=== PATIENT | female | born 1985 | race Caucasian/White ===

== ENCOUNTER 2020-07-10 23:10 | Emergency (ER) | payer OTHER, SELFPAY ==
--- NOTE | ~2020-07-10 | CT_ITS ---
EXAMINATION: CT CHEST WITHOUT CONTRAST CLINICAL INFORMATION: Fall. Intoxicated. COMPARISON: Chest radiograph dated 08/03/2010 TECHNIQUE: Multidetector volumetric CT imaging of the chest was done. Axial MIP volume rendering provided. Sagittal and coronal reformatted images were obtained. This CT examination was performed using dose optimization techniques as appropriate, variously including the following: *Automated exposure control *Adjustment of mA and/or kV according to patient size (this includes techniques or standardized protocols for targeted exams where dose is matched to indication/reason for exam; i.e. extremities or head) *Use of iterative reconstruction technique DLP: 235 mGy-cm FINDINGS: LANDFILL ATTENDANT: Clear lungs LUNGS: Mild dependent subpleural atelectasis in the lower lobes bilaterally. As seen on image 48/63 of series 8, there are focal areas of subpleural groundglass attenuation adjacent to the right fourth, fifth, sixth, and seventh ribs posterolaterally which may correspond to small focal contusions. No additional airspace consolidation. A small 1.5 cm bleb is present within the left upper lobe anteriorly. There is a small focus of dependent mucus within the trachea and right mainstem bronchus. Central airways are otherwise clear. MEDIASTINUM: The mediastinum is normal. PLEURA: There is no pleural effusion. No pleural mass or thickening. AXILLA: No lymphadenopathy. UPPER ABDOMEN: Unremarkable. OSSEOUS STRUCTURES: Chronic appearing indentation the superior endplate of the T3 vertebral body is likely chronic, possibly developmental. No acute thoracic vertebral fractures are identified. As seen on the prior CT of the cervical spine, there is a nondisplaced fracture of the right first rib posteriorly. The right second and third ribs are intact. There is are nondisplaced fractures of the right fourth, fifth, and sixth ribs posterolaterally and the right sixth, seventh, and eighth fractures anteriorly. No left-sided rib fractures are identified. CT/CT chest wo con IMPRESSION: 1. Nondisplaced fracture of the right first rib posteriorly, the right fourth, fifth, and sixth ribs posterolaterally, and the right sixth, seventh, and eighth ribs anteriorly. 2. A few subtle subpleural pulmonary contusions in the right lung. Mild dependent atelectasis. No pneumothorax or pleural effusion.
--- NOTE | ~2020-07-10 | CT_ITS ---
EXAMINATION: CT ABDOMEN AND PELVIS WITH CONTRAST CLINICAL INFORMATION: Fall. Intoxicated. COMPARISON: None TECHNIQUE: Multidetector volumetric images were obtained from the superior aspect of the liver through the pubic symphysis following administration 85 mL of Omnipaque 350 intravenous contrast. Sagittal and coronal reformatted images were obtained on the technologist's workstation. Oral contrast: No This CT examination was performed using dose optimization techniques as appropriate, variously including the following: *Automated exposure control *Adjustment of mA and/or kV according to patient size (this includes techniques or standardized protocols for targeted exams where dose is matched to indication/reason for exam; i.e. extremities or head) *Use of iterative reconstruction technique DLP: 373 mGy-cm FINDINGS: LUNG BASES: Mild dependent atelectasis. No effusion. Heart is normal in size. LIVER, GALLBLADDER, AND BILIARY TREE: Relative hypoattenuation of the hepatic parenchyma is consistent with steatosis. Liver is normal in size and contour. The gallbladder is unremarkable with no evidence of radiopaque gallstones, gallbladder wall thickening, or obvious pericholecystic inflammatory changes. PANCREAS: Unremarkable. SPLEEN: Unremarkable. ADRENAL GLANDS: Unremarkable. KIDNEYS AND URETERS: The kidneys are normal in size, shape, and attenuation. No hydronephrosis, hydroureter, or calculi seen. No perinephric stranding. BLADDER: Markedly distended. Normal wall thickness. No appreciable intraluminal abnormalities. GASTROINTESTINAL TRACT: Stomach, small bowel, and colon are normal in caliber. No bowel wall thickening or surrounding inflammatory changes. Appendix is normal. No intraperitoneal free fluid or free air. ABDOMINAL WALL: No significant hernia is appreciated. LYMPH NODES: Normal. VASCULAR: Unremarkable. PELVIC VISCERA: Multiple follicular cysts are present at both ovaries. No suspicious focal abnormalities. There is a hypodense curved tubular structure within the vagina which may correspond to a tampon. There is a intermediate density 2.2 x 1.8 x 2.4 cm cystic structure within the right vaginal wall posterolaterally. This could correspond to an epidermoid inclusion cyst based upon the density . Bartholin's gland cyst or Luis Alberto's duct cyst are also possible. OSSEOUS STRUCTURES: No acute fracture or malalignment. CT/CT abdomen pelvis w con IMPRESSION: 1. No acute abnormalities in the abdomen and pelvis. 2. Markedly distended bladder 3. Hepatic steatosis. 4. Foreign body in the vagina, likely a tampon. 5. A 2.4 cm cystic structure in the lateral vaginal wall, potentially epidermal inclusion cyst, Bartholin's gland cyst, or Luis Alberto's duct cyst.
--- NOTE | ~2020-07-10 | CT_ITS ---
EXAMINATION: HEAD CT WITHOUT CONTRAST CERVICAL SPINE CT WITHOUT CONTRAST CLINICAL INFORMATION: Fall. Intoxicated. COMPARISON: 08/03/2010 TECHNIQUE: Contiguous axial imaging of the head was performed without the administration of IV contrast. Axial multidetector volumetric images were also performed through the cervical spine without intravenous contrast. Multiplanar reconstructed images in coronal and sagittal orientations were submitted. This CT examination was performed using dose optimization techniques as appropriate, variously including the following: *Automated exposure control *Adjustment of mA and/or kV according to patient size (this includes techniques or standardized protocols for targeted exams where dose is matched to indication/reason for exam; i.e. extremities or head) *Use of iterative reconstruction technique DOSE: 982 mGy-cm FINDINGS: HEAD: There is no evidence of acute intracranial hemorrhage or territorial infarction. No abnormal mass-effect or midline shift. No extra-axial fluid collections. Andrade to white matter differentiation is well preserved. The ventricles are normal in size and configuration. There is no abnormal attenuation within the brain parenchyma. The soft tissues and osseous structures are otherwise normal. There is a 7 mm subgaleal hematoma over the right parietal calvarium. No underlying calvarial fractures are identified. The sinuses and mastoid air cells are clear. CERVICAL SPINE: Vertebral body heights are normal. No fractures of the vertebral bodies or posterior elements. Reversal of the normal cervical lordosis is likely positional or degenerative. No vertebral body or posterior element subluxation. There is an acute fracture of the right first rib posteriorly near the costovertebral junction. No additional fractures are identified. The craniocervical and atlantoaxial articulations are normal. There is mild degenerative disc disease at C5-C6 and C6-C7 with small endplate osteophytes. Facet joints are normal. Central canal and neural foramina appear patent without appreciable stenoses. No significant paravertebral soft tissue swelling. Cervical soft tissues are unremarkable. Imaged portions of the lung apices are clear. CT/CT cervical spine wo con IMPRESSION: 1. No acute intracranial pathology. Subgaleal hematoma over the right parietal calvarium. No underlying fracture. 2. No acute fracture or malalignment in the cervical spine. 3. Acute nondisplaced fracture of the right first rib posteriorly.
[2020-07-10 23:22] VITALS: BP 142/106; PULSE 100; RESP 16; TEMP 36.7; O2SAT 99; BMI 20.4
--- NOTE | 2020-07-11 00:09 | ED_ITS ---
HPI - Fall General Chief Complaint: Fall Stated Complaint: fall etoh Time Seen by Provider: 07/11/20 00:09 Source: patient Mode of arrival: EMS History of Present Illness HPI Narrative: This is a 34-year-old female who is brought in by EMS. She states that she had couple minutes today and then in EMS report had stated a six-pack of beer this evening. She states she is unclear of the sequence of events as that ?happened so fast? but denies hitting her head or loss of consciousness. However as per he heard a loud noise and found patient at the bottom of stairs unconscious for about 1 minute. Patient currently denies pain anywhere and denies any suicidal ideations and is declining detox at this time. Related Data Allergies Allergy/AdvReac Type Severity Reaction Status Date / Time Penicillins [PENICILLINS] Allergy Intermediate HIVES Verified 07/10/20 23:27 Review of Systems Review of Systems: Pertinent positives and negatives as stated in HPI 10 point review of systems is otherwise negative. [facility] Past Medical History Source: nursing notes reviewed Social History Social History Advance Directives: No Physical Exam Vital Signs: Vital Signs: Last Vital Signs Temp 98.0 F 07/10/20 23:22 Pulse 103 H 07/11/20 06:27 Resp 18 07/11/20 06:27 BP 147/93 H 07/11/20 06:27 Pulse Ox 100 07/11/20 06:27 Body Mass Index 20.4 VITAL SIGNS: Reviewed. GENERAL: Well developed, well nourished, in no acute distress. HEAD: Normocephalic/atraumatic EYES: PERRLA, EOMI EARS: Ext canals without abnormality, TMs non-bulging and non-erythematous, no hemotympanum NOSE: Nares patent bilateral OROPHARYNX: no oral lesions noted, posterior pharynx clear and no intraoral injury noted NECK: C-collar in place, no mid line cervical vertebral tenderness, no paraspinal tenderness LUNGS: Normal breath sounds. No adventitious sounds or accessory muscle use. SpO2<99> CARDIOVASCULAR: Regular rate and rhythm without noted murmurs ABDOMEN: Soft, non-tender, non-distended with bowel sounds. No rigidity. No guarding. No palpable masses or hernias noted MUSCULOSKELETAL: No tenderness, deformities, or effusions noted on gross inspection. EXTREMITIES: Full range of motion at bilateral shoulders, elbows, wrists with hand cut to length operator 5/5 and symmetric bilateral SKIN: Inspection of the skin reveals no ecchymosis, abrasions NEUROLOGIC: Alert and oriented x 4. Strength and sensation to light touch were grossly intact x 4. Course Course Course Narrative: This is a 34-year-old female with history and clinical presentation consistent with fall due to intoxication and no evidence of acute injury. However due to patient's intoxication will obtain CT scan of the head and cervical spine. On review of imaging for head and cervical spine it was noted that patient had a posterior right 1st rib fracture which prompted subsequent CT of the chest demonstrating fractures of 4/5/6/7/8, nondisplaced rib fractures with lung contusions and corresponding CT of the abdomen pelvis with IV contrast was negat ayaan for acute findings. On review of remaining investigations findings are consistent with chronic alcohol consumption. Patient treated for pain with Tylenol and Toradol as she is declining narcotics at this time due to current Suboxone program. 0625: On re-evaluation patient is having considerable pain and on further discussion and reassurance she is agreeable to receive additional narcotic pain medication. Patient then transferred in stable condition after receiving 25 mcg of fentanyl and 1 mg of Ativan. Reevaluation(s) Reevaluation #1: I discussed case with [facility], Dr. Posadas, who is accepting transfer to the ED. Time: 05:40 MDM - Fall Lab Data Result diagrams: 07/11/20 04:43 07/11/20 04:43 Labs: Lab Results 07/11/20 07/11/20 07/11/20 Range/Units 00:53 00:53 03:33 WBC (4.8-10.8) X10*3/uL RBC (4.20-5.50) X10*6/uL Hgb (12.0-16.0) g/dl Hct (37-47) % MCV (80-98) fL MCH (27.0-33.0) pg MCHC (31.0-35.0) g/dl RDW (11.0-16.0) % Plt Count (160-400) X10*3/uL MPV (9.4-12.3) fL Immature Gran % (Auto) (0.0-0.4) % Neut % (Auto) (45-73) % Lymph % (Auto) (20-40) % Cameron % (Auto) (2-11) % Eos % (Auto) (0-4) % Baso % (Auto) (0-2) % Lymph # (Auto) (1.2-4.9) X10*3/uL Cameron # (Auto) (0.1-1.2) X10*3/uL Eos # (Auto) (0.0-0.4) X10*3/uL Baso # (Auto) (0.0-0.2) X10*3/uL Abs Immat Gran (auto) (0.00-0.03) X10*3/uL Absolute Neuts (auto) (2.0-8.3) X10*3/uL Absolute Nucleated RBC (0.0-0.012) X10*3/uL Nucleated RBC % (auto) (0.0-0.2) /100WBC PT (10.8-13.0) SEC INR (0.9-1.1) Sodium (135-145) mmol/L Potassium (3.3-5.1) mmol/L Chloride (96-108) mmol/L Carbon Dioxide (22-29) mmol/L Anion Gap (12-20) BUN (9-16) mg/dL Creatinine (0.5-1.4) mg/dL Estim Creat Clear Calc Estimated GFR Random Glucose (60-115) mg/dL Calcium (8.4-10.2) mg/dL Total Bilirubin (0.0-1.0) mg/dL AST (5-31) U/L ALT (0-31) U/L Alkaline Phosphatase (39-117) U/L Total Protein (6.5-8.0) g/dL Albumin (3.5-5.0) g/dL Urine Test NEGATIVE (NEGATIVE) Urine Opiates Screen Not Detected (Not Detect) Ur Barbiturates Screen Not Detected (Not Detect) Ur Phencyclidine Scrn Not Detected (Not Detect) Ur Amphetamines Screen Not Detected (Not Detect) U Benzodiazepines Scrn Not Detected (Not Detect) Urine Cocaine Screen Not Detected (Not Detect) U Marijuana (THC) Screen POSITIVE H (Not Detect) Ethyl Alcohol mg/dL COVID-19 (MARCELLA) Negative (Negative) COVID-19 Clin Com See Note 07/11/20 07/11/20 07/11/20 Range/Units 04:43 04:43 04:43 WBC 10.7 (4.8-10.8) X10*3/uL RBC 4.01 L (4.20-5.50) X10*6/uL Hgb 13.8 (12.0-16.0) g/dl Hct 40.1 (37-47) % MCV 100.0 H (80-98) fL MCH 34.4 H (27.0-33.0) pg MCHC 34.4 (31.0-35.0) g/dl RDW 12.5 (11.0-16.0) % Plt Count 190 (160-400) X10*3/uL MPV 9.1 L (9.4-12.3) fL Immature Gran % (Auto) 1.0 H (0.0-0.4) % Neut % (Auto) 83.2 H (45-73) % Lymph % (Auto) 7.2 L (20-40) % Cameron % (Auto) 7.6 (2-11) % Eos % (Auto) 0.6 (0-4) % Baso % (Auto) 0.4 (0-2) % Lymph # (Auto) 0.8 L (1.2-4.9) X10*3/uL Cameron # (Auto) 0.8 (0.1-1.2) X10*3/uL Eos # (Auto) 0.1 (0.0-0.4) X10*3/uL Baso # (Auto) 0.0 (0.0-0.2) X10*3/uL Abs Immat Gran (auto) 0.11 H (0.00-0.03) X10*3/uL Absolute Neuts (auto) 8.9 H (2.0-8.3) X10*3/uL Absolute Nucleated RBC 0.000 (0.0-0.012) X10*3/uL Nucleated RBC % (auto) 0.0 (0.0-0.2) /100WBC PT 11.7 (10.8-13.0) SEC INR 1.0 (0.9-1.1) Sodium 140 (135-145) mmol/L Potassium 4.1 (3.3-5.1) mmol/L Chloride 101 (96-108) mmol/L Carbon Dioxide 29 (22-29) mmol/L Anion Gap 14 (12-20) BUN 6 L (9-16) mg/dL Creatinine 0.66 (0.5-1.4) mg/dL Estim Creat Clear Calc 103.3 Estimated GFR > 60 Random Glucose 103 (60-115) mg/dL Calcium 9.2 (8.4-10.2) mg/dL Total Bilirubin 0.5 (0.0-1.0) mg/dL AST 75 H (5-31) U/L ALT 24 (0-31) U/L Alkaline Phosphatase 60 (39-117) U/L Total Protein 7.2 (6.5-8.0) g/dL Albumin 4.7 (3.5-5.0) g/dL Urine Test (NEGATIVE) Urine Opiates Screen (Not Detect) Ur Barbiturates Screen (Not Detect) Ur Phencyclidine Scrn (Not Detect) Ur Amphetamines Screen (Not Detect) U Benzodiazepines Scrn (Not Detect) Urine Cocaine Screen (Not Detect) U Marijuana (THC) Screen (Not Detect) Ethyl Alcohol mg/dL COVID-19 (MARCELLA) (Negative) COVID-19 Clin Com 07/11/20 Range/Units 04:43 WBC (4.8-10.8) X10*3/uL RBC (4.20-5.50) X10*6/uL Hgb (12.0-16.0) g/dl Hct (37-47) % MCV (80-98) fL MCH (27.0-33.0) pg MCHC (31.0-35.0) g/dl RDW (11.0-16.0) % Plt Count (160-400) X10*3/uL MPV (9.4-12.3) fL Immature Gran % (Auto) (0.0-0.4) % Neut % (Auto) (45-73) % Lymph % (Auto) (20-40) % Cameron % (Auto) (2-11) % Eos % (Auto) (0-4) % Baso % (Auto) (0-2) % Lymph # (Auto) (1.2-4.9) X10*3/uL Cameron # (Auto) (0.1-1.2) X10*3/uL Eos # (Auto) (0.0-0.4) X10*3/uL Baso # (Auto) (0.0-0.2) X10*3/uL Abs Immat Gran (auto) (0.00-0.03) X10*3/uL Absolute Neuts (auto) (2.0-8.3) X10*3/uL Absolute Nucleated RBC (0.0-0.012) X10*3/uL Nucleated RBC % (auto) (0.0-0.2) /100WBC PT (10.8-13.0) SEC INR (0.9-1.1) Sodium (135-145) mmol/L Potassium (3.3-5.1) mmol/L Chloride (96-108) mmol/L Carbon Dioxide (22-29) mmol/L Anion Gap (12-20) BUN (9-16) mg/dL Creatinine (0.5-1.4) mg/dL Estim Creat Clear Calc Estimated GFR Random Glucose (60-115) mg/dL Calcium (8.4-10.2) mg/dL Total Bilirubin (0.0-1.0) mg/dL AST (5-31) U/L ALT (0-31) U/L Alkaline Phosphatase (39-117) U/L Total Protein (6.5-8.0) g/dL Albumin (3.5-5.0) g/dL Urine Test (NEGATIVE) Urine Opiates Screen (Not Detect) Ur Barbiturates Screen (Not Detect) Ur Phencyclidine Scrn (Not Detect) Ur Amphetamines Screen (Not Detect) U Benzodiazepines Scrn (Not Detect) Urine Cocaine Screen (Not Detect) U Marijuana (THC) Screen (Not Detect) Ethyl Alcohol 129 mg/dL COVID-19 (MARCELLA) (Negative) COVID-19 Clin Com Discharge Plan Discharge Clinical Impression: Hematoma Multiple fractures of ribs of right side Qualifiers: Encounter type: initial encounter Fracture type: closed Qualified Code(s): S22.41XA - Multiple fractures of ribs, right side, initial encounter for closed fracture Contusion of right lung Qualifiers: Encounter type: initial encounter Qualified Code(s): S27.321A - Contusion of lung, unilateral, initial encounter Patient Disposition: [facility] Transfer Details: Trauma with six rib fractures, lung contusion
[2020-07-11 01:07] LABS: UPreg QC Valid YES; Urine Pregnancy NEGATIVE (NEGATIVE)
[2020-07-11 03:28] LABS: Amphetamine Screen Urine Not Detected (Not Detect); Barbiturates, Urine Not Detected (Not Detect); Benzodiazepines Screen Urine Not Detected (Not Detect); Cannabinoid Screen Urine POSITIVE (Not Detect); Cocaine Screen Urine Not Detected (Not Detect); Opiate Screen Urine Not Detected (Not Detect); Phencyclidine Screen Urine Not Detected (Not Detect)
[2020-07-11 03:58] LABS: COVID-19 Test Negative (Negative); IDNOW Serial# 9DD0AD1C
[2020-07-11 04:00] VITALS: BP 137/94; PULSE 101; RESP 18; O2SAT 96
[2020-07-11] MEDS: Ketorolac Tromethamine 15 MG/ML VIAL IVPUSH (04:00)
[2020-07-11 04:48] LABS: MANUAL DIFF FLAG NO
[2020-07-11 04:49] LABS: Basophils Percent Auto 0.4 % (0-2); Eosinophils Absolute Auto 0.1 X10*3/uL (0.0-0.4); Eosinophils Percent Auto 0.6 % (0-4); Hematocrit 40.1 % (37-47); Hemoglobin 13.8 g/dl (12.0-16.0); Imm Gran Abs Auto 0.11 X10*3/uL (0.00-0.03); Lymphocytes Absolute Auto 0.8 X10*3/uL (1.2-4.9); Lymphocytes Percent Auto 7.2 % (20-40); Mean Corpuscular HGB Conc 34.4 g/dl (31.0-35.0); Mean Corpuscular Hemoglobin 34.4 pg (27.0-33.0); Mean Platelet Volume 9.1 fL (9.4-12.3); Monocytes Absolute Auto 0.8 X10*3/uL (0.1-1.2); Monocytes Percent Auto 7.6 % (2-11); Neutrophils Absolute Auto 8.9 X10*3/uL (2.0-8.3); Neutrophils Percent Auto 83.2 % (45-73); Platelet Count 190 X10*3/uL (160-400); Red Blood Count 4.01 X10*6/uL (4.20-5.50); Red Cell Distribution Width 12.5 % (11.0-16.0); White Blood Count 10.7 X10*3/uL (4.8-10.8)
[2020-07-11] MEDS: 0.9 % Sodium Chloride 1,000 ML 999 ML IV (04:52)
[2020-07-11 04:54] LABS: Prothrombin Time 11.7 SEC (10.8-13.0)
[2020-07-11 05:09] LABS: Ethanol 129 mg/dL
[2020-07-11 05:12] LABS: Alanine Aminotransferase 24 U/L (0-31); Albumin Level 4.7 g/dL (3.5-5.0); Alkaline Phosphatase 60 U/L (39-117); Anion Gap 14 (12-20); Aspartate Amino Transferase 75 U/L (5-31); Bilirubin Total 0.5 mg/dL (0.0-1.0); Blood Urea Nitrogen 6 mg/dL (9-16); Calcium 9.2 mg/dL (8.4-10.2); Carbon Dioxide 29 mmol/L (22-29); Chloride 101 mmol/L (96-108); Creatinine Clr Calc Pharmacy 103.3; Estimated Glomerular Filt Rate > 60; Glucose Random 103 mg/dL (60-115); Potassium 4.1 mmol/L (3.3-5.1); Sodium 140 mmol/L (135-145); Total Protein 7.2 g/dL (6.5-8.0)
[2020-07-11 06:27] VITALS: BP 147/93; PULSE 103; RESP 18; O2SAT 100
[2020-07-11] MEDS: Acetaminophen 325 MG TABLET 975 MG PO (06:32)
--- NOTE | 2020-07-11 06:37 | PC.NURSE ---
PT MEDICATED PER MD ORDER WITH PO TYLENOL. MD BERNAL TO BEDSIDE PRIOR TO PT'S DEPARTURE TO REASSESS PAIN AND ONCE AGAIN OFFERED ADDITIONAL PAIN MEDICATIONS FOR DISCOMFORT. PT INITIALLY NOT WANTING NARCOTICS DUE TO CURRENT SUBOXONE USE. PT NOW AGREEABLE TO STRONGER PAIN MEDICATION D/T 01/05 RIGHT MIDDLE BACK PAIN S/T RIB FX.
[2020-07-11] MEDS: LORazepam 2 MG/ML VIAL 1 MG IVPUSH (06:41)
[2020-07-11] MEDS: fentaNYL citrate/PF 100 MCG/2 ML VIAL 25 MCG IVPUSH (06:42)
[2020-07-11 06:50] VITALS: BP 123/87; PULSE 87; RESP 18; O2SAT 100
--- NOTE | 2020-07-11 06:57 | PC.NURSE ---
PT REPORTS IMPROVEMENT IN PAIN S/P MED ADMINISTRATION. LOADING FOR EMS TRANSPORT NOW
--- NOTE | 2020-07-11 07:17 | PC.NURSE ---
THIS RN ATTEMPTED TO GIVE NURSE TO NURSE REPORT AT [facility] BUT WAS UNSUCCESSFUL. CALL X2 WITH NO ANSWER AT [phone] AND CALLED TWICE TO [phone] WITH THE FIRST CALL RINGING UNTIL THE LINE DISCONNECTED AND THE 2ND CALL WAS UNANSWERED. THIS RN NOTIFIED BELT FIXER VIRGIE OF THE INABILITY TO REACH/CONNECT. PAPER WITH NOTES/INFORMATION LEFT WITH VIRGIE IF [facility] CALLS FOR REPORT.
== END 2020-07-11 07:00 | disposition short-term general hospital (02) ==
PROVIDERS: Emergency Provider Student in an Organized Health Care Education/Training Program
DX: S22.41XA Multiple fractures of ribs, right side, initial encounter for closed fracture (principal); S27.321A Contusion of lung, unilateral, initial encounter; F10.129 Alcohol abuse with intoxication, unspecified; R07.81 Pleurodynia; Y90.6 Blood alcohol level of 120-199 mg/100 ml; W01.0XXA Fall on same level from slipping, tripping and stumbling without subsequent striking against object, initial encounter; Y93.9 Activity, unspecified; Y92.9 Unspecified place or not applicable; Y99.9 Unspecified external cause status; Z20.822 Contact with and (suspected) exposure to COVID-19
CPT/HCPCS: 36415; 70450; 71250; 72125; 74177; 80053; 80307; 80320; 81025; 85025; 85610; 87635; 90471; 90715; 96361; 96365; 96375; 96376; 99284; J1885; J2060; J3010; Q9967

== ENCOUNTER 2020-11-15 23:53 | Inpatient (IN) | payer OTHER, SELFPAY ==
--- NOTE | ~2020-11-15 | CT_ITS ---
EXAMINATION: CT ABDOMEN AND PELVIS WITH CONTRAST CLINICAL INFORMATION: Pancreatitis COMPARISON: 07/11/2020 TECHNIQUE: Multidetector volumetric images were obtained from the superior aspect of the liver through the pubic symphysis following administration 85 mL of Omnipaque 350 intravenous contrast. Sagittal and coronal reformatted images were obtained on the technologist's workstation. Oral contrast: No This CT examination was performed using dose optimization techniques as appropriate, variously including the following: *Automated exposure control *Adjustment of mA and/or kV according to patient size (this includes techniques or standardized protocols for targeted exams where dose is matched to indication/reason for exam; i.e. extremities or head) *Use of iterative reconstruction technique DLP: 3 L5 mGy-cm FINDINGS: LUNG BASES: The visualized lung bases are unremarkable. LIVER, GALLBLADDER, AND BILIARY TREE: The liver demonstrates hypoattenuation consistent with steatosis. No biliary ductal dilatation is present. The gallbladder is unremarkable with no evidence of radiopaque gallstones, gallbladder wall thickening, or obvious pericholecystic inflammatory changes. PANCREAS: Mild stranding is noted in the proximal pancreas, suspicious for pancreatitis. No focal necrosis is seen. Trace retroperitoneal fluid is noted. SPLEEN: Unremarkable. ADRENAL GLANDS: Unremarkable. KIDNEYS AND URETERS: The kidneys are normal in size, shape, and attenuation. No hydronephrosis, hydroureter, or obstructing calculi seen. No perinephric stranding. BLADDER: Unremarkable. GASTROINTESTINAL TRACT: No evidence of bowel obstruction. There is mural prominence of much of the collapsed colon, of uncertain clinical significance. The appendix is unremarkable. No free air is seen. ABDOMINAL WALL: No significant hernia is appreciated. LYMPH NODES: Normal. VASCULAR: Unremarkable. PELVIC VISCERA: Unremarkable. OSSEOUS STRUCTURES: Healing posterior lower right rib fractures noted. CT/CT abdomen pelvis w con IMPRESSION: 1. Mild peripancreatic stranding and fluid, suspicious for pancreatitis. 2. Thick-walled appearance of much of the colon, which could be accentuated by luminal collapse. In the proper clinical setting, a colitis would be difficult to exclude. 3. Hepatic steatosis.
[2020-11-15 23:54] VITALS: BP 146/101; PULSE 122; RESP 18; TEMP 36.9; O2SAT 94; BMI 19.7
[2020-11-16] VITALS (15 sets, daily range): BP systolic 119–157; BP diastolic 84–114; PULSE 88–131; RESP 13–20; TEMP 37.4; O2SAT 96–100; BMI 20.5
--- NOTE | 2020-11-16 | ECG_ITS ---
Test Reason : N/V Blood Pressure : / mmHG Vent. Rate : 092 BPM Atrial Rate : 092 BPM P-R Int : 164 ms QRS Dur : 070 ms QT Int : 384 ms P-R-T Axes : 058 045 046 degrees QTc Int : 474 ms Normal sinus rhythm Normal ECG When compared with ECG of 03-AUG-2010 13:47, Vent. rate has decreased BY 52 BPM Referred By: Gareth Valecnia Electronically Signed By:CATHERINE AU MD
--- NOTE | 2020-11-16 00:15 | PC.NURSE ---
IV established, labs obtained. Pt self reports daily ETOH, states she drinks vodka nips throughout the day, unable to estimate amount. Pt states that due to the vomiting, she has not drank any alcohol today. Pt states that it has been a long time since she has gone a day without alcohol. Pt noted to be tremulous, pt insisting her tremor are r/t chills and not alcohol withdrawals. VSS at this time, NSR on the monitor @ 88 bpm. Pt aware of plan for IVF and antiemetics.
--- NOTE | 2020-11-16 00:18 | ED_ITS ---
HPI - Nausea/Vomiting/Diarrhea General Chief complaint: Nausea/Vomiting/Diarrhea Stated complaint: vomiting Time Seen by Provider: 11/16/20 00:18 Source: patient Mode of arrival: ambulatory Limitations: no limitations History of Present Illness HPI Narrative: Patient no significant past medical history does drink alcohol last drink was 2 days ago been vomiting all day today more than 15 times with slight epigastric pain and back pain denies any fever no diarrhea no history of alcohol withdrawal in the past no urinary complaints no chills patient does not get sick like this very often no use of marijuana Related Data Allergies Allergy/AdvReac Type Severity Reaction Status Date / Time Penicillins [PENICILLINS] Allergy Intermediate HIVES Verified 11/15/20 23:58 Review of Systems Review of Systems: Constitutional : No Weight loss, No Fever, No Chills ENT/Mouth : No sore throat, No Rhinorrhea Eyes: No Eye Pain, No Swelling Cardiovascular : No Chest Pain, no palpitations Respiratory : No Cough, No Sputum, no shortness of breath Gastrointestinal : ++ Nausea, ++ Vomiting, No Diarrhea, + abdominal Pain, no black stools Genitourinary : No Dysuria, No Urinary Frequency Musculoskeletal : No joint pain, No Myalgias, No Joint Swelling Skin : No Skin Lesions, No rash Neuro : No Weakness, No Numbness, No Dizziness, No Headache Psych : No Anxiety/Panic, No Depression Heme/Lymph: No Bruising, No Lymphadenopathy Endocrine : No Polyuria, No Polydipsia All other systems reviewed and are negative [facility] Past Medical History Medical History No known health problems Social History Social History Advance Directives: No Advance Directives Information Provided: Yes Patient : No Physical Exam Vital Signs: Vital Signs: Last Vital Signs Temp 98.4 F 11/15/20 23:54 Pulse 88 11/16/20 00:50 Resp 16 11/16/20 00:50 BP 146/101 H 11/15/20 23:54 Pulse Ox 94 11/15/20 23:54 Body Mass Index 19.7 Appearance: Alert. Oriented X3. No acute distress. Eyes: PERRLA, No Nystagmus ENT: Pharynx normal. Dry oral mucosa Neck: Normal inspection. Neck supple. CVS: Normal heart rate and rhythm. Pulses normal. Respiratory: No respiratory distress. Equal air entry bilateral, no wheezing/rales/rhonchi Abdomen: Soft and mild epigastric tenderness Bowel sounds are present, no mass palpable, no CVA tenderness Skin: Skin warm and dry. Normal skin color. Normal skin turgor. Extremities: No lower extremity edema. No calf tenderness Neuro: Oriented X 3. No motor deficit. No sensory deficit.No cerebellar signs , cranial nerves II-XII intact MDM - Nausea/Vomiting/Diarrhea MDM Narrative Medical decision making narrative: Patient with alcohol dependence with abdominal pain and vomiting lab workup and CT scan showed uncomplicated acute pancreatitis. Will admit patient for alcohol induced pancreatitis and alcohol dependence Lab Data Attestation: I reviewed the patient's lab results. Result diagrams: 11/16/20 00:33 11/16/20 00:33 Labs: Lab Results 11/16/20 11/16/20 11/16/20 Range/Units 00:33 00:33 00:33 WBC 10.0 (4.8-10.8) X10*3/uL RBC 4.09 L (4.20-5.50) X10*6/uL Hgb 14.9 (12.0-16.0) g/dl Hct 41.8 (37-47) % MCV 102.2 H (80-98) fL MCH 36.4 H (27.0-33.0) pg MCHC 35.6 H (31.0-35.0) g/dl RDW 12.9 (11.0-16.0) % Plt Count 211 (160-400) X10*3/uL MPV 10.0 (9.4-12.3) fL Immature Gran % (Auto) 0.5 H (0.0-0.4) % Neut % (Auto) 87.0 H (45-73) % Lymph % (Auto) 2.7 L (20-40) % [place] % (Auto) 9.6 (2-11) % Eos % (Auto) 0.0 (0-4) % Baso % (Auto) 0.2 (0-2) % Lymph # (Auto) 0.3 L (1.2-4.9) X10*3/uL [place] # (Auto) 1.0 (0.1-1.2) X10*3/uL Eos # (Auto) 0.0 (0.0-0.4) X10*3/uL Baso # (Auto) 0.0 (0.0-0.2) X10*3/uL Abs Immat Gran (auto) 0.05 H (0.00-0.03) X10*3/uL Absolute Neuts (auto) 8.7 H (2.0-8.3) X10*3/uL Absolute Nucleated RBC 0.000 (0.0-0.012) X10*3/uL Nucleated RBC % (auto) 0.0 (0.0-0.2) /100WBC Sodium 144 (135-145) mmol/L Potassium 3.6 (3.3-5.1) mmol/L Chloride 96 (96-108) mmol/L Carbon Dioxide 24 (22-29) mmol/L Anion Gap 28 H (12-20) BUN 7 L (9-16) mg/dL Creatinine 0.85 (0.5-1.4) mg/dL Estim Creat Clear Calc 76.8 Estimated GFR > 60 Random Glucose 96 (60-115) mg/dL Calcium 10.2 D (8.4-10.2) mg/dL Magnesium 1.3 L* (1.6-2.6) mg/dL Total Bilirubin 2.4 H (0.0-1.0) mg/dL AST 187 H (5-31) U/L ALT 69 H (0-31) U/L Alkaline Phosphatase 133 H D (39-117) U/L Total Protein 7.6 (6.5-8.0) g/dL Albumin 4.7 (3.5-5.0) g/dL Lipase 503 H (8-78) U/L Beta HCG, Quant < 2 mIU/mL Urine Color Urine Appearance Urine pH (5.0-8.0) Ur Specific [place] (1.005-1.025) Urine Protein (NEG-TRACE) MG/DL Urine Glucose (UA) (NEG) MG/DL Urine Ketones (NEG) MG/DL Urine Blood (NEG) Urine Nitrite (NEG) Ur Leukocyte Esterase (NEG) Urine RBC (0) /HPF Urine WBC (0-4) /HPF Ur Squamous Epith Cells /LPF Urine Bacteria /LPF Urine Mucus /LPF Ethyl Alcohol < 10 mg/dL 11/16/20 Range/Units 04:19 WBC (4.8-10.8) X10*3/uL RBC (4.20-5.50) X10*6/uL Hgb (12.0-16.0) g/dl Hct (37-47) % MCV (80-98) fL MCH (27.0-33.0) pg MCHC (31.0-35.0) g/dl RDW (11.0-16.0) % Plt Count (160-400) X10*3/uL MPV (9.4-12.3) fL Immature Gran % (Auto) (0.0-0.4) % Neut % (Auto) (45-73) % Lymph % (Auto) (20-40) % [place] % (Auto) (2-11) % Eos % (Auto) (0-4) % Baso % (Auto) (0-2) % Lymph # (Auto) (1.2-4.9) X10*3/uL [place] # (Auto) (0.1-1.2) X10*3/uL Eos # (Auto) (0.0-0.4) X10*3/uL Baso # (Auto) (0.0-0.2) X10*3/uL Abs Immat Gran (auto) (0.00-0.03) X10*3/uL Absolute Neuts (auto) (2.0-8.3) X10*3/uL Absolute Nucleated RBC (0.0-0.012) X10*3/uL Nucleated RBC % (auto) (0.0-0.2) /100WBC Sodium (135-145) mmol/L Potassium (3.3-5.1) mmol/L Chloride (96-108) mmol/L Carbon Dioxide (22-29) mmol/L Anion Gap (12-20) BUN (9-16) mg/dL Creatinine (0.5-1.4) mg/dL Estim Creat Clear Calc Estimated GFR Random Glucose (60-115) mg/dL Calcium (8.4-10.2) mg/dL Magnesium (1.6-2.6) mg/dL Total Bilirubin (0.0-1.0) mg/dL AST (5-31) U/L ALT (0-31) U/L Alkaline Phosphatase (39-117) U/L Total Protein (6.5-8.0) g/dL Albumin (3.5-5.0) g/dL Lipase (8-78) U/L Beta HCG, Quant mIU/mL Urine Color YELLOW Urine Appearance HAZY Urine pH 7.5 (5.0-8.0) Ur Specific [place] 1.015 (1.005-1.025) Urine Protein 2+ H (NEG-TRACE) MG/DL Urine Glucose (UA) NEG (NEG) MG/DL Urine Ketones 15 (NEG) MG/DL Urine Blood 3+ H (NEG) Urine Nitrite NEG (NEG) Ur Leukocyte Esterase NEG (NEG) Urine RBC 0-2 (0) /HPF Urine WBC 0-2 (0-4) /HPF Ur Squamous Epith Cells 1+ /LPF Urine Bacteria 4+ /LPF Urine Mucus TRACE /LPF Ethyl Alcohol mg/dL Discharge Plan Discharge Clinical Impression: Hypomagnesemia Pancreatitis Qualifiers: Chronicity: acute Pancreatitis type: alcohol induced Acute pancreatitis complication: no infection or necrosis Qualified Code(s): K85.20 - Alcohol induced acute pancreatitis without necrosis or infection Patient Disposition: Admitted As Inpatient
--- NOTE | 2020-11-16 00:27 | PC.NURSE ---
at bedside for primary eval.
[2020-11-16 00:39] LABS: MANUAL DIFF FLAG NO
[2020-11-16] MEDS: 0.9 % Sodium Chloride 1,000 ML 999 ML IVCONT ×3 (00:41→01:53)
[2020-11-16] MEDS: Famotidine/PF 20 MG/2 ML VIAL IVPUSH ×3 (00:41→22:38)
[2020-11-16] MEDS: Acetaminophen 325 MG TABLET 650 MG PO (00:48)
[2020-11-16 00:59] LABS: Ethanol < 10 mg/dL
[2020-11-16 01:04] LABS: Alanine Aminotransferase 69 U/L (0-31); Albumin Level 4.7 g/dL (3.5-5.0); Alkaline Phosphatase 133 U/L (39-117); Anion Gap 28 (12-20); Aspartate Amino Transferase 187 U/L (5-31); Bilirubin Total 2.4 mg/dL (0.0-1.0); Blood Urea Nitrogen 7 mg/dL (9-16); Calcium 10.2 mg/dL (8.4-10.2); Carbon Dioxide 24 mmol/L (22-29); Chloride 96 mmol/L (96-108); Creatinine Clr Calc Pharmacy 76.8; Estimated Glomerular Filt Rate > 60; Glucose Random 96 mg/dL (60-115); Lipase 503 U/L (8-78); Potassium 3.6 mmol/L (3.3-5.1); Sodium 144 mmol/L (135-145); Total Protein 7.6 g/dL (6.5-8.0)
--- NOTE | 2020-11-16 01:10 | PC.NURSE ---
Pt vomiting all over self and bed. MD aware. Plan for Ativan and Zofran.
[2020-11-16] MEDS: LORazepam 2 MG/ML VIAL 1 MG IVPUSH ×3 (01:15→20:23)
[2020-11-16] MEDS: ondansetron HCL 4 MG/2 ML VIAL IVPUSH ×2 (01:15→07:10)
[2020-11-16 01:18] LABS: Basophils Percent Auto 0.2 % (0-2); Hematocrit 41.8 % (37-47); Hemoglobin 14.9 g/dl (12.0-16.0); Imm Gran Abs Auto 0.05 X10*3/uL (0.00-0.03); Imm Gran Pct Auto 0.5 % (0.0-0.4); Lymphocytes Absolute Auto 0.3 X10*3/uL (1.2-4.9); Lymphocytes Percent Auto 2.7 % (20-40); Mean Corpuscular HGB Conc 35.6 g/dl (31.0-35.0); Mean Corpuscular Hemoglobin 36.4 pg (27.0-33.0); Mean Corpuscular Volume 102.2 fL (80-98); Monocytes Percent Auto 9.6 % (2-11); Neutrophils Absolute Auto 8.7 X10*3/uL (2.0-8.3); Platelet Count 211 X10*3/uL (160-400); Red Blood Count 4.09 X10*6/uL (4.20-5.50); Red Cell Distribution Width 12.9 % (11.0-16.0)
[2020-11-16] MEDS: Morphine Sulfate 4 MG/ML CARTRIDGE IVPUSH ×2 (01:53→04:13)
--- NOTE | 2020-11-16 01:56 | PC.NURSE ---
Pt medicated per JUN for 1010 back pain. Pt aware of plan for CT due to elevated Lipase. VSS at this time, pt tachycardic @ 115 bpm. CIWA noted in worklist.
[2020-11-16 02:12] LABS: Magnesium 1.3 mg/dL (1.6-2.6)
--- NOTE | 2020-11-16 02:12 | PC.NURSE ---
Magnesium 1.3 RN notified notified
[2020-11-16] MEDS: Magnesium Sulfate/H2O 2 GM/50 ML PIGGYBACK IV (02:22)
--- NOTE | 2020-11-16 02:28 | PC.NURSE ---
Mag infusing per MAR. Pt awaiting CT.
[2020-11-16 03:05] LABS: HCG Quantitative < 2 mIU/mL
[2020-11-16] MEDS: iohexoL 350 MG/ML 100 ML INFUS..BTL 85 ML IV (03:40)
[2020-11-16 04:26] LABS: Glucose Urine UA NEG (NEG); Leukocyte Esterase Urine NEG (NEG); Nitrite Urine NEG (NEG); PH 7.5 (5.0-8.0); Specific Gravity - Urine 1.015 (1.005-1.025); Urine Blood 3+ (NEG); Urine Ketones 15 MG/DL (NEG); Urine Protein 2+ MG/DL (NEG-TRACE)
[2020-11-16 04:31] LABS: Appearance Urine HAZY; Color Urine YELLOW
[2020-11-16 04:42] LABS: Bacteria Urine 4+ /LPF; RBC Urine 0-2 /HPF (0); Squamous Epithelial Cell Urine 1+ /LPF; WBC Urine 0-2 /HPF (0-4)
[2020-11-16 04:43] LABS: Mucus Urine TRACE /LPF; UACC CULT YES
[2020-11-16] MEDS: Folic Acid 1 MG TABLET PO ×2 (05:20→09:37)
[2020-11-16] MEDS: Thiamine HCL 100 MG TABLET PO ×2 (05:21→09:37)
--- NOTE | 2020-11-16 05:41 | PC.NURSE ---
Hospitalist at bedside.
--- NOTE | 2020-11-16 05:46 | PM.IMHP ---
History of Present Illness Date of Service: 11/16/20 Chief Complaint: Nausea vomiting 35-year-old female with no significant past medical history except for alcohol use presented to the hospital with a chief complaint of nausea vomiting. Patient mentioned that she had multiple episodes of nausea and vomiting yesterday; denies any blood in the vomitus. Denies any fever chills cough. Denies any nausea vomiting. Denies any abdominal discomfort. Later she developed pain in her back of the shoulders bilaterally; denies any numbness tingling or neck pain. Denies any falls or trauma. A attributes the pain in the back to profuse vomiting; Patient reports that she has been drinking alcohol about 5 shots per day almost every day for the past 6 months; Reports that she smokes half pack of cigarettes per day denies any illicit drug use. Patient denies taking any eoib-duw-sfdartt pain medications; denies eating food outside; patient does not think it is food poisoning; Review of all other systems is negative except mentioned above ER course: Per ER team patient CT abdomen showed possible pancreatitis and early colitis; lab showed hypomagnesemia Jailyn-repleted and mild transaminitis; admitted to the hospital for further management. [facility] Medical History No known health problems Social History Alcohol intake: current Alcohol intake frequency: 3 or more drinks per day Alcohol type: hard liquor Patient Tobacco Use Status: Current everyday Tobacco user Use of substances other than those prescribed or required for medical reasons: No Advance Directives: No Advance Directives Information Provided: Yes Patient : No service: No Current occupational status: unemployed Meds Allergies Allergy/AdvReac Type Severity Reaction Status Date / Time Penicillins [PENICILLINS] Allergy Intermediate HIVES Verified 11/15/20 23:58 Active Medications: Current Medications Generic Name Dose Route Start Last Admin Trade Name Rossq PRN Reason Stop Dose Admin Famotidine 20 mg 11/16/20 09:00 Famotidine/Pf 20 Mg/2 Ml Vial IVPUSH BID NESS Folic Acid 1 mg 11/16/20 09:00 Folic Acid 1 Mg Tablet PO 11/19/20 08:59 DAILY NESS Hydromorphone HCl 0.5 mg 11/16/20 05:38 Hydromorphone Hcl 0.5 Mg/0.5 Ml Syringe SUBCUT Q4H PRN Pain, Severe (Pain Scale 7-10) Hydroxyzine HCl 25 mg 11/16/20 05:38 Hydroxyzine Hcl 25 Mg Tablet PO Q6H PRN Anxiety Dextrose/Sodium Chloride 1,000 mls @ 100 mls/hr 11/16/20 05:45 D51/2ns IVCONT .Q10H NESS Lorazepam 1 mg 11/16/20 05:38 Lorazepam 1 Mg Tablet PO 11/20/20 05:37 Q4H PRN Breakthrough alcohol withdrawa Melatonin 6 mg 11/16/20 05:38 Melatonin 3 Mg Tablet PO BEDTIME PRN Insomnia Multivitamins 1 tab 11/16/20 09:00 B-Complex With Vitamin C Tablet PO DAILY NESS Nicotine 14 mg 11/16/20 09:00 Nicotine 14 Mg Patch.Td24 TRANSDERMA DAILY [facility] Sodium Chloride 3 ml 11/16/20 08:00 0.9 % Sodium Chloride Flush 3 Ml Syringe IVFLUSH QSHIFT [facility] Thiamine HCl 100 mg 11/16/20 09:00 Thiamine Hcl 100 Mg Tablet PO 11/19/20 08:59 DAILY [facility] Home Medications Medication Instructions Recorded Confirmed Last Taken Type buprenorphine 2 mg-naloxone 0.5 mg 1 film BUCCAL DAILY 11/16/20 11/16/20 11/14/20 History sublingual film (Suboxone) Physical Exam Vital Signs and Narrative: Vital Signs: Last Vital Signs Temp 98.4 F 11/15/20 23:54 Pulse 88 11/16/20 00:50 Resp 16 11/16/20 00:50 BP 146/101 H 11/15/20 23:54 Pulse Ox 94 11/15/20 23:54 Body Mass Index 19.7 Gen: Appears be in no acute distress HEENT: NCAT, Moist mucosa. Pulmonary: Vesicular breath sounds, fair air entry CVS: Normal S1-S2 Abdomen: BS+, Soft, Nontender Extremities: Warm well perfused Neuro: Alert and awake. Results Labs CBC and Chem 7: 11/17/20 05:44 11/17/20 05:44 Labs: Laboratory Results - last 24 hr 11/16/20 11/16/20 11/16/20 00:33 00:33 00:33 MCV 102.2 H MCH 36.4 H MCHC 35.6 H RDW 12.9 Plt Count 211 MPV 10.0 Immature Gran % (Auto) 0.5 H Neut % (Auto) 87.0 H Lymph % (Auto) 2.7 L [place] % (Auto) 9.6 Eos % (Auto) 0.0 Baso % (Auto) 0.2 Lymph # (Auto) 0.3 L [place] # (Auto) 1.0 Eos # (Auto) 0.0 Baso # (Auto) 0.0 Abs Immat Gran (auto) 0.05 H Absolute Neuts (auto) 8.7 H Absolute Nucleated RBC 0.000 Nucleated RBC % (auto) 0.0 Anion Gap 28 H Estim Creat Clear Calc 76.8 Estimated GFR > 60 Random Glucose 96 Calcium 10.2 D Magnesium 1.3 L* Total Bilirubin 2.4 H AST 187 H ALT 69 H Alkaline Phosphatase 133 H D Total Protein 7.6 Albumin 4.7 Lipase 503 H Beta HCG, Quant < 2 Urine Color Urine Appearance Urine pH Ur Specific [place] Urine Protein Urine Glucose (UA) Urine Ketones Urine Blood Urine Nitrite Ur Leukocyte Esterase Urine RBC Urine WBC Ur Squamous Epith Cells Urine Bacteria Urine Mucus Ethyl Alcohol < 10 11/16/20 04:19 MCV MCH MCHC RDW Plt Count MPV Immature Gran % (Auto) Neut % (Auto) Lymph % (Auto) [place] % (Auto) Eos % (Auto) Baso % (Auto) Lymph # (Auto) [place] # (Auto) Eos # (Auto) Baso # (Auto) Abs Immat Gran (auto) Absolute Neuts (auto) Absolute Nucleated RBC Nucleated RBC % (auto) Anion Gap Estim Creat Clear Calc Estimated GFR Random Glucose Calcium Magnesium Total Bilirubin AST ALT Alkaline Phosphatase Total Protein Albumin Lipase Beta HCG, Quant Urine Color YELLOW Urine Appearance HAZY Urine pH 7.5 Ur Specific [place] 1.015 Urine Protein 2+ H Urine Glucose (UA) NEG Urine Ketones 15 Urine Blood 3+ H Urine Nitrite NEG Ur Leukocyte Esterase NEG Urine RBC 0-2 Urine WBC 0-2 Ur Squamous Epith Cells 1+ Urine Bacteria 4+ Urine Mucus TRACE Ethyl Alcohol Imaging Radiologist's Impressions: Impressions Abdomen/Pelvis CT 11/16/20 01:42 IMPRESSION: 1. Mild peripancreatic stranding and fluid, suspicious for pancreatitis. 2. Thick-walled appearance of much of the colon, which could be accentuated by luminal collapse. In the proper clinical setting, a colitis would be difficult to exclude. 3. Hepatic steatosis. Assessment and Plan (1) Pancreatitis: Status: Acute 35-year-old female with a past medical history of alcohol abuse presented to the hospital with a chief complaint of nausea and vomiting; noted to have pancreatitis/colitis/transaminitis. Admitted to the hospital for further management. Back pain: pain located on the bilateral shoulder blades in the back; reproducible. Likely musculoskeletal. Exam nonfocal. Neck is supple. Pancreatitis: In the setting of alcohol use. Pain control. Supportive care. IV fluids. Colitis: Possible viral gastroenteritis. Patient is afebrile. No indication for antibiotics at this time. Will continue to monitor. Transaminitis: Likely in the setting of alcohol use versus hepatitis. Will send acute hepatitis panel. Monitor liver enzymes. Alcohol abuse: Will keep the patient on CO protocol with Ativan. Continue thiamine, folate, multivitamins. Hypomagnesemia: Repleted Elevated anion gap: Ordered lactate levels. Also alcoholic ketoacidosis versus starvation ketosis. Continue IV fluids. Tobacco dependence: Counseled on smoking cessation. Offered nicotine patch. DVT prophylaxis: SCD boots Code status: Full code Quality Stroke Does the patient have a stroke diagnosis?: No VTE Prior VTE?: No VTE Risk Level:: Medical - moderate - high VTE Device Contraindication: N/A - Device Ordered VTE Drug Contraindication: Treatment Not Indicated
--- NOTE | 2020-11-16 05:58 | PC.NURSE ---
This RN contacting Hospitalist via [place] over concern for alcohol withdrawals throughout admission. This RN requesting Pheno protocol. Per Hospitalist, to try Ativan q4h first. Hospitalist aware last drink 22 hours ago.
[2020-11-16] MEDS: Dextrose 5 % and 0.45 % NaCl 1,000 ML 100 ML IVCONT (06:12)
[2020-11-16 06:29] LABS: COVID-19 Test Negative (Negative); IDNOW Serial# 9DD0AD1C
--- NOTE | 2020-11-16 06:30 | PC.NURSE ---
EKG, VS and CIWA obtained by this RN. Covid sent for analysis. Pt resting in bed, aware that she is NPO @ this time. Continue to monitor.
--- NOTE | 2020-11-16 06:39 | PC.NURSE ---
Med Rec completed by this RN. Pharmacy contacting regarding Suboxone, per pt, she cuts each film into quarters, only taking 2 mg daily.
[2020-11-16] MEDS: Lactated Ringers 1,000 ML 150 ML IVCONT ×3 (07:39→21:56)
--- NOTE | 2020-11-16 07:42 | PC.NURSE ---
report taken from LUISANA Rodrigues. Pt awake and alert in bed, awaiting bed assignment. pt is NPO and is aware of this. requesting Zofran at this time for nausea, no vomiting at this time.
[2020-11-16 08:08] LABS: Lactic Acid 1.3 mmol/L (0.5-2.0)
[2020-11-16 08:33] LABS: Alanine Aminotransferase 61 U/L (0-31); Albumin Level 3.6 g/dL (3.5-5.0); Alkaline Phosphatase 106 U/L (39-117); Aspartate Amino Transferase 247 U/L (5-31); Bilirubin Direct 1.3 mg/dL (0.0-0.5); Bilirubin Total 2.3 mg/dL (0.0-1.0); Total Protein 5.6 g/dL (6.5-8.0)
[2020-11-16] MEDS: HYDROmorphone HCl 0.5 MG/0.5 ML SYRINGE SUBCUT ×2 (09:37→15:20)
[2020-11-16] MEDS: LORazepam 1 MG TABLET PO ×2 (09:37→13:37)
[2020-11-16] MEDS: Nicotine 14 MG PATCH.TD24 TRANSDERMA (09:37)
[2020-11-16] MEDS: ALPRAZolam 0.5 MG TABLET PO (15:20)
[2020-11-16] MEDS: 0.9 % Sodium Chloride Flush 3 ML SYRINGE IVFLUSH ×2 (15:24→23:49)
--- NOTE | 2020-11-16 16:56 | PC.NURSE ---
pt Pulse 133, BP 140/114 she is tremulous and anxious - reached out to Dr. Lopez for possible phenobarbital via TC he agreed to start med. will administer when in pyxis.
[2020-11-16] MEDS: PHENobarbitaL sodium 130 MG/ML VIAL 209 MG IM (17:26)
--- NOTE | 2020-11-16 18:51 | PC.NURSE ---
pt has unplugged herself from her fluids, cardiac monitoring and BP cuff, she wandered to another pts room. she is confused, paranoid and anxious. pt reports not knowing anyone here and feeling scared pt also was looking for her bag which was sitting on the bed with her. she reported to needed to leave, and was going to drive home . pt proceeded to strip off her moses and put on her street clothes. LUISANA Merino called pts BF and spoke with him about talking with the pt. he called the pt and reassured her. pt is now getting changed back into a moses. she is confused, slightly unstable on her feet. reports feeling very anxious and paranoid. will contact MD and update.
--- NOTE | 2020-11-16 19:16 | MHC.CM.PN ---
CM met with admitted pt pending bed assignment. Pt with hx suboxone for opiates-clean x 4 years per pt. and hx etoh misuse. Pt agreeable to speaking with recovery support. Pt interested in MAT for ETOH. Feels she needs to stop. Pt lives with S.O Charlie Lewis. HCP reviewed, completed and signed per protocol. HCP/SO Charlie Lewis ([phone]). D/C plan is home per patient. Transportation by family. CM to follow for d/c needs.
--- NOTE | 2020-11-16 19:32 | PC.NURSE ---
nurse to nurse report given to Wendy LIBEERMAN
[2020-11-16] MEDS: PHENobarbitaL sodium 130 MG/ML VIAL 156 MG IM ×2 (19:51→23:47)
--- NOTE | 2020-11-16 19:55 | PC.NURSE ---
pt attempting to get out of bed, taking senior grant writer off and stating she needs to leave. pt hr was sinus tach at 160 when getting out of bed and was on the phone with family/significant other stating that she was in a haunted house. hospitalist informed of pt heart rate and pt having hallucinations. per hospitalist, ok to give scheduled 20:30 dose of phenobarbital at this time. this nurse gave scheduled 20:30 dose of phenobarbital at this time 19:55.
--- NOTE | 2020-11-16 20:19 | PC.NURSE ---
Hospitalist notified of elevated CIWA. Plan for IV Ativan.
[2020-11-16] MEDS: Melatonin 3 MG TABLET 6 MG PO (21:50)
[2020-11-17] VITALS: BP 148/106; PULSE 110; RESP 18; TEMP 36.6; O2SAT 100
[2020-11-17 04:00] VITALS: BP 140/101; PULSE 81; RESP 18; TEMP 36.6; O2SAT 97
[2020-11-17] MEDS: Lactated Ringers 1,000 ML 150 ML IVCONT ×2 (04:04→10:37)
[2020-11-17] MEDS: LORazepam 2 MG/ML VIAL 1 MG IVPUSH (04:38)
[2020-11-17 06:20] LABS: MANUAL DIFF FLAG NO
[2020-11-17 06:28] LABS: Basophils Percent Auto 0.6 % (0-2); Eosinophils Absolute Auto 0.1 X10*3/uL (0.0-0.4); Hemoglobin 12.6 g/dl (12.0-16.0); Imm Gran Abs Auto 0.01 X10*3/uL (0.00-0.03); Imm Gran Pct Auto 0.2 % (0.0-0.4); Lymphocytes Absolute Auto 1.3 X10*3/uL (1.2-4.9); Lymphocytes Percent Auto 27.1 % (20-40); Mean Corpuscular Hemoglobin 35.7 pg (27.0-33.0); Mean Platelet Volume 10.4 fL (9.4-12.3); Monocytes Absolute Auto 0.5 X10*3/uL (0.1-1.2); Monocytes Percent Auto 9.6 % (2-11); Neutrophils Percent Auto 60.5 % (45-73); Platelet Count 127 X10*3/uL (160-400); Red Blood Count 3.53 X10*6/uL (4.20-5.50); Red Cell Distribution Width 12.4 % (11.0-16.0); White Blood Count 4.9 X10*3/uL (4.8-10.8)
[2020-11-17 07:30] LABS: Alanine Aminotransferase 44 U/L (0-31); Albumin Level 3.4 g/dL (3.5-5.0); Alkaline Phosphatase 97 U/L (39-117); Anion Gap 14 (12-20); Aspartate Amino Transferase 133 U/L (5-31); Bilirubin Direct 0.8 mg/dL (0.0-0.5); Bilirubin Total 1.6 mg/dL (0.0-1.0); Blood Urea Nitrogen 3 mg/dL (9-16); Carbon Dioxide 27 mmol/L (22-29); Chloride 99 mmol/L (96-108); Creatinine Clr Calc Pharmacy 111.5; Estimated Glomerular Filt Rate > 60; Glucose Fasting 73 mg/dL (60-99); Magnesium 1.6 mg/dL (1.6-2.6); Potassium 3.3 mmol/L (3.3-5.1); Sodium 137 mmol/L (135-145); Total Protein 5.4 g/dL (6.5-8.0)
[2020-11-17 07:47] LABS: Calcium 8.5 mg/dL (8.4-10.2)
[2020-11-17 08:00] VITALS: BP 145/100; PULSE 98; RESP 20; TEMP 36.9; O2SAT 98
[2020-11-17 08:52] LABS: HBS Num1 128.51 mIU/mL (0-7.99); Hepatitis A Antibody IgM 0.18 Index (0-0.79); ~HepC Num1 0.12 S/CO (0.00-0.79); ~Hepatitis A Antibody IgM Nonreactive (Nonreactive); ~Hepatitis B Surface Antibody REACTIVE (Nonreactive); ~Hepatitis C Antibody Nonreactive (Nonreactive)
[2020-11-17 08:55] LABS: HBc Num1 0.06 S/CO (0.00-0.79); HBsAGNum1 0.14 S/CO (0.00-0.99); Hepatitis B Core Antibody Nonreactive (Nonreactive); Hepatitis B Surface Antigen Negative (Negative)
[2020-11-17] MEDS: PHENobarbitaL 15 MG TABLET 45 MG PO (10:35)
[2020-11-17] MEDS: Magnesium Oxide 400 MG TABLET PO (10:36)
[2020-11-17] MEDS: Folic Acid 1 MG TABLET PO (10:36)
[2020-11-17] MEDS: 0.9 % Sodium Chloride Flush 3 ML SYRINGE IVFLUSH (10:36)
[2020-11-17] MEDS: Thiamine HCL 100 MG TABLET PO (10:36)
[2020-11-17] MEDS: Buprenorphine/Naloxone 2/0.5mg FILM 1 FILM SUBLINGUAL (10:36)
[2020-11-17] MEDS: Famotidine/PF 20 MG/2 ML VIAL IVPUSH (10:37)
[2020-11-17] MEDS: Nicotine 14 MG PATCH.TD24 TRANSDERMA (10:37)
--- NOTE | 2020-11-17 10:45 | MHC.RECOVRN ---
T/w met with pt in 474 to discuss substance use. Pt reports drinking alcohol, 1-6 drinks daily x 3 months. Pt denies other substances. Pt reports being prescribed Suboxone x 1.5 years for OUD. Pt reports using prescription pills prior to Suboxone. Pt reports having supportive friends/family and declines referrals for outside resources/support. Pt educated regarding medication for AUD. Pt interested in acamprosate. Pt disinterested in continuing conversation with t/w regarding substance use. Case discussed with Yokasta Adam APRN.
--- NOTE | 2020-11-17 11:00 | HO.PM.IMPN ---
Subjective Subjective Date of Service: 11/17/20 Interval History: abd pain improved Cardiovascular Cardiovascular: Reports no additional cardiovascular complaints Genitourinary Genitourinary: Reports no additional female genitourinary complaints Physical Exam Vital Signs: Vital Signs: Last Vital Signs Temp 98.5 F 11/17/20 08:00 Pulse 98 11/17/20 08:00 Resp 20 11/17/20 08:00 BP 145/100 H 11/17/20 08:00 Pulse Ox 98 11/17/20 08:00 Body Mass Index 20.5 General: AO X 3, anxious Resp: CTA bilateral CVS: S1,S2,RRR GI: soft, non tender, non distended Neuro: motor grossly intact Psych: appropriate affect Objective Data Current Medications Generic Name Dose Route Start Last Admin Trade Name Freq PRN Reason Stop Dose Admin Buprenorphine/Naloxone 1 film 11/17/20 09:00 11/17/20 10:36 Buprenorphine/Naloxone 2/0.5mg Film SUBLINGUAL 1 film DAILY NESS Administration Famotidine 20 mg 11/16/20 09:00 11/17/20 10:37 Famotidine/Pf 20 Mg/2 Ml Vial IVPUSH 20 mg BID NESS Administration Folic Acid 1 mg 11/16/20 09:00 11/17/20 10:36 Folic Acid 1 Mg Tablet PO 11/19/20 08:59 1 mg DAILY NESS Administration Hydromorphone HCl 0.5 mg 11/16/20 05:38 11/16/20 15:20 Hydromorphone Hcl 0.5 Mg/0.5 Ml Syringe SUBCUT 0.5 mg Q4H PRN Administration Pain, Severe (Pain Scale 7-10) Lactated Ringer's 1,000 mls @ 150 mls/hr 11/16/20 07:30 11/17/20 10:37 Lr IVCONT 150 mls/hr .Q6H40M NESS Administration Magnesium Oxide 400 mg 11/17/20 08:30 11/17/20 10:36 Magnesium Oxide 400 Mg Tablet PO 400 mg BIDPC NESS Administration Medication 1 each 11/16/20 17:15 No Benzodiazepines MISCELLANE DAILY NESS Melatonin 6 mg 11/16/20 05:38 11/16/20 21:50 Melatonin 3 Mg Tablet PO 6 mg BEDTIME PRN Administration Insomnia Multivitamins 1 tab 11/16/20 09:00 11/17/20 10:36 B-Complex With Vitamin C Tablet PO 1 tab DAILY NESS Administration Nicotine 14 mg 11/16/20 09:00 11/17/20 10:37 Nicotine 14 Mg Patch.Td24 TRANSDERMA 14 mg DAILY NESS Administration Ondansetron HCl 4 mg 11/16/20 06:07 11/16/20 07:10 Ondansetron Hcl 4 Mg/2 Ml Vial IVPUSH 4 mg Q8H PRN Administration Nausea and Vomiting Phenobarbital 45 mg 11/17/20 09:00 11/17/20 10:35 Phenobarbital 15 Mg Tablet PO 11/18/20 21:01 45 mg BID NESS Administration Protocol Phenobarbital 30 mg 11/19/20 09:00 Phenobarbital 30 Mg Tablet PO 11/20/20 21:01 BID NESS Protocol Phenobarbital 30 mg 11/21/20 09:00 Phenobarbital 30 Mg Tablet PO 11/22/20 09:01 DAILY NESS Protocol Sodium Chloride 3 ml 11/16/20 08:00 11/17/20 10:36 0.9 % Sodium Chloride Flush 3 Ml Syringe IVFLUSH 3 ml QSHIFT NESS Administration Thiamine HCl 100 mg 11/16/20 09:00 11/17/20 10:36 Thiamine Hcl 100 Mg Tablet PO 11/19/20 08:59 100 mg DAILY NESS Administration Labs CBC & Chem 7: 11/17/20 05:44 11/17/20 05:44 Labs: Laboratory Results - last 24 hr 11/16/20 11/17/20 11/17/20 07:46 05:44 05:44 WBC 4.9 RBC 3.53 L Hgb 12.6 Hct 36.0 L MCV 102.0 H MCH 35.7 H MCHC 35.0 RDW 12.4 Plt Count 127 L D MPV 10.4 Immature Gran % (Auto) 0.2 Neut % (Auto) 60.5 Lymph % (Auto) 27.1 [place] % (Auto) 9.6 Eos % (Auto) 2.0 Baso % (Auto) 0.6 Lymph # (Auto) 1.3 [place] # (Auto) 0.5 Eos # (Auto) 0.1 Baso # (Auto) 0.0 Abs Immat Gran (auto) 0.01 Absolute Neuts (auto) 3.0 Absolute Nucleated RBC 0.000 Nucleated RBC % (auto) 0.0 Sodium 137 Potassium 3.3 Chloride 99 Carbon Dioxide 27 Anion Gap 14 BUN 3 L D Creatinine 0.61 Estim Creat Clear Calc 111.5 Estimated GFR > 60 Fasting Glucose 73 Calcium 8.5 D Magnesium 1.6 Total Bilirubin 1.6 H Direct Bilirubin 0.8 H AST 133 H ALT 44 H Alkaline Phosphatase 97 Total Protein 5.4 L Albumin 3.4 L Hepatitis A IgM Ab Nonreactive Hep Bs Antigen Negative Hep Bs Antibody REACTIVE Hep B Core Total Ab Nonreactive Hepatitis C Ab (EIA) Nonreactive Quality Stroke Does the patient have a stroke diagnosis?: No VTE Prior VTE?: No VTE Risk Level:: Medical - moderate - high VTE Device Contraindication: N/A - Device Ordered VTE Drug Contraindication: Treatment Not Indicated Assessment and Plan (1) Hypomagnesemia: Status: Acute Assessment and Plan: 35F presented with epigastric abdominal pain acute alcoholic pancreatitis now tolerating solids, will dc IVF alcohol dependence with withdrawl phenobarb CIWA alcoholic hepatitis mild, monitor lfts encourage absitance and nutrition opioid dependence suboxone
--- NOTE | 2020-11-17 11:32 | PM.DS ---
DS: Providers Provider Date of Service: 11/17/20 Date of admission: 11/16/20 05:38 Primary care physician: Nenita Howell MD Consults: 11/16/20 20:18 Addiction Medicine Routine Consulting Provider: Yokasta Adam Reason for consultation: opioid dependence DS: Diagnosis Discharge Diagnosis (1) Hypomagnesemia: Status: Acute DS: Medications Discharge Medications Home Medications: Home Medications Medication Instructions Recorded Confirmed buprenorphine-naloxone [Suboxone] 1 film BUCCAL DAILY 11/16/20 11/16/20 DS: Summary Hospital Course Hospital Course: patient was admitted for alcoholic pancreatitis complicated by alcohol dependence with withdrawal, alcohlic hepatitis, hypomagnesemia. she was given pheonbarbital and IVF. her abdominal pain resolved and was able to tolerate solid diet. magnesium was partially replaced, now 1.6, CIWA improved from 18, but still with some symptoms. patient, however, does not want to stay for continued treatment of withdrawal, she would like to leave against medical advice. she is aware of risks including . Time Spent with Patient Time attestation: Total time spent providing and/or coordinating discharge services: Discharge coordination time: Greater than 30 minutes Quality: Stroke Does the patient have a stroke diagnosis?: No Physical Exam Vital Signs: Vital Signs: Last Vital Signs Temp 98.5 F 11/17/20 08:00 Pulse 98 11/17/20 08:00 Resp 20 11/17/20 08:00 BP 145/100 H 11/17/20 08:00 Pulse Ox 98 11/17/20 08:00 Body Mass Index 20.5 General: AO X 3, anxious Resp: CTA bilateral CVS: S1,S2,RRR GI: soft, non tender, non distended Neuro: motor grossly intact Psych: appropriate affect, insight intact DS: Data Data Completed and Pending Labs on day of discharge: Laboratory Results - last 24 hr 11/16/20 11/17/20 11/17/20 07:46 05:44 05:44 WBC 4.9 RBC 3.53 L Hgb 12.6 Hct 36.0 L MCV 102.0 H MCH 35.7 H MCHC 35.0 RDW 12.4 Plt Count 127 L D MPV 10.4 Immature Gran % (Auto) 0.2 Neut % (Auto) 60.5 Lymph % (Auto) 27.1 [place] % (Auto) 9.6 Eos % (Auto) 2.0 Baso % (Auto) 0.6 Lymph # (Auto) 1.3 [place] # (Auto) 0.5 Eos # (Auto) 0.1 Baso # (Auto) 0.0 Abs Immat Gran (auto) 0.01 Absolute Neuts (auto) 3.0 Absolute Nucleated RBC 0.000 Nucleated RBC % (auto) 0.0 Sodium 137 Potassium 3.3 Chloride 99 Carbon Dioxide 27 Anion Gap 14 BUN 3 L D Creatinine 0.61 Estim Creat Clear Calc 111.5 Estimated GFR > 60 Fasting Glucose 73 Calcium 8.5 D Magnesium 1.6 Total Bilirubin 1.6 H Direct Bilirubin 0.8 H AST 133 H ALT 44 H Alkaline Phosphatase 97 Total Protein 5.4 L Albumin 3.4 L Hepatitis A IgM Ab Nonreactive Hep Bs Antigen Negative Hep Bs Antibody REACTIVE Hep B Core Total Ab Nonreactive Hepatitis C Ab (EIA) Nonreactive Discharge Plan Discharge Patient Disposition: Left Against Medical Advice Discharge Diagnosis: pnacreatitis, etoh withdrawl Referrals: Nenita Howell MD [Primary Care Provider] - 1 Week Discharge Medications: No Action buprenorphine-naloxone [Suboxone] 2-0.5 mg Film 1 film BUCCAL DAILY RF: 0 Discharge Orders: Discharge Order (Routine); Ordered 11/17/20 Ordered By: Byron Lopez Care Plan Goals: recovery Health Concerns: etoh withdrawal, low magnesium Plan of Treatment: cannot be treated properly outpatient, return to ED if symptoms worsened Assessment: see above Discharge Date/Time: 11/17/20 11:50
--- NOTE | 2020-11-17 11:59 | PC.NURSE ---
Pt signed out AMA at 1150, IV x2 removed, auto service dispatcher removed.
== END 2020-11-17 11:50 | disposition left against medical advice (07) | DRG 282 ==
LOC: HO.ED 11-16 05:54 → HO.EDOVER 11-16 07:43 → HO.IMC 11-16 18:48
PROVIDERS: Admitting Provider Hospitalist; Emergency Provider Internal Medicine; PCP Family Medicine; Visit Provider Internal Medicine
DX: K85.20 Alcohol induced acute pancreatitis without necrosis or infection (principal); E83.42 Hypomagnesemia; F10.239 Alcohol dependence with withdrawal, unspecified; F11.20 Opioid dependence, uncomplicated; F17.210 Nicotine dependence, cigarettes, uncomplicated; Z20.822 Contact with and (suspected) exposure to COVID-19; Z88.0 Allergy status to penicillin
CPT/HCPCS: 36415; 74177; 80048; 80053; 80076; 81001; 82077; 83605; 83690; 83735; 84702; 85025; 86704; 86706; 86709; 86803; 87086; 87340; 87635; 93005; 99285; J1170; J2060; J2270; J2405; J2560; J3475; Q9967

== ENCOUNTER 2021-12-17 14:00 | Inpatient (IN) | payer OTHER, SELFPAY ==
--- NOTE | ~2021-12-17 | CT_ITS ---
EXAMINATION: CT ABDOMEN AND PELVIS WITH CONTRAST CLINICAL INFORMATION: Vomiting with abdominal back pain. History of alcohol-induced pancreatitis. COMPARISON: CT abdomen pelvis 11/16/2020 TECHNIQUE: Multidetector volumetric images were obtained from the superior aspect of the liver through the pubic symphysis following administration 85 mL of Omnipaque 350 intravenous contrast. Sagittal and coronal reformatted images were obtained on the technologist's workstation. Oral contrast: No This CT examination was performed using dose optimization techniques as appropriate, variously including the following: *Automated exposure control *Adjustment of mA and/or kV according to patient size (this includes techniques or standardized protocols for targeted exams where dose is matched to indication/reason for exam; i.e. extremities or head) *Use of iterative reconstruction technique DLP: 269 mGy-cm FINDINGS: LUNG BASES: The visualized lung bases are unremarkable. LIVER, GALLBLADDER, AND BILIARY TREE: Liver is mildly enlarged measuring 17.6 cm in craniocaudal length. Diffuse hepatic hypoattenuation compatible with steatosis. Mild fatty sparing in the medial segment left liver lobe adjacent to the gallbladder. No liver lesion. Hepatic and portal veins are patent. No biliary ductal dilation. The gallbladder is unremarkable with no evidence of radiopaque gallstones, gallbladder wall thickening, or obvious pericholecystic inflammatory changes. PANCREAS: Unremarkable. SPLEEN: Unremarkable. ADRENAL GLANDS: Unremarkable. KIDNEYS AND URETERS: The kidneys are normal in size, shape, and attenuation. No hydronephrosis, hydroureter, or calculi seen. No perinephric stranding. BLADDER: Unremarkable. GASTROINTESTINAL TRACT: No dilated bowel loops. Slightly thick-walled appearance of the colon is favored due to incomplete distention. No appreciable pericolonic inflammatory change. Appendix is not the discretely visualized. No inflammatory changes the cecal base. No ascites or free air. ABDOMINAL WALL: No significant hernia is appreciated. Umbilical piercing noted. LYMPH NODES: No lymphadenopathy. VASCULAR: Normal caliber abdominal aorta. PELVIC VISCERA: 1.9 x 1.5 cm low-density collection in the right aspect of the vagina above the level of the pubic symphysis is unchanged, likely a Luis Alberto duct cyst on series 376-. 2.2 cm low-density suspected dominant follicle in the right ovary. Gynecologic structures otherwise unremarkable. No free pelvic fluid. OSSEOUS STRUCTURES: Chronic/healed right posterior ninth rib fracture deformity. No acute fracture or suspicious osseous lesion. Intervertebral disc heights in the visualized lower thoracic and lumbar spine are maintained. CT/CT abdomen pelvis w con IMPRESSION: 1. Mild hepatomegaly and prominent hepatic steatosis. 2. No evidence of acute pancreatitis other acute intra-abdominal process. 3. Slightly thick-walled appearance of the colon favored due to incomplete distention.
[2021-12-17 14:03] VITALS: BP 174/101; PULSE 117; RESP 19; TEMP 36.1; O2SAT 98; BMI 19.2
[2021-12-17] MEDS: Ondansetron ODT 4 MG TAB.RAPDIS TRANSLINGU (14:08)
[2021-12-17 14:23] LABS: MANUAL DIFF FLAG NO
[2021-12-17 14:25] LABS: Basophils Percent Auto 0.5 % (0-2); Eosinophils Percent Auto 0.1 % (0-4); Hematocrit 46.6 % (37.0-47.0); Hemoglobin 16.7 g/dl (12.0-16.0); Imm Gran Abs Auto 0.03 X10*3/uL (0.00-0.03); Imm Gran Pct Auto 0.4 % (0.0-0.4); Lymphocytes Absolute Auto 0.4 X10*3/uL (1.2-4.9); Lymphocytes Percent Auto 4.9 % (20-40); Mean Corpuscular HGB Conc 35.8 g/dl (31.0-35.0); Mean Corpuscular Hemoglobin 35.8 pg (27.0-33.0); Mean Corpuscular Volume 99.8 fL (80.0-98.0); Mean Platelet Volume 9.3 fL (9.4-12.3); Monocytes Absolute Auto 0.4 X10*3/uL (0.1-1.2); Monocytes Percent Auto 4.9 % (2-11); Neutrophils Absolute Auto 7.5 x10*3/uL (2.0-8.3); Neutrophils Percent Auto 89.2 % (45-73); Platelet Count 176 X10*3/uL (160-400); Red Blood Count 4.67 X10*6/uL (4.20-5.50); Red Cell Distribution Width 13.3 % (11.0-16.0); White Blood Count 8.4 X10*3/uL (4.8-10.8)
[2021-12-17 14:44] LABS: Alanine Aminotransferase 51 U/L (0-31); Albumin Level 5.4 g/dL (3.5-5.0); Alkaline Phosphatase 115 U/L (39-117); Anion Gap 24 (12-20); Aspartate Amino Transferase 139 U/L (5-31); Bilirubin Direct 0.8 mg/dL (0.0-0.5); Bilirubin Total 1.6 mg/dL (0.0-1.0); Blood Urea Nitrogen 7 mg/dL (9-16); Calcium 10.7 mg/dL (8.4-10.2); Carbon Dioxide 32 mmol/L (22-29); Chloride 92 mmol/L (96-108); Creatinine Clr Calc Pharmacy 79.6; Estimated Glomerular Filt Rate > 60; Glucose Random 114 mg/dL (60-115); Lipase 148 U/L (8-78); Potassium 4.3 mmol/L (3.3-5.1); Sodium 144 mmol/L (135-145); Total Protein 8.6 g/dL (6.5-8.0)
[2021-12-17 14:50] LABS: HCG Quantitative < 2 mIU/mL
--- NOTE | 2021-12-17 16:12 | ED.NAVMDI ---
HPI - Nausea/Vomiting/Diarrhea General Chief complaint: Abdominal Pain Stated complaint: Vomiting Time Seen by Provider: 12/17/21 16:03 Source: patient Mode of arrival: ambulatory Limitations: no limitations History of Present Illness HPI Narrative: 36 yo female with history of alcohol abuse and dependence, history of alcoholic pancreatitis, opioid dependence on suboxone who presents to the ER from home for evaluation of severe nausea, persistent vomiting, and back pain that started this morning after drinking heavily yesterday. She reports she feels very hungover. She drank at least 8 nips of vodka yesterday. She has been drinking heavily and daily for the last 1 month. She has a history of ETOH withdrawal one year ago requiring admission, she left AMA. She also reports new onset middle back pain that started today after she vomited a few times. It is constant and located between her shoulder blades. She has some generalized abdominal discomfort but main complaint is severe nausea. She wants to be sober. She did not take Suboxone today because of her vomiting. Denies illicit drug use. MD elicited complaint: nausea and vomiting Pertinent past history: alcohol abuse and pacreatitis Onset (ago): hour(s) Description of vomiting: bilious Associated nausea: Yes Associated abdominal pain: Yes Location of pain: diffuse Radiation: other (back) Pain consistency: constant Severity: moderate Quality: aching Exacerbating factors: eating Relieving factors: none Context: alcohol abuse Associated symptoms: diaphoresis, headaches, loss of appetite, malaise, nausea/vomiting, weakness, anxiety, fatigue and palpitation Related Data Home Medications Medication Instructions Recorded Confirmed buprenorphine 8 mg-naloxone 2 mg 1 strip sublingual DAILY 12/17/21 12/17/21 sublingual film (Suboxone) Allergies Allergy/AdvReac Type Severity Reaction Status Date / Time Penicillins [PENICILLINS] Allergy Intermediate HIVES Verified 11/15/20 23:58 Review of Systems Review of Systems: Constitutional: No Fever, No Chills ENT/Mouth: No sore throat, No Rhinorrhea, No Swallowing Difficulty Eyes: No Eye Pain, No Swelling, No Redness Cardiovascular: No Chest Pain, No SOB, No Orthopnea, No Edema, +Palpitations Respiratory: No Cough, No Sputum, No Wheezing, No dyspnea Gastrointestinal: + Nausea, + Vomiting, No Diarrhea, +abdominal Pain, No Hematochezia, No Melena Genitourinary: No Dysuria, No Urinary Frequency, No Hematuria Musculoskeletal: No joint pain, No Myalgias Skin: No Skin Lesions, No rash Neuro: + Weakness, No Numbness, No Dizziness, No Headache Psych:+Anxiety/Panic, + Depression Heme/Lymph: No Bruising, No Lymphadenopathy Endocrine: No Polyuria, No Polydipsia Gastrointestinal: Gastrointestinal: Reports nausea PMFSH Past Medical History Medical History No known health problems Social History Social History Alcohol intake: current Alcohol intake frequency: 3 or more drinks per day Alcohol type: hard liquor Patient Tobacco Use Status: Current everyday Tobacco user Advance Directives: Yes Advance Directives on File: Yes Advance Directives Date on File: 11/16/20 service: No Current occupational status: unemployed Physical Exam Vital Signs: Vital Signs: Last Vital Signs Temp 97.8 F 12/17/21 18:50 Pulse 94 12/17/21 18:50 Resp 16 12/17/21 18:50 BP 162/105 H 12/17/21 18:50 Pulse Ox 98 12/17/21 18:50 O2 Del Method 12/17/21 18:50 BMI result Body Mass Index 19.2 Appearance: Alert. Oriented X3. Appears unwell, holding emesis bag, tremulous Eyes: Pupils equal, round and reactive to light. ENT: Pharynx with dry mucus membranes. Neck: Normal inspection. Neck supple. CVS: Normal heart rate and rhythm. Pulses normal. Respiratory: No respiratory distress. Breath sounds normal. Abdomen: Thin, flat, soft, moderate tenderness with guarding throughtout, decreased+BS x4 Skin: Skin warm and dry. Normal skin color. Normal skin turgor. No rashes. Extremities: No lower extremity edema. Neuro: Oriented X 3. No motor deficit. No sensory deficit. Tremulous, anxious Course Course Course Narrative: 36 yo female with history of alcohol abuse/dependence, hx alcoholic pancreatitis and opioid dependence on suboxone who presents to the ER with acute onset of N/V, generalized abdominal pain, back pain that started today when she woke up after a month of heavy drinking. Tachycardic and hypertensive on arrival, vomiting bilious material. Basic labs in triage showing dehydration and hemoconcentration. She is hypercalcemic with an elevated anion gap, most likely starvation ketosis and dehydration. LFTs elevated consistent with alcoholic hepatitis. Lipase also mildly elevated. 2 L IVF, zofran, versed ordered along with ETOH level, coags, lactic acid, drug utox. CT scan abd pending as well. Will monitor CIWA scores, concern she will require inpatient admission for acute withdrawal. Will monitor closely and reassess. Reevaluation(s) Reevaluation #1: Lactic acid return critically high at 5.2. This is not due to sepsis. This is most likely due to starvation ketosis, vomiting. She is getting 2 L of IV fluids now then will plan to start maintenance fluids. No role for antibiotics as patient is not septic at this time. CT scan without evidence of pancreatitis. C/o severe back pain, no improvement with toradol. will give small dose of IV morphine and see how she does, she last took suboxone yesterday morning. CIWA score is 18. Ordered for Versed and phenobarb protocol. Will plan for admission. Reevaluation #2: lactic acid improved to 3.2 with IVF. will continue D5LR @ 125 cc/hr for now given her degree of dehydration and ongoing nausea. Hospitalist TT for admission. MDM - Nausea/Vomiting/Diarrhea Medical Records Attestation: I reviewed the patient's medical records. Lab Data Attestation: I reviewed the patient's lab results. Result diagrams: 12/17/21 14:18 12/17/21 14:18 Labs: Lab Results 12/17/21 12/17/21 12/17/21 Range/Units 14:18 14:18 14:18 WBC 8.4 (4.8-10.8) X10*3/uL RBC 4.67 (4.20-5.50) X10*6/uL Hgb 16.7 H (12.0-16.0) g/dl Hct 46.6 (37.0-47.0) % MCV 99.8 H (80.0-98.0) fL MCH 35.8 H (27.0-33.0) pg MCHC 35.8 H (31.0-35.0) g/dl RDW 13.3 (11.0-16.0) % Plt Count 176 (160-400) X10*3/uL MPV 9.3 L (9.4-12.3) fL Immature Gran % (Auto) 0.4 (0.0-0.4) % Neut % (Auto) 89.2 H (45-73) % Lymph % (Auto) 4.9 L (20-40) % [place] % (Auto) 4.9 (2-11) % Eos % (Auto) 0.1 (0-4) % Baso % (Auto) 0.5 (0-2) % Lymph # (Auto) 0.4 L (1.2-4.9) X10*3/uL [place] # (Auto) 0.4 (0.1-1.2) X10*3/uL Eos # (Auto) 0.0 (0.0-0.4) X10*3/uL Baso # (Auto) 0.0 (0.0-0.2) X10*3/uL Abs Immat Gran (auto) 0.03 (0.00-0.03) X10*3/uL Absolute Neuts (auto) 7.5 (2.0-8.3) x10*3/uL Absolute Nucleated RBC 0.000 (0.0-0.012) X10*3/uL Nucleated RBC % (auto) 0.0 (0.0-0.2) /100WBC PT (10.0-13.1) SEC INR (0.9-1.1) APTT (26.0-36.4) SEC Sodium 144 (135-145) mmol/L Potassium 4.3 D (3.3-5.1) mmol/L Chloride 92 L (96-108) mmol/L Carbon Dioxide 32 H (22-29) mmol/L Anion Gap 24 H (12-20) BUN 7 L (9-16) mg/dL Creatinine 0.79 (0.5-1.4) mg/dL Estim Creat Clear Calc 79.6 Estimated GFR > 60 Random Glucose 114 (60-115) mg/dL Lactic Acid (0.5-2.0) mmol/L Lactic Acid F/U @ 2Hr (0.5-2.0) mmol/L Calcium 10.7 H D (8.4-10.2) mg/dL Phosphorus 3.2 (2.7-4.5) mg/dL Magnesium 1.5 L (1.6-2.6) mg/dL Total Bilirubin 1.6 H (0.0-1.0) mg/dL Direct Bilirubin 0.8 H (0.0-0.5) mg/dL AST 139 H (5-31) U/L ALT 51 H (0-31) U/L Alkaline Phosphatase 115 (39-117) U/L Total Protein 8.6 H D (6.5-8.0) g/dL Albumin 5.4 H D (3.5-5.0) g/dL Lipase 148 H (8-78) U/L Beta HCG, Quant < 2 mIU/mL Ethyl Alcohol mg/dL 12/17/21 12/17/21 12/17/21 Range/Units 16:14 16:14 16:14 WBC (4.8-10.8) X10*3/uL RBC (4.20-5.50) X10*6/uL Hgb (12.0-16.0) g/dl Hct (37.0-47.0) % MCV (80.0-98.0) fL MCH (27.0-33.0) pg MCHC (31.0-35.0) g/dl RDW (11.0-16.0) % Plt Count (160-400) X10*3/uL MPV (9.4-12.3) fL Immature Gran % (Auto) (0.0-0.4) % Neut % (Auto) (45-73) % Lymph % (Auto) (20-40) % [place] % (Auto) (2-11) % Eos % (Auto) (0-4) % Baso % (Auto) (0-2) % Lymph # (Auto) (1.2-4.9) X10*3/uL [place] # (Auto) (0.1-1.2) X10*3/uL Eos # (Auto) (0.0-0.4) X10*3/uL Baso # (Auto) (0.0-0.2) X10*3/uL Abs Immat Gran (auto) (0.00-0.03) X10*3/uL Absolute Neuts (auto) (2.0-8.3) x10*3/uL Absolute Nucleated RBC (0.0-0.012) X10*3/uL Nucleated RBC % (auto) (0.0-0.2) /100WBC PT 12.3 (10.0-13.1) SEC INR 1.1 (0.9-1.1) APTT 29.9 (26.0-36.4) SEC Sodium (135-145) mmol/L Potassium (3.3-5.1) mmol/L Chloride (96-108) mmol/L Carbon Dioxide (22-29) mmol/L Anion Gap (12-20) BUN (9-16) mg/dL Creatinine (0.5-1.4) mg/dL Estim Creat Clear Calc Estimated GFR Random Glucose (60-115) mg/dL Lactic Acid 5.2 H* (0.5-2.0) mmol/L Lactic Acid F/U @ 2Hr (0.5-2.0) mmol/L Calcium (8.4-10.2) mg/dL Phosphorus (2.7-4.5) mg/dL Magnesium (1.6-2.6) mg/dL Total Bilirubin (0.0-1.0) mg/dL Direct Bilirubin (0.0-0.5) mg/dL AST (5-31) U/L ALT (0-31) U/L Alkaline Phosphatase (39-117) U/L Total Protein (6.5-8.0) g/dL Albumin (3.5-5.0) g/dL Lipase (8-78) U/L Beta HCG, Quant mIU/mL Ethyl Alcohol 26 mg/dL 12/17/21 Range/Units 18:48 WBC (4.8-10.8) X10*3/uL RBC (4.20-5.50) X10*6/uL Hgb (12.0-16.0) g/dl Hct (37.0-47.0) % MCV (80.0-98.0) fL MCH (27.0-33.0) pg MCHC (31.0-35.0) g/dl RDW (11.0-16.0) % Plt Count (160-400) X10*3/uL MPV (9.4-12.3) fL Immature Gran % (Auto) (0.0-0.4) % Neut % (Auto) (45-73) % Lymph % (Auto) (20-40) % [place] % (Auto) (2-11) % Eos % (Auto) (0-4) % Baso % (Auto) (0-2) % Lymph # (Auto) (1.2-4.9) X10*3/uL [place] # (Auto) (0.1-1.2) X10*3/uL Eos # (Auto) (0.0-0.4) X10*3/uL Baso # (Auto) (0.0-0.2) X10*3/uL Abs Immat Gran (auto) (0.00-0.03) X10*3/uL Absolute Neuts (auto) (2.0-8.3) x10*3/uL Absolute Nucleated RBC (0.0-0.012) X10*3/uL Nucleated RBC % (auto) (0.0-0.2) /100WBC PT (10.0-13.1) SEC INR (0.9-1.1) APTT (26.0-36.4) SEC Sodium (135-145) mmol/L Potassium (3.3-5.1) mmol/L Chloride (96-108) mmol/L Carbon Dioxide (22-29) mmol/L Anion Gap (12-20) BUN (9-16) mg/dL Creatinine (0.5-1.4) mg/dL Estim Creat Clear Calc Estimated GFR Random Glucose (60-115) mg/dL Lactic Acid (0.5-2.0) mmol/L Lactic Acid F/U @ 2Hr 3.2 H* (0.5-2.0) mmol/L Calcium (8.4-10.2) mg/dL Phosphorus (2.7-4.5) mg/dL Magnesium (1.6-2.6) mg/dL Total Bilirubin (0.0-1.0) mg/dL Direct Bilirubin (0.0-0.5) mg/dL AST (5-31) U/L ALT (0-31) U/L Alkaline Phosphatase (39-117) U/L Total Protein (6.5-8.0) g/dL Albumin (3.5-5.0) g/dL Lipase (8-78) U/L Beta HCG, Quant mIU/mL Ethyl Alcohol mg/dL ECG Data Attestation: I personally reviewed and interpreted this ECG as follows: ECG interpretation date: 12/17/21 ECG interpretation time: 17:49 Prior ECG tracings: available for review Interpretation: Sinus tachycardia, ventricular rate 105 beats per minute, normal [place] interval, QTC 481 MS, no ST segment elevations or depressions. Critical Care Time Critical Care Time Critical Care Time: Yes Total Critical Care Time: 36 Attestation: I have personally provided critical care time exclusive of time spent on separately billable procedures. Time includes review of lab data, radiology results, discussion with consultants, and monitoring for potential decompensation. Intervention performed as documented. Discharge Plan Discharge Clinical Impression: Alcohol withdrawal, Acute dehydration, Nausea & vomiting, Elevated lactic acid level Patient Disposition: Admitted As Inpatient
[2021-12-17 16:24] VITALS: BP 171/96; PULSE 92; RESP 16; TEMP 36.2; O2SAT 97
[2021-12-17 16:25] LABS: Magnesium 1.5 mg/dL (1.6-2.6); Phosphorus 3.2 mg/dL (2.7-4.5)
--- NOTE | 2021-12-17 16:33 | ECG_ITS ---
Test Reason : ABD PAIN Blood Pressure : / mmHG Vent. Rate : 105 BPM Atrial Rate : 105 BPM P-R Int : 152 ms QRS Dur : 072 ms QT Int : 364 ms P-R-T Axes : 066 064 044 degrees QTc Int : 481 ms Sinus tachycardia Otherwise normal ECG When compared with ECG of 16-NOV-2020 06:25, Heart rate has increased Referred By: Karina Michel Electronically Signed By:URSULA OLVERA
[2021-12-17 16:37] LABS: INTERNATIONAL NORM RATIO 1.1 (0.9-1.1); Prothrombin Time 12.3 SEC (10.0-13.1)
[2021-12-17 16:40] LABS: Partial Thromboplastin Time 29.9 SEC (26.0-36.4)
[2021-12-17 16:41] LABS: Lactic Acid 5.2 mmol/L (0.5-2.0)
[2021-12-17] MEDS: Midazolam HCl/PF 2 MG/2 ML VIAL IVPUSH (16:41)
[2021-12-17] MEDS: ondansetron HCL 4 MG/2 ML VIAL IVPUSH ×2 (16:41→21:01)
[2021-12-17] MEDS: 0.9 % Sodium Chloride 1,000 ML 999 ML IVCONT ×2 (16:41→16:42)
[2021-12-17 16:42] LABS: Ethanol 26 mg/dL
[2021-12-17] MEDS: iohexoL 350 MG/ML 100 ML INFUS..BTL IV (16:58)
--- NOTE | 2021-12-17 17:29 | PHA.MEDREC ---
Pharmacy Consult ? Medication Reconciliation Pharmacy has completed the medication reconciliation.
[2021-12-17] MEDS: Ketorolac Tromethamine 30 MG/ML VIAL IVPUSH (17:35)
[2021-12-17] MEDS: Magnesium Sulfate/H2O 2 GM/50 ML PIGGYBACK IV (17:35)
[2021-12-17 17:43] VITALS: BP 142/84; PULSE 68; RESP 16; TEMP 36.8; O2SAT 98
[2021-12-17 18:18] LABS: Reflex Lactate? Lactic Acid Added
[2021-12-17] MEDS: Morphine Sulfate 2 MG/ML CARTRIDGE IVPUSH (18:34)
[2021-12-17] MEDS: PHENobarbitaL sodium 130 MG/ML IM ONCE 205 MG IM (18:40)
[2021-12-17 18:50] VITALS: BP 162/105; PULSE 94; RESP 16; TEMP 36.6; O2SAT 98
[2021-12-17 19:21] LABS: ~Lactic Acid-LAB USE ONLY 3.2 mmol/L (0.5-2.0)
[2021-12-17] MEDS: Dextrose 5 % and Lactated Ring 1,000 ML 125 ML IVCONT (19:23)
[2021-12-17 19:38] VITALS: BP 152/96; PULSE 93; RESP 16; TEMP 36.6; O2SAT 98
[2021-12-17 19:58] LABS: COVID-19 Test Negative (Negative); IDNOW Serial# 16C4AD1C
[2021-12-17 20:33] VITALS: BP 155/100; PULSE 100; RESP 16; TEMP 36.9; O2SAT 97
--- NOTE | 2021-12-17 20:34 | P.HPHOSP_ITS ---
History of Present Illness Date of Service: 12/17/21 Chief Complaint: alcohol withdrawal 36-year-old female with past medical history of alcohol abuse, presents to the hospital with complaints of alcohol withdrawals. Patient reports that she decided to detox and her last drink was the night prior to presentation. She developed nausea, vomiting, shaking, severe anxiety, she is also complaining of back pain throughout the back not specific to any area, worse when she is retching, she has had no history of withdrawal seizures. And denies any IV drug use. Patient denies any chest pain, no headache or change in vision, no abdominal pain, no diarrhea constipation, no urinary symptoms and no lower extremity edema On arrival to the ED patient has tachycardia but otherwise stable Labs are significant for WBC count of 5.9, chloride of 92, BUN of 7, lactic acid of 5.2, improved with IV fluids, magnesium of 1.5, AST of 139, ALT of 51, UA positive for nitrites and leukocyte Estrace as well as WBC, UDS is positive for opioids, barbiturates, benzos, and marijuana patient started on IV fluids and phenobarb will be admitted for further management Review of Systems Review of Systems: Yes all other systems are reviewed and are negative [facility] Medical History (Updated 12/18/21 @ 06:23 by Navin Jesus MD) Alcohol abuse Pancreatitis Family History (Updated 12/18/21 @ 06:22 by Navin Jesus MD) Other No family history of coronary artery disease Surgical History (Updated 12/18/21 @ 06:22 by Navin Jesus MD) No pertinent past surgical history Social History Alcohol intake: unknown Patient Tobacco Use Status: Tobacco use Unknown Use of substances other than those prescribed or required for medical reasons: Unknown Advance Directives: Yes Advance Directives on File: Yes Advance Directives Date on File: 11/16/20 service: No Current occupational status: employed Meds Allergies Allergy/AdvReac Type Severity Reaction Status Date / Time Penicillins [PENICILLINS] Allergy Intermediate HIVES Verified 11/15/20 23:58 Active Medications: Current Medications Dextrose/Lactated Ringer's (D5lr) 1,000 mls @ 125 mls/hr IVCONT .Q8H NESS Last Admin: 08/22/22 19:23 Dose: 125 mls/hr Pharmacy Consult (Consult Rx Etoh Phenob Im/Po) 1 each MISCELLANE ONCE PRN; Protocol PRN Reason: Consult order Pharmacy Consult (Consult Rx Perform Med Rec) 1 each MISCELLANE ONCE PRN PRN Reason: Consult order Phenobarbital (Phenobarbital 15 Mg Tablet) 45 mg PO BID NESS; Protocol Stop: 12/19/21 21:01 Phenobarbital (Phenobarbital 15 Mg Tablet) 15 mg PO BID NESS; Protocol Stop: 12/21/21 21:01 Phenobarbital (Phenobarbital 15 Mg Tablet) 15 mg PO DAILY NESS; Protocol Stop: 12/23/21 09:01 Phenobarbital Sodium (Phenobarbital Sodium 130 Mg/Ml Vial Im Q3hx2) 155 mg IM Q3H NESS; Protocol Stop: 12/18/21 00:01 Home Medications Medication Instructions Recorded Confirmed Last Taken Type buprenorphine 8 mg-naloxone 2 mg 1 strip sublingual DAILY 12/17/21 12/17/21 12/16/21 History sublingual film (Suboxone) Physical Exam Vital Signs and Narrative: Vital Signs: Last Vital Signs Temp 97.8 F 12/17/21 19:38 Pulse 93 12/17/21 19:38 Resp 16 12/17/21 19:38 BP 152/96 H 12/17/21 19:38 Pulse Ox 98 12/17/21 19:38 O2 Del Method 12/17/21 19:38 BMI result Body Mass Index 19.2 Const: General: cooperative and no acute distress Orientation/consciousness: patient oriented x3 Eyes: General: appearance normal, both eyes and all related structures Pupils: Equal, round and reactive pupils present Resp: Effort & Inspection: normal respiratory effort Auscultation: clear to auscultation bilaterally Cardio: Rate: regular rate Rhythm: regular rhythm GI: Palpation (GI): Soft to palpation Auscultation: normal bowel sounds Skin: General skin exam: no rashes or lesions noted Neuro: General: patient oriented x3 Cranial nerves: Yes Equal, round and reactive pupils present Cognition (Neuro): normal cognition Extrem: Other: no tenderness on palpation of her back, and spine General: Yes normal to inspection and Yes no pedal edema Results Labs CBC and Chem 7: 12/18/21 04:38 12/18/21 04:38 Labs: Laboratory Results - last 24 hr 12/17/21 12/17/21 12/17/21 14:18 14:18 14:18 MCV 99.8 H MCH 35.8 H MCHC 35.8 H RDW 13.3 Plt Count 176 MPV 9.3 L Immature Gran % (Auto) 0.4 Neut % (Auto) 89.2 H Lymph % (Auto) 4.9 L [place] % (Auto) 4.9 Eos % (Auto) 0.1 Baso % (Auto) 0.5 Lymph # (Auto) 0.4 L [place] # (Auto) 0.4 Eos # (Auto) 0.0 Baso # (Auto) 0.0 Abs Immat Gran (auto) 0.03 Absolute Neuts (auto) 7.5 Absolute Nucleated RBC 0.000 Nucleated RBC % (auto) 0.0 PT INR APTT Anion Gap 24 H Estim Creat Clear Calc 79.6 Estimated GFR > 60 Random Glucose 114 Lactic Acid Lactic Acid F/U @ 2Hr Calcium 10.7 H D Phosphorus 3.2 Magnesium 1.5 L Total Bilirubin 1.6 H Direct Bilirubin 0.8 H AST 139 H ALT 51 H Alkaline Phosphatase 115 Total Protein 8.6 H D Albumin 5.4 H D Lipase 148 H Beta HCG, Quant < 2 Ethyl Alcohol COVID-19 (MARCELLA) [employer] 12/17/21 12/17/21 12/17/21 16:14 16:14 16:14 MCV MCH MCHC RDW Plt Count MPV Immature Gran % (Auto) Neut % (Auto) Lymph % (Auto) [place] % (Auto) Eos % (Auto) Baso % (Auto) Lymph # (Auto) [place] # (Auto) Eos # (Auto) Baso # (Auto) Abs Immat Gran (auto) Absolute Neuts (auto) Absolute Nucleated RBC Nucleated RBC % (auto) PT 12.3 INR 1.1 APTT 29.9 Anion Gap Estim Creat Clear Calc Estimated GFR Random Glucose Lactic Acid 5.2 H* Lactic Acid F/U @ 2Hr Calcium Phosphorus Magnesium Total Bilirubin Direct Bilirubin AST ALT Alkaline Phosphatase Total Protein Albumin Lipase Beta HCG, Quant Ethyl Alcohol 26 COVID-19 (MARCELLA) COVID-[employer] 12/17/21 12/17/21 18:48 19:37 MCV MCH MCHC RDW Plt Count MPV Immature Gran % (Auto) Neut % (Auto) Lymph % (Auto) [place] % (Auto) Eos % (Auto) Baso % (Auto) Lymph # (Auto) [place] # (Auto) Eos # (Auto) Baso # (Auto) Abs Immat Gran (auto) Absolute Neuts (auto) Absolute Nucleated RBC Nucleated RBC % (auto) PT INR APTT Anion Gap Estim Creat Clear Calc Estimated GFR Random Glucose Lactic Acid Lactic Acid F/U @ 2Hr 3.2 H* Calcium Phosphorus Magnesium Total Bilirubin Direct Bilirubin AST ALT Alkaline Phosphatase Total Protein Albumin Lipase Beta HCG, Quant Ethyl Alcohol COVID-19 (MARCELLA) Negative COVID-19 Clin Com See Note Imaging Radiologist's Impressions: Impressions Abdomen/Pelvis CT 12/17/21 17:07 IMPRESSION: 1. Mild hepatomegaly and prominent hepatic steatosis. 2. No evidence of acute pancreatitis other acute intra-abdominal process. 3. Slightly thick-walled appearance of the colon favored due to incomplete distention. Assessment and Plan (1) Alcohol withdrawal: Status: Acute (2) Acute dehydration: Status: Acute (3) Nausea & vomiting: Status: Acute (4) Elevated lactic acid level: Status: Acute (5) Hypomagnesemia: Status: Acute (6) UTI (urinary tract infection): Status: Acute Plan 36-year-old female with past medical history of alcohol abuse presents the hospital with alcohol withdrawal # alcohol abuse with alcohol withdrawal - patient drinks about 10 shots of hard liquor daily - last drink was about 12 hours ago - has CIWA>15 - start on phenobarb protocol - will add thiamine and folic acid - care team consult in # acute dehydration - as elevated lactic acidosis - will treat with IV fluids - follow BMP # nausea and vomiting - secondary to above - improving with antiemetics - IV fluids # hypomagnesemia - likely secondary to alcohol abuse - repleted - follow Mag low # UTI - patient denies symptoms at this time but given her acute illness and hospitalization will treat with IV antibiotics, patient can be switched to p.o. in a.m. DVT prophylaxis: Lovenox Given patient's alcohol withdrawal and potential for complications including withdrawal seizures and DTs patient will be admitted for further management and monitoring Quality Stroke Does the patient have a stroke diagnosis?: No VTE Prior VTE?: No VTE Risk Level:: Medical - moderate - high VTE Device Contraindication: Treatment Not Indicated VTE Drug Contraindication: N/A - Med Ordered
[2021-12-17 20:54] LABS: Reflex Lactate? 2 Y
--- NOTE | 2021-12-17 21:48 | MHC.RECOVSUP ---
? Reason for consult:Recovery Support o Current location: ED18? o ?Identified substance use concern: Alcohol - Withdrawal - Support ? ?Intervention: o MAT started or to be started o Community resources provided o Harm reduction discussion ? Plan: o Referral to CCC o Bed search in progress to o Follow up tomorrow ? ? Additional information:?Patient is a 36 year old female, newly and hiding her addiction from her . Patient describes her unmanageability from alcoholism and states her father passed from the disease not too long ago. Patient is scared and is ready to seek help. Patient wasn't feeling well and is being admitted this evening. A follow up with a plan for community services and a review of options along with a referral for a MAT and [employer]er is wanted. I will check in with patient on tomorrow's shift.
--- NOTE | 2021-12-17 22:03 | MHC.CM.PN ---
CM met with admitted patient with bed assignment pending. Pt lives with Arron.Joao Lewis, who is her HCP. Pt tells pitching coach that she is recently . Did not mention to CM. Employed at [employer]. No DME/services. Unvaccinated for Covid. Pt is willing to meet with pitching coach. Pt is some what tearful. Pt takes suboxone daily. D/C plan is home. Unsure of recovery plan at this time. Pt will arrange transportation home. CM to follow for d/c needs.
[2021-12-17 22:26] LABS: Appearance Urine Turbid; Color Urine Red; Glucose Urine UA Negative (Negative); Leukocyte Esterase Urine Small (1+) (Negative); Nitrite Urine Positive (Negative); PH >= 9.0 (5.0-8.0); Specific Gravity - Urine >= 1.030 (1.005-1.025); Urine Blood Moderate (2+) (Negative); Urine Ketones Negative (Negative); Urine Protein 100 (2+) mg/dL (Neg-Trace)
[2021-12-17 22:28] LABS: ~Lactic Acid-LAB USE ONLY 2.2 mmol/L (0.5-2.0)
[2021-12-17 22:31] LABS: Amphetamine Screen Urine Not Detected (Not Detect); Barbiturates, Urine POSITIVE (Not Detect); Benzodiazepines Screen Urine POSITIVE (Not Detect); Cannabinoid Screen Urine POSITIVE (Not Detect); Cocaine Screen Urine Not Detected (Not Detect); Fentanyl, urine Not Detected (Not Detect); Opiate Screen Urine POSITIVE (Not Detect); Phencyclidine Screen Urine Not Detected (Not Detect)
[2021-12-17] MEDS: PHENobarbitaL sodium 130 MG/ML VIAL IM Q3Hx2 155 MG IM (22:39)
[2021-12-17 22:46] LABS: Bacteria Urine 4+ (None Seen); Hyaline Casts Urine 0-2 /LPF (0-2); RBC Urine >20 /HPF (0-2); Squamous Epithelial Cell Urine >20 /HPF (0-2); UACC Culture Trigger YES
[2021-12-17] MEDS: oxyCODONE HCl Immed Release 5 MG TABLET PO (23:58)
[2021-12-17] MEDS: Prochlorperazine Edisylate 10 MG/2 ML VIAL 5 MG IVPUSH (23:59)
[2021-12-17] MEDS: Enoxaparin Sodium 40 MG/0.4 ML SYRINGE SUBCUT (23:59)
[2021-12-18] MEDS: Lactated Ringers 1,000 ML 100 ML IVCONT ×3 (01:04→16:44)
[2021-12-18 02:00] VITALS: BP 146/93; PULSE 93; RESP 14; O2SAT 96
[2021-12-18] MEDS: PHENobarbitaL sodium 130 MG/ML VIAL IM Q3Hx2 155 MG IM (02:08)
[2021-12-18 04:00] VITALS: BP 143/103; PULSE 85; RESP 16; TEMP 36.8; O2SAT 98
[2021-12-18 04:53] LABS: MANUAL DIFF FLAG NO
[2021-12-18 04:54] LABS: Basophils Percent Auto 0.3 % (0-2); Hematocrit 35.6 % (37.0-47.0); Hemoglobin 12.5 g/dl (12.0-16.0); Imm Gran Abs Auto 0.03 X10*3/uL (0.00-0.03); Imm Gran Pct Auto 0.5 % (0.0-0.4); Lymphocytes Percent Auto 16.2 % (20-40); Mean Corpuscular HGB Conc 35.1 g/dl (31.0-35.0); Mean Corpuscular Hemoglobin 35.3 pg (27.0-33.0); Mean Corpuscular Volume 100.6 fL (80.0-98.0); Mean Platelet Volume 10.1 fL (9.4-12.3); Monocytes Absolute Auto 0.6 X10*3/uL (0.1-1.2); Monocytes Percent Auto 10.6 % (2-11); Neutrophils Absolute Auto 4.2 x10*3/uL (2.0-8.3); Neutrophils Percent Auto 72.4 % (45-73); Platelet Count 118 X10*3/uL (160-400); Red Blood Count 3.54 X10*6/uL (4.20-5.50); Red Cell Distribution Width 13.2 % (11.0-16.0); White Blood Count 5.9 X10*3/uL (4.8-10.8)
[2021-12-18 05:13] LABS: Anion Gap 13 (12-20); Blood Urea Nitrogen 6 mg/dL (9-16); Calcium 8.2 mg/dL (8.4-10.2); Carbon Dioxide 29 mmol/L (22-29); Chloride 98 mmol/L (96-108); Creatinine Clr Calc Pharmacy 104.9; Estimated Glomerular Filt Rate > 60; Glucose Random 81 mg/dL (60-115); Potassium 3.3 mmol/L (3.3-5.1); Sodium 137 mmol/L (135-145)
[2021-12-18 06:54] LABS: Magnesium 1.7 mg/dL (1.6-2.6)
[2021-12-18] MEDS: cefTRIAXone sodium 1 GM in 0.9 % Sodium Chloride 50 ML IV (07:48)
[2021-12-18] MEDS: Folic Acid 1 MG TABLET PO (07:50)
[2021-12-18] MEDS: Buprenorphine/Naloxone 8/2 mg FILM 1 FILM SUBLINGUAL (07:51)
[2021-12-18] MEDS: Thiamine HCL 100 MG TABLET PO (07:51)
[2021-12-18] MEDS: PHENobarbitaL 15 MG TABLET 45 MG PO ×2 (07:51→22:11)
[2021-12-18 07:56] VITALS: BP 141/97; PULSE 69; RESP 10; O2SAT 97
--- NOTE | 2021-12-18 07:57 | PC.NURSE ---
Pt alert and oriented x4. Respirations even and unlabored. NSR on the monitor. Resting comfortably, skin pwd.
--- NOTE | 2021-12-18 11:20 | MHC.RECOVRN ---
Chart reviewed. Attempted to meet with pt. Pt sleeping. Will return at a later time. T/w available as needed.
--- NOTE | 2021-12-18 13:28 | MHC.RECOVRN ---
Met with pt in ED18 to discuss substance use. Pt in bed, easily wakes to voice, alert, oriented and easily engages in conversation. Pt reports alcohol use for the past few months with the past month being heavy, a sleeve of vodka a day. Pt hospitalized last year for pancreatitis and was able to abstain for some time after dc, utilizing work and family support. Pt states I started just thinking I could drink casually and I know now I can't. Pt recently partner of 3 years in early October, reports he is supportive of pts recovery. Pt also has a friend at work who is supportive and active in AA. Met with Pathologist last night, has RC card and information. Discussed KIRAN, pt is interested in Campr[facility]. Currently prescribed Suboxone x 5 years from [facility] in [place]. Denies opioid use or cravings. Pt has weekly appointments on Tuesdays and will need bridge script upon discharge. Denies withdrawal symptoms at this time. Pt denies other questions or concerns. Discussed with Yokasta Adam APRN. Plan for to meet with pt to discuss KIRAN. Pt provided with t/w contact information, available as needed.
--- NOTE | 2021-12-18 14:04 | HO.PM.IMPN ---
Subjective Subjective Date of Service: 12/18/21 Interval History: alcoholwithdrawal, elevated LFTs Review of Systems Still very anxious and tremulous Physical Exam Vital Signs: Vital Signs: Last Vital Signs Temp 98.3 F 12/18/21 04:00 Pulse 69 12/18/21 07:56 Resp 10 L 12/18/21 07:56 BP 141/97 H 12/18/21 07:56 Pulse Ox 97 12/18/21 07:56 O2 Del Method 12/18/21 07:56 BMI result Body Mass Index 19.2 Appearance: Alert.? Oriented X3.? cvs: rrr, [id number]. res: clear to auscultation ,no rhonchii or wheezing abd: no rebound or guarding ,nt, bs present. ext pulses present , no cyanosis . neuro: nonfocal.tramulous /anxious Objective Data Active Medications Acetaminophen (Acetaminophen 325 Mg Tablet) 650 mg PO Q6H PRN PRN Reason: Pain, Mild (Pain Scale 1-3) Buprenorphine/Naloxone (Buprenorphine/Naloxone 8/2 Mg Film) 1 film SUBLINGUAL DAILY [facility] Last Admin: 12/18/21 07:51 Dose: 1 film Documented By: MIRANDA Docusate Sodium (Docusate Sodium 100 Mg Capsule) 100 mg PO DAILY PRN PRN Reason: Constipation Enoxaparin Sodium (Enoxaparin Sodium 40 Mg/0.4 Ml Syringe) 40 mg SUBCUT Q24H [facility] Last Admin: 12/17/21 23:59 Dose: 40 mg Documented By: DANNI Folic Acid (Folic Acid 1 Mg Tablet) 1 mg PO DAILY [facility] Last Admin: 12/18/21 07:50 Dose: 1 mg Documented By: MIRANDA Lactated Ringer's (Lr) 1,000 mls @ 100 mls/hr IVCONT .Q10H [facility] Last Admin: 12/18/21 08:55 Dose: 100 mls/hr Documented By: MIRANDA Ceftriaxone Sodium 1 gm/ (Sodium Chloride) 50 mls @ 100 mls/hr IV Q24H [facility] Last Infusion: 12/18/21 09:26 Dose: 0 mls/hr Documented By: EMMY Ondansetron HCl (Ondansetron Hcl 4 Mg/2 Ml Vial) 4 mg IVPUSH Q8H PRN PRN Reason: Nausea and Vomiting Last Admin: 12/17/21 21:01 Dose: 4 mg Documented By: DANNI Pharmacy Consult (Consult Rx Etoh Phenob Im/Po) 1 each MISCELLANE ONCE PRN; Protocol PRN Reason: Consult order Pharmacy Consult (Consult Rx Perform Med Rec) 1 each MISCELLANE ONCE PRN PRN Reason: Consult order Phenobarbital (Phenobarbital 15 Mg Tablet) 45 mg PO BID [facility]; Protocol Stop: 12/19/21 21:01 Last Admin: 12/18/21 07:51 Dose: 45 mg Documented By: MIRANDA Phenobarbital (Phenobarbital 15 Mg Tablet) 15 mg PO BID [facility]; Protocol Stop: 12/21/21 21:01 Phenobarbital (Phenobarbital 15 Mg Tablet) 15 mg PO DAILY [facility]; Protocol Stop: 12/23/21 09:01 Sodium Chloride (0.9 % Sodium Chloride Flush 3 Ml Syringe) 3 ml IVFLUSH QSHIFT [facility] Last Admin: 12/18/21 07:52 Dose: Not Given Documented By: MIRANDA Non-Admin Reason: IV Running Thiamine HCl (Thiamine Hcl 100 Mg Tablet) 100 mg PO DAILY [facility] Last Admin: 12/18/21 07:51 Dose: 100 mg Documented By: MIRANDA Labs CBC & Chem 7: 12/18/21 04:38 12/18/21 04:38 Labs: Laboratory Results - last 24 hr 12/17/21 12/17/21 12/17/21 14:18 14:18 14:18 MCV 99.8 H MCH 35.8 H MCHC 35.8 H RDW 13.3 Plt Count 176 MPV 9.3 L Immature Gran % (Auto) 0.4 Neut % (Auto) 89.2 H Lymph % (Auto) 4.9 L [place] % (Auto) 4.9 Eos % (Auto) 0.1 Baso % (Auto) 0.5 Lymph # (Auto) 0.4 L [place] # (Auto) 0.4 Eos # (Auto) 0.0 Baso # (Auto) 0.0 Abs Immat Gran (auto) 0.03 Absolute Neuts (auto) 7.5 Absolute Nucleated RBC 0.000 Nucleated RBC % (auto) 0.0 PT INR APTT Anion Gap 24 H Estim Creat Clear Calc 79.6 Estimated GFR > 60 Random Glucose 114 Lactic Acid Lactic Acid F/U @ 2Hr Lactic Acid F/U @ 4Hr Calcium 10.7 H D Phosphorus 3.2 Magnesium 1.5 L Total Bilirubin 1.6 H Direct Bilirubin 0.8 H AST 139 H ALT 51 H Alkaline Phosphatase 115 Total Protein 8.6 H D Albumin 5.4 H D Lipase 148 H Beta HCG, Quant < 2 Urine Color Urine Appearance Urine pH Ur Specific Ward Urine Protein Urine Glucose (UA) Urine Ketones Urine Blood Urine Nitrite Ur Leukocyte Esterase Urine RBC Urine WBC Ur Squamous Epith Cells Urine Bacteria Hyaline Casts Urine Opiates Screen Urine Fentanyl Screen Ur Barbiturates Screen Ur Phencyclidine Scrn Ur Amphetamines Screen U Benzodiazepines Scrn Urine Cocaine Screen U Marijuana (THC) Screen Ethyl Alcohol COVID-19 ([facility]CELLA) COVID-19 Peatix 12/17/21 12/17/21 12/17/21 16:14 16:14 16:14 MCV MCH MCHC RDW Plt Count MPV Immature Gran % (Auto) Neut % (Auto) Lymph % (Auto) [place] % (Auto) Eos % (Auto) Baso % (Auto) Lymph # (Auto) [place] # (Auto) Eos # (Auto) Baso # (Auto) Abs Immat Gran (auto) Absolute Neuts (auto) Absolute Nucleated RBC Nucleated RBC % (auto) PT 12.3 INR 1.1 APTT 29.9 Anion Gap Estim Creat Clear Calc Estimated GFR Random Glucose Lactic Acid 5.2 H* Lactic Acid F/U @ 2Hr Lactic Acid F/U @ 4Hr Calcium Phosphorus Magnesium Total Bilirubin Direct Bilirubin AST ALT Alkaline Phosphatase Total Protein Albumin Lipase Beta HCG, Quant Urine Color Urine Appearance Urine pH Ur Specific Ward Urine Protein Urine Glucose (UA) Urine Ketones Urine Blood Urine Nitrite Ur Leukocyte Esterase Urine RBC Urine WBC Ur Squamous Epith Cells Urine Bacteria Hyaline Casts Urine Opiates Screen Urine Fentanyl Screen Ur Barbiturates Screen Ur Phencyclidine Scrn Ur Amphetamines Screen U Benzodiazepines Scrn Urine Cocaine Screen U Marijuana (THC) Screen Ethyl Alcohol 26 COVID-19 (MARCELLA) COVID-19 Peatix 12/17/21 12/17/21 12/17/21 18:48 19:37 21:30 MCV MCH MCHC RDW Plt Count MPV Immature Gran % (Auto) Neut % (Auto) Lymph % (Auto) [place] % (Auto) Eos % (Auto) Baso % (Auto) Lymph # (Auto) [place] # (Auto) Eos # (Auto) Baso # (Auto) Abs Immat Gran (auto) Absolute Neuts (auto) Absolute Nucleated RBC Nucleated RBC % (auto) PT INR APTT Anion Gap Estim Creat Clear Calc Estimated GFR Random Glucose Lactic Acid Lactic Acid F/U @ 2Hr 3.2 H* Lactic Acid F/U @ 4Hr 2.2 H* Calcium Phosphorus Magnesium Total Bilirubin Direct Bilirubin AST ALT Alkaline Phosphatase Total Protein Albumin Lipase Beta HCG, Quant Urine Color Urine Appearance Urine pH Ur Specific Ward Urine Protein Urine Glucose (UA) Urine Ketones Urine Blood Urine Nitrite Ur Leukocyte Esterase Urine RBC Urine WBC Ur Squamous Epith Cells Urine Bacteria Hyaline Casts Urine Opiates Screen Urine Fentanyl Screen Ur Barbiturates Screen Ur Phencyclidine Scrn Ur Amphetamines Screen U Benzodiazepines Scrn Urine Cocaine Screen U Marijuana (THC) Screen Ethyl Alcohol COVID-19 (MARCELLA) Negative COVID-19 Clin Com See Note 12/17/21 12/17/21 12/18/21 21:50 21:50 04:38 MCV 100.6 H MCH 35.3 H MCHC 35.1 H RDW 13.2 Plt Count 118 L D MPV 10.1 Immature Gran % (Auto) 0.5 H Neut % (Auto) 72.4 Lymph % (Auto) 16.2 L [place] % (Auto) 10.6 Eos % (Auto) 0.0 Baso % (Auto) 0.3 Lymph # (Auto) 1.0 L [place] # (Auto) 0.6 Eos # (Auto) 0.0 Baso # (Auto) 0.0 Abs Immat Gran (auto) 0.03 Absolute Neuts (auto) 4.2 Absolute Nucleated RBC 0.000 Nucleated RBC % (auto) 0.0 PT INR APTT Anion Gap Estim Creat Clear Calc Estimated GFR Random Glucose Lactic Acid Lactic Acid F/U @ 2Hr Lactic Acid F/U @ 4Hr Calcium Phosphorus Magnesium Total Bilirubin Direct Bilirubin AST ALT Alkaline Phosphatase Total Protein Albumin Lipase Beta HCG, Quant Urine Color Red A Urine Appearance Turbid Urine pH >= 9.0 H Ur Specific Ward >= 1.030 H Urine Protein 100 (2+) H Urine Glucose (UA) Negative Urine Ketones Negative Urine Blood Moderate (2+) H Urine Nitrite Positive H Ur Leukocyte Esterase Small (1+) H Urine RBC >20 H Urine WBC 11-20 H Ur Squamous Epith Cells >20 Urine Bacteria 4+ Hyaline Casts 0-2 Urine Opiates Screen POSITIVE H Urine Fentanyl Screen Not Detected Ur Barbiturates Screen POSITIVE H Ur Phencyclidine Scrn Not Detected Ur Amphetamines Screen Not Detected U Benzodiazepines Scrn POSITIVE H Urine Cocaine Screen Not Detected U Marijuana (THC) Screen POSITIVE H Ethyl Alcohol COVID-19 ([facility]CELLA) COVID-19 Clin Com 12/18/21 12/18/21 04:38 06:27 MCV MCH MCHC RDW Plt Count MPV Immature Gran % (Auto) Neut % (Auto) Lymph % (Auto) [place] % (Auto) Eos % (Auto) Baso % (Auto) Lymph # (Auto) [place] # (Auto) Eos # (Auto) Baso # (Auto) Abs Immat Gran (auto) Absolute Neuts (auto) Absolute Nucleated RBC Nucleated RBC % (auto) PT INR APTT Anion Gap 13 Estim Creat Clear Calc 104.9 Estimated GFR > 60 Random Glucose 81 Lactic Acid Lactic Acid F/U @ 2Hr Lactic Acid F/U @ 4Hr Calcium 8.2 L D Phosphorus Magnesium 1.7 Total Bilirubin Direct Bilirubin AST ALT Alkaline Phosphatase Total Protein Albumin Lipase Beta HCG, Quant Urine Color Urine Appearance Urine pH Ur Specific Ward Urine Protein Urine Glucose (UA) Urine Ketones Urine Blood Urine Nitrite Ur Leukocyte Esterase Urine RBC Urine WBC Ur Squamous Epith Cells Urine Bacteria Hyaline Casts Urine Opiates Screen Urine Fentanyl Screen Ur Barbiturates Screen Ur Phencyclidine Scrn Ur Amphetamines Screen U Benzodiazepines Scrn Urine Cocaine Screen U Marijuana (THC) Screen Ethyl Alcohol COVID-19 ([facility]CELLA) COVID-19 Clin Com Assessment and Plan (1) Alcohol withdrawal: Status: Acute (2) UTI (urinary tract infection): Status: Acute Plan 36-year-old female with past medical history of alcohol abuse presents the hospital with alcohol withdrawal #? alcohol abuse with alcohol withdrawal -? patient drinks about 10 shots? of hard liquor daily,last drink was about 12 hours ago moniter john continue phenobarb? protocol and thiamine and folic acid, care team consult . #? acute dehydration -? as elevated lactic acidosis -? will treat with IV fluids -? follow BMP #? nausea and vomiting -? secondary to above -? improving with antiemetics -? IV fluids #? hypomagnesemia -? likely secondary to alcohol abuse -? repleted and resolved addedpo suppl. #? UTI -? patient denies symptoms at this time but given her acute illness and hospitalization will treat with IV antibiotics, urine culture/blood culture pending ?DVT prophylaxis:? Lovenox inpatient need: alcohol withdrawals on pheonobarbital proticol,dehydration Quality Stroke Does the patient have a stroke diagnosis?: No VTE Prior VTE?: No VTE Risk Level:: Medical - moderate - high VTE Device Contraindication: Treatment Not Indicated VTE Drug Contraindication: N/A - Med Ordered
[2021-12-18] MEDS: hydrOXYzine HCL 25 MG TABLET PO (14:32)
[2021-12-18] MEDS: Potassium Chloride Packet 20 MEQ PACKET PO (14:32)
[2021-12-18 14:41] VITALS: BP 153/98; PULSE 65; RESP 10; O2SAT 100
[2021-12-18] MEDS: Magnesium Oxide 400 MG TABLET PO (16:44)
--- NOTE | 2021-12-18 20:30 | MHC.RECOVSUP ---
? Reason for consult:Recovery Support o Current location: ED18 o Identified substance use concern: Alcohol - Withdrawal - Support ? ?Intervention: o MAT started or to be started o Community resources provided o Harm reduction discussion ? Additional information:?I was able to connect with patient and review harm reduction strategies. Jenifer will be discharged tomorrow and returning back to her residence with her . After discussing her reality of home life, we were able to come up with tools for her to utilize and a plan for change. Jenifer is looking for a referral for a therapist and a Dog Bather to connect her with community resources and support. I was able to print out a list of AA meetings in her area along with resources. Jenifer is also in need of a prescription for an MAT to stop the cravings for alcohol, she has an appointment on Friday with [facility] and will let them know what she needs to support her recovery.
[2021-12-18] MEDS: Enoxaparin Sodium 40 MG/0.4 ML SYRINGE SUBCUT (21:47)
--- NOTE | 2021-12-18 22:06 | PC.NURSE ---
RN-RN report given.
[2021-12-18 22:59] VITALS: BMI 18.5
[2021-12-18 23:52] VITALS: BP 147/84; PULSE 72; RESP 18; TEMP 36.1; O2SAT 100
[2021-12-19 04:00] VITALS: BP 135/75; PULSE 65; RESP 18; TEMP 36.4; O2SAT 97
[2021-12-19 05:55] LABS: PLT CLUMP 1
[2021-12-19 05:57] LABS: Hemoglobin 13.5 g/dl (12.0-16.0); Mean Corpuscular HGB Conc 35.5 g/dl (31.0-35.0); Mean Corpuscular Hemoglobin 35.2 pg (27.0-33.0); Red Blood Count 3.84 X10*6/uL (4.20-5.50); Red Cell Distribution Width 12.7 % (11.0-16.0)
[2021-12-19 06:12] LABS: Platelet Count 110 X10*3/uL (160-400); White Blood Count 4.4 X10*3/uL (4.8-10.8)
[2021-12-19] MEDS: cefTRIAXone sodium 1 GM in 0.9 % Sodium Chloride 50 ML IV (06:15)
[2021-12-19 06:16] LABS: Anion Gap 18 (12-20); Blood Urea Nitrogen 4 mg/dL (9-16); Calcium 8.7 mg/dL (8.4-10.2); Carbon Dioxide 27 mmol/L (22-29); Chloride 94 mmol/L (96-108); Creatinine Clr Calc Pharmacy 102.9; Estimated Glomerular Filt Rate > 60; Glucose Random 65 mg/dL (60-115); Potassium 3.7 mmol/L (3.3-5.1); Sodium 135 mmol/L (135-145)
[2021-12-19] MEDS: hydrOXYzine HCL 25 MG TABLET PO (06:17)
[2021-12-19] MEDS: Lactated Ringers 1,000 ML 100 ML IVCONT (06:19)
[2021-12-19 07:43] VITALS: BP 124/91; PULSE 79; RESP 18; TEMP 36.3; O2SAT 93
[2021-12-19] MEDS: Magnesium Oxide 400 MG TABLET PO (08:42)
[2021-12-19] MEDS: Folic Acid 1 MG TABLET PO (08:42)
[2021-12-19] MEDS: PHENobarbitaL 15 MG TABLET 45 MG PO (08:43)
[2021-12-19] MEDS: Thiamine HCL 100 MG TABLET PO (08:43)
[2021-12-19] MEDS: Buprenorphine/Naloxone 8/2 mg FILM 1 FILM SUBLINGUAL (08:43)
[2021-12-19 11:15] VITALS: BP 130/86; PULSE 69; RESP 18; TEMP 36.2; O2SAT 97
--- NOTE | 2021-12-19 13:17 | P.DS_ITS ---
DS: Providers Provider Date of Service: 12/19/21 Date of admission: 12/17/21 20:32 Date of discharge: 12/19/21 Primary care physician: Nenita Howell MD Consults: 12/18/21 09:54 Consult to Care Team Routine Comment: Reason for consultation: alcohol use DS: Diagnosis Discharge Diagnosis (1) Alcohol withdrawal: Status: Acute (2) UTI (urinary tract infection): Status: Acute DS: Summary Hospital Course Hospital Course: 36-year-old female with past medical history of alcohol abuse, presents to the hospital with complaints of alcohol withdrawals.? Patient reports that she decided to detox and her last drink was the night prior to presentation.? She developed nausea, vomiting, shaking, severe anxiety, she is also complaining of back pain throughout the back not specific to any? area, worse when she is retching, she has had no history of withdrawal seizures.? And denies any IV drug use. ? Patient denies any chest pain, no headache or change in vision, no abdominal pain, no diarrhea constipation, no urinary symptoms and no lower extremity edema On arrival to the ED patient has tachycardia but otherwise stable Labs are significant for? WBC count of 5.9, chloride of 92, BUN of 7, lactic acid of 5.2, improved with IV fluids, magnesium of 1.5, AST of 139, ALT of 51, UA positive for nitrites and leukocyte Estrace as well as WBC, UDS is positive for opioids, barbiturates, benzos, and marijuana ?Hospital Course admitted to medical floor and started on phenobarb protocol. Over the next 24- 48hr patient stable without CIWA score. Seen by care team on the day of discharge; Suboxone sent into bridge total next appointment as she missed her is secondary to be inpatient. she is encouraged to follow up with AA and advised to state from alcohol Time Spent with Patient Time attestation: Total time spent providing and/or coordinating discharge services: Discharge coordination time: Greater than 30 minutes Quality: Safe Use of Opioids Does Pt have an Active Cancer Diagnosis on the Problem List?: No Quality: Stroke Does the patient have a stroke diagnosis?: No Physical Exam Vital Signs: Vital Signs: Last Vital Signs Temp 97.1 F 12/19/21 11:15 Pulse 69 12/19/21 11:15 Resp 18 12/19/21 11:15 BP 130/86 12/19/21 11:15 Pulse Ox 97 12/19/21 11:15 O2 Del Method 12/19/21 11:15 BMI result Body Mass Index 18.5 Const: Other: no acute distress; no signs of withdrawal Resp: Other: clear to auscultation bilaterally no rales rhonchi or wheezes Cardio: Other: no S4; positive S1-S2; no S3 murmurs rubs or gallops GI: Other: soft nontender nondistended with normoactive bowel marya Neuro: Other: cranial nerves 2-12 grossly intact as tested. Motor is 5/5 all extremities. Sensation intact Extrem: Other: no edema bilaterally DS: Data Data Completed and Pending Completed studies during hospitalization [Text1]: Procedures Detoxification Services for Substance Abuse Treatment (11/16/20) Labs on day of discharge: Laboratory Results - last 24 hr 12/19/21 12/19/21 05:24 05:24 WBC 4.4 L RBC 3.84 L Hgb 13.5 Hct 38.0 MCV 99.0 H MCH 35.2 H MCHC 35.5 H RDW 12.7 Plt Count 110 L MPV 10.0 Absolute Nucleated RBC 0.000 Nucleated RBC % (auto) 0.0 Sodium 135 Potassium 3.7 Chloride 94 L Carbon Dioxide 27 Anion Gap 18 BUN 4 L Creatinine 0.59 Estim Creat Clear Calc 102.9 Estimated GFR > 60 Random Glucose 65 Calcium 8.7 D Preliminary micro results at discharge 12/17/21 16:40 Blood Culture - Preliminary Blood - Venous No growth after 24 hours. 12/17/21 16:46 Blood Culture - Preliminary Blood - Venous No growth after 24 hours. Discharge Plan Discharge Patient Disposition: Home, Self-Care Discharge Diagnosis: Alcohol withdrawal Referrals: Nenita Howell MD [Primary Care Provider] - 1 Week Discharge Medications: New acamprosate 333 mg tablet,delayed release (DR/EC) 666 mg PO TID Qty: 90 1RF magnesium oxide 400 mg (241.3 mg magnesium) Tablet 400 mg PO BIDPC Qty: 14 0RF nitrofurantoin monohyd/m-cryst [Macrobid] 100 mg capsule 100 mg PO Q12H 5 Days Qty: 10 0RF Rx Instructions: must administer with a meal/food Continued buprenorphine-naloxone [Suboxone] 8-2 mg film 1 strip sublingual DAILY Discharge Orders: Discharge Order (Routine); Ordered 12/19/21 Ordered By: Raleigh Sharma Diet: Advance to usual diet Activity on Discharge: As tolerated Stand Alone Forms: Patient Portal Discharge page Care Plan Goals: avoid alcohol Health Concerns: follow-up with PCP in 1-2 weeks Plan of Treatment: resume all pre-hospital medications Assessment: see discharge summary
--- NOTE | 2021-12-19 13:32 | MHC.CM.PN ---
PATIENT IS MEDICALLY CLEARED FOR DISCHARGE TODAY; DISCHARGE DISPOSITION IS HOME SELF-CARE. FAMILY TO TRANSPORT.
== END 2021-12-19 14:33 | disposition home or self-care (01) | DRG 463 ==
LOC: HO.ED 16:54 → HO.EDOVER 21:04 → HO.S3 12-18 19:16
PROVIDERS: Internal Medicine; Physician Assistant; Admitting Provider Internal Medicine; Emergency Provider Emergency Medicine; PCP Family Medicine; Visit Provider Hospitalist
DX: N39.0 Urinary tract infection, site not specified (principal); E83.42 Hypomagnesemia; F11.20 Opioid dependence, uncomplicated; F10.239 Alcohol dependence with withdrawal, unspecified; E86.0 Dehydration; Y90.1 Blood alcohol level of 20-39 mg/100 ml; Z20.822 Contact with and (suspected) exposure to COVID-19; Z88.0 Allergy status to penicillin; Z79.899 Other long term (current) drug therapy
CPT/HCPCS: 36415; 74177; 80048; 80076; 80307; 81001; 82077; 83605; 83690; 83735; 84100; 84702; 85025; 85027; 85610; 85730; 87040; 87086; 87635; 93005; 96361; 96372; 96374; 96375; 96376; 99285; J0696; J1650; J1885; J2250; J2270; J2405; J2560; J3475; Q9967

== ENCOUNTER 2023-02-06 08:52 | Outpatient (AMB) | payer BC, SELFPAY ==
[2023-02-06 09:13] VITALS: BP 130/90; PULSE 78; O2SAT 99; BMI 19.6
--- NOTE | 2023-02-06 09:13 | A.OFFPC_ITS ---
Vital Signs 02/06/23 09:13 Height 5 ft 4 in Weight 114 lb 0.4 oz BMI 19.6 BP 130/90 H Blood Pressure Location Lt brachial Position Sitting Pulse 78 Pulse Source Pulse Oximeter Temp Source Skin Pulse Oximetry (%) 99 Oxygen Delivery Method Room Air Intake Visit Reasons: npv-requesting phy Allergies Penicillins [PENICILLINS] Allergy (Intermediate, Verified 02/06/23 09:21) HIVES Medication List - Last Reconciled 02/06/23 by SHELL Plunkett buprenorphine-naloxone 8-2 mg (Suboxone) 1 strip sublingual DAILY Dental Screening Dental Screen Date: 02/06/23 Did you have a dental visit in the last 12 months?: No Did you have a dental problem in the last 6 months where you did not have access to dental care?: No HPI HPI Comments History of Present Illness Details 37-year-old female new patient presents today to establish care. Past medical history significant for opiate abuse and alchol abuse. Patient currently on Suboxone follows with [facility] in [place]. Patient reports she previously used use Percocets and heroin, has been clean [id number]. Patient admits she still drinks 3 times per week anywhere from 2-6 drinks in a day, patient states she cut on her alcohol consumption. Previous pcp:Dr. Crowder, hasn't been seen in 10 years. pap smear: over due, referral entered OBGYN. Eye exam: recommend every couple years. Patient up-to-date on Tdap immunization, refused flu shot. [facility] Medical History (Updated 02/06/23 @ 09:36 by SHELL Plunkett) Opioid abuse Alcohol abuse Pancreatitis Surgical History (Updated 02/06/23 @ 09:23 by SHELL Plunkett) [place] teeth extracted Hx of tonsillectomy Family History (Updated 02/06/23 @ 09:24 by SHELL Plunkett) Mother No problems noted. Father Alcoholic Sister Hypertension Other No family history of coronary artery disease Social History (Updated 02/06/23 @ 09:26 by SHELL Plunkett) Household Members: Spouse Housing: House Do you presently have visiting nurse or other home services: No Alcohol intake: current Alcohol intake frequency: a few times a week Alcohol type: hard liquor Patient Tobacco Use Status: Current everyday Tobacco user Tobacco use type: Cigarette Cigarette Packs Per Day: 0.5 Cigarettes Per Day: 10.0 Years Smoked: 10 Second Hand Smoke Exposure: No Substance Use Type: Marijuana and Other Advance Directives Date on File: 11/16/20 service: No Current occupational status: employed Cognitive needs: No Hearing needs: No Vision needs: No Questionnaire PHQ-9 Over the last 2 weeks, how often have you been bothered by any of the following problems? 1. Little interest or pleasure in doing things: not at all 2. Feeling down, depressed, or hopeless: not at all 3. Trouble falling or staying asleep, or sleeping too much: not at all 4. Feeling tired or having little energy: not at all 5. Poor appetite or overeating: not at all 6. Feeling bad about yourself - or that you are a failure or have let yourself or your family down: not at all 7. Trouble concentrating on things, such as reading the newspaper or watching television: not at all 8. Moving or speaking so slowly that other people could have noticed. Or the opposite - being so fidgety or restless that you have been moving around a lot more than usual: not at all 9. Thoughts that you would be better off or of hurting yourself in some way: not at all Total score: 0 Depression Screening Interpretation: Negative Depression Screening Done: Yes 10482 - PHQ-9 Billing: Yes Source: Developed by Drs. Georgi Mckinney, Lelia Villatoro, Neftali Napoles and colleagues, with an educational ralph from [employer]. AUDIT C Alcohol Use Questionnaire (AUDIT-C) 1. How often do you have a drink containing alcohol?: 2-3 times a week 2. How many drinks containing alcohol do you have on a typical day when you are drinking?: 5 or 6 3. How often do you have six or more drinks on one occasion?: Never Total Score: 5 ALLY-7 AMB Questionnaire ALLY-7 Date ALLY - 7 assessed: 02/06/23 Feeling nervous, anxious, or on edge: 0 = Not at all Not being able to stop or control worryin = Not at all Worrying too much about different things: 0 = Not at all Trouble relaxin = Not at all Being so restless that it is hard to sit still: 0 = Not at all Becoming easily annoyed or irritable: 0 = Not at all Feeling afraid as if something awful might happen: 0 = Not at all Total ALLY-7 score (0-4 normal; 5-9 mild; 10-14 moderate; 15-21 severe): 0 Source: Developed by Drs. Georgi Mckinney, Lelia Villatoro, Neftali Napoles and colleagues, with an educational ralph from [employer]. ALLY-7 Assessment Billing ALLY-7 Assessment Tool: ALLY-7 Assessment 65736 Review of Systems Const Denies chills, Denies fatigue, Denies fever(s) and Denies poor appetite Eyes Denies no additional complaints ENT Reports Normal hearing present Card Denies chest pain, Denies syncope, Denies rapid heart rate and Denies dyspnea Resp Denies cough and Denies dyspnea GI Denies change in stool character, Denies constipation, Denies diarrhea, Denies nausea and Denies vomiting Denies urinary frequency, Denies dysuria and Denies urinary urgency Neuro Reports Normal hearing present, Denies confusion and Denies syncope Psych Denies confusion Endo Denies fatigue Physical exam (Primary Care) Vital Signs: Last Vital Signs Pulse 78 02/06/23 09:13 BP 130/90 H 02/06/23 09:13 Pulse Ox 99 02/06/23 09:13 Oxygen Delivery Method Room Air 02/06/23 09:13 BMI result Body Mass Index 19.6 Tobacco/Smoking Status: Tobacco use Status Patient Tobacco Use Status Current everyday Tobacco 02/06/23 09:18 Tobacco use type Cigarette 02/06/23 09:18 PHQ-9: PHQ-9 Score PHQ-9: Total score 0 02/06/23 09:18 Depression Screening Interpretation: Negative Const General: No confusion Orientation/consciousness: No confusion HENMT Head: Yes normocephalic and Yes atraumatic Ears: external ears normal and TM's normal bilaterally General nose exam: Normal external nose present and Normal nasal mucous membranes and turbinates present Face and sinus: Yes normal facial exam and Yes sinuses nontender Mouth: moist mucous membranes Throat: Yes tonsils normal Eyes Conjunctivae: conjunctivae normal Sclerae: sclerae normal Pupils: Equal, round and reactive pupils present and Pupils normal by confrontation EOM: EOMs intact bilaterally Direct Ophthalmoscopy: normal light reflex Neck Neck: Yes no lymphadenopathy and Yes supple Thyroid: Thyroid normal Chest Chest palpation & inspection: normal inspection of the chest Resp Effort & Inspection: normal respiratory effort Auscultation: clear to auscultation bilaterally, no crackles, no rhonchi and no wheezes Cardio Rate: regular rate Rhythm: regular rhythm Peripheral pulses: radial pulses present and dorsalis pedis present GI Inspection: Yes normal to inspection Palpation (GI): Soft to palpation, nontender and No hepatosplenomegaly present Auscultation: normoactive bowel sounds Skin General skin exam: no rashes or lesions noted Neuro General: No confusion Cranial nerves: Yes Equal, round and reactive pupils present and Yes Normal hearing present Cognition (Neuro): normal cognition Gait exam (Neuro): Normal gait present Motor exam (neuro): 5/5 motor strength present throughout Deep tendon reflexes (DTR's): Right brachioradialis reflex intensity grade: 2+, Left brachioradialis reflex intensity grade: 2+, Right patellar reflex intensity grade: 2+ and Left patellar reflex intensity grade: 2+ Extrem General: No edema Assessment and Plan Assessment & Plan (1) Physical exam, annual: Code(s): Z00.00 - Encounter for general adult medical examination without abnormal findings Plan: Follow up in 1 year. Fasting labs ordered. Orders: Orders Complete Blood Count Auto Diff Today Z13.0 - Encounter for screening for diseases of the blood and blood-forming organs and certain disorders involving the immune mechanism Lipid Panel Today Z13.220 - Encounter for screening for lipoid disorders Comprehensive [place]. Panel Fast Today Z13.1 - Encounter for screening for diabetes mellitus TSH reflex Free T4 Today Z13.29 - Encounter for screening for other suspected endocrine disorder Vitamin D 25-OH Total Today Z13.21 - Encounter for screening for nutritional disorder Referrals [facility] Referral Z12.4 - Encounter for screening for malignant neoplasm of cervix Coding Level of Care Code New Pt Prev Care 18-39yr(03316 Diagnoses Physical exam, annual Z00.00 Additional Codes ALLY-7 Assessment Billing - ALLY-7 Assessment Tool: ALLY-7 Assessment 12797 ([id number])
== END 2023-02-06 09:33 | disposition home or self-care (01) ==
PROVIDERS: PCP Family Medicine; Visit Provider Nurse Practitioner Family
DX: Z00.00 Encounter for general adult medical examination without abnormal findings (principal)
CPT/HCPCS: 99385

== ENCOUNTER 2023-07-15 12:55 | Outpatient (REF) | payer OTHER, SELFPAY ==
[2023-07-16 11:24] LABS: CT PCR NOT DETECTED (Not Detect.); NG PCR NOT DETECTED (Not Detect.)
[2023-07-16 13:53] LABS: BV Int Neg Control Negative (Negative); BV Int Pos Control Positive (Positive)
[2023-07-22 12:38] LABS: HPV mRNA E6/E7 rflx Not Detected (Not Detected)
== END 2023-07-15 12:56 | disposition home or self-care (01) ==
LOC: HO.LNP 12:55
PROVIDERS: PCP Family Medicine; Visit Provider Advanced Practice Midwife
DX: Z01.419 Encounter for gynecological examination (general) (routine) without abnormal findings (principal); N93.0 Postcoital and contact bleeding; N89.8 Other specified noninflammatory disorders of vagina; N63.0 Unspecified lump in unspecified breast; T19.2XXA Foreign body in vulva and vagina, initial encounter; W44.8XXA Other foreign body entering into or through a natural orifice, initial encounter; F17.210 Nicotine dependence, cigarettes, uncomplicated; F11.10 Opioid abuse, uncomplicated; F10.10 Alcohol abuse, uncomplicated; Z11.3 Encounter for screening for infections with a predominantly sexual mode of transmission; Z79.899 Other long term (current) drug therapy
CPT/HCPCS: 0353U; 87480; 87510; 87624; 87660; 88142; 99385

== ENCOUNTER 2023-07-15 12:55 | Outpatient (AMB) | payer OTHER, SELFPAY ==
[2023-07-15 13:02] VITALS: BP 142/88; BMI 19.4
--- NOTE | 2023-07-15 13:02 | MHC.OFFVIS ---
Intake Vital Signs 07/15/23 13:02 Height 5 ft 4 in Weight 113 lb BMI 19.4 BP 142/88 H Blood Pressure Location Rt brachial Position Sitting Intake Visit Reasons: New patient Annual Allergies Penicillins [PENICILLINS] Allergy (Intermediate, Verified 07/15/23 13:02) HIVES Medication List - Last Reconciled 07/15/23 by Nenita Rincon CNM buprenorphine-naloxone 8-2 mg (Suboxone) 1 strip sublingual DAILY Is last menstrual period known: Yes (06/30/23) Last menstrual period: 06/30/23 HPI New patient Annual HPI Details Patient is here for postmaster annual exam it has been a few years since she is seen anybody she used to see Dr. Zayas several years ago. She has been bleeding with intercourse for some years. She does not contraceptive because they were trying to get for few years and it nothing happened so they gave up.. On questioning she admits to being a smoker and she has thought about quitting she has patches. Her partner also smokes she does not smoke at work but only at home. 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 She is on Suboxone and is considering weaning she has been on it for years and has been clean for 7 years. [facility] Medical History (Updated 07/15/23 @ 15:59 by Nenita Rincon CNM) Opioid abuse Alcohol abuse Pancreatitis Surgical History [place] teeth extracted Hx of tonsillectomy Family History Mother No problems noted. Father Alcoholic Sister Hypertension Other No family history of coronary artery disease Social History Household Members: Spouse Housing: House Do you presently have visiting nurse or other home services: No Alcohol intake: current Alcohol intake frequency: a few times a week Alcohol type: hard liquor Patient Tobacco Use Status: Current everyday Tobacco user Tobacco use type: Cigarette Cigarette Packs Per Day: 0.5 Cigarettes Per Day: 10.0 Years Smoked: 10 Second Hand Smoke Exposure: No Substance Use Type: Marijuana and Other Advance Directives Date on File: 11/16/20 service: No Current occupational status: employed Cognitive needs: No Hearing needs: No Vision needs: No Female Reproductive History Menstrual Age of Menarche: 13 Duration of menses: 3-5 days Date of last menstrual period: 06/30/23 control method: none Total pregnancies: 0 Physical Exam Vital Signs: Last Vital Signs BP 142/88 H 07/15/23 13:02 BMI result Body Mass Index 19.4 Const Other: Patient's voice somewhat hoarse consistent with smoking. She admits to half pack per day. General: healthy appearing, comfortable, no acute distress, well developed and alert Nutritional Appearance: average body habitus Orientation/consciousness: patient oriented x3 Limitations: no limitations HEENT Head: Yes normocephalic Neck Neck: Yes normal visual inspection Chest Other: Irregular nodularity at 01:00 o'clock on left breast and from 1-3 o'clock on right breast Chest palpation & inspection: normal inspection of the chest Breast/axilla inspection: normal inspection of the breasts and normal inspection of the axillae Breast/axilla palpation: normal palpation of the breasts and normal palpation of the axillae Resp Effort & Inspection: normal respiratory effort GI Inspection: Yes normal to inspection, No Abdominal wall edema and No distended Palpation (GI): Soft to palpation and nontender Other: Speculum exam initially difficult to find the cervix vagina pink and moist with pinkish beige discharge slight soft swelling consistent with some cystic structure on right vaginal wall bulging and nontender. Cervix difficult to find but was posterior nulliparous. Being deflected to right-hand side by a tampon that had been left there for about 2 weeks. removed. Cervix mobile nontender uterus mobile anteverted mobile nontender adnexa nontender not enlarged. Muscle General: Yes bladder normal to palpation External Female Exam: normal external appearance and normal appearance of the urethra Speculum Exam - Vagina: normal appearance of the vagina, normal palpation and normal vaginal discharge Speculum Exam - Cervix: normal appearance of the cervix, normal palpation and nontender Bimanual exam- vagina & uterus: normal bimanual exam, normal palpation, uterine size normal, bladder normal to palpation, consistency normal, normal palpation, uterine mobility normal, uterine shape normal, No Cervical tenderness present, non-tender and no cervical motion tenderness Bimanual Exam- Adnexa, other: normal adnexae, no masses, normal and No adnexal tenderness Neuro General: patient oriented x3 Results AMB Urinalysis Dipstick UR Leukocytes Negative Last Edit by Patience Silva MA on 07/15/23 13:22 UR Nitrite Negative Last Edit by Patience Silva MA on 07/15/23 13:22 UR Urobilinogen Last Edit by Patience Silva MA on 07/15/23 13:22 UR Protein 100 Last Edit by Patience Silva MA on 07/15/23 13:22 UR Ph 5.5 Last Edit by Patience Silva MA on 07/15/23 13:22 UR Blood Small Last Edit by Patience Silva MA on 07/15/23 13:22 UR Specific Page 1.030 Last Edit by Patience Silva MA on 07/15/23 13:22 UR Ketone Negative Last Edit by Patience Silva MA on 07/15/23 13:22 UR Bilirubin Last Edit by Patience Silva MA on 07/15/23 13:22 UR Glucose Negative Last Edit by Patience Silva MA on 07/15/23 13:22 Results Reviewed Results Reviewed: Laboratory Last Values Urine pH (Clinic) 5.5 07/15/23 13:15 Specific Page (Clinic) 1.030 07/15/23 13:15 Ur Protein (Clinic) 100 07/15/23 13:15 Ur Ketones (Clinic) Negative 07/15/23 13:15 Urine Blood (Clinic) Small 07/15/23 13:15 Urine Nitrite Negative 07/15/23 13:15 Leukocyte Esterase (Clinic) Negative 07/15/23 13:15 Urine Glucose (Clinic) Negative 07/15/23 13:15 Assessment & Plan Assessment & Plan (1) Well woman exam with routine gynecological exam: Code(s): Z01.419 - Encounter for gynecological examination (general) (routine) without abnormal findings (2) Bleeding after intercourse: Comment: for a few years Code(s): N93.0 - Postcoital and contact bleeding (3) Cigarette smoker motivated to quit: Code(s): F17.210 - Nicotine dependence, cigarettes, uncomplicated (4) Vaginal wall cyst: Code(s): N89.8 - Other specified noninflammatory disorders of vagina (5) Opioid abuse: Comment: Follows with [facility] on Suboxone Code(s): F11.10 - Opioid abuse, uncomplicated (6) Breast mass in female: Comment: Left side 1:00 to 3:00, right side 01:00 o'clock. Code(s): N63.0 - Unspecified lump in unspecified breast (7) Retained tampon: Comment: Removed. Code(s): T19.2XXA - Foreign body in vulva and vagina, initial encounter; W44.8XXA - Other foreign body entering into or through a natural orifice, initial encounter Qualifiers: Encounter type: initial encounter Qualified Code(s): T19.2XXA - Foreign body in vulva and vagina, initial encounter; W44.8XXA - Other foreign body entering into or through a natural orifice, initial encounter Plan -----Discussed in this visit the following: healthy balanced diet, regular and consistent exercise, getting recommended health screens, doing the best she can for her particular health concerns, kegel exercises, pap smear screening and followup recommendations, mammography screening and SBE, normal changes in cycles in her life stage--- . Tampon was easily removed with ring forceps. Patient was mortiified that it was in there. Patient was reassured that this is a very common experience for many women and occurs often. Consider just rinsing was plain water in the shower this evening. Cultures and Pap were done she had no need for HIV testing or other testing. I am ordering an ultrasound to assess for any issues that could explain her bleeding after intercourse no cervical polyp was seen. She has been told that the vaginal wall cyst that she has is a very common thing and she does not need to do anything about it unless it bothers her and it certainly does not bother her but I am ordering of the ultrasound and it may be assessed on ultrasound as well. We will have a visit after the ultrasound. Discussed smoking cessation and she is planning some day soon to start weaning off the Suboxone she has been on 8 mg for quite a while she is managed to [facility]. I encouraged her in both but recommend not doing both at the same time to avoid putting increased stress on herself. Bilateral mammogram and ultrasounds ordered. If there is anything of concern then she would need a breast surgery referral but suspicion is low so it is not been placed at this time. Breasts feel consistent with fibrocystic changes. Orders: Orders Bacterial Vaginosis Panel Today Z01.419 - Encounter for gynecological examination (general) (routine) without abnormal findings CT NG by PCR Today Z01.419 - Encounter for gynecological examination (general) (routine) without abnormal findings US pelvic and transvaginal Today N89.8 - Other specified noninflammatory disorders of vagina Pap Smear Today Z01.419 - Encounter for gynecological examination (general) (routine) without abnormal findings AMB Urinalysis Dipstick Today Z13.9 - Encounter for screening, unspecified MM tomosynthesis diagnostic BI Today N63.0 - Unspecified lump in unspecified breast US breast LT complete Today N63.0 - Unspecified lump in unspecified breast US breast RT complete Today N63.0 - Unspecified lump in unspecified breast Coding Level of Care Code New Pt Prev Care 18-39yr(08850 Diagnoses Well woman exam with routine gynecological exam Z01.419 Bleeding after intercourse N93.0 Cigarette smoker motivated to quit F17.210 Vaginal wall cyst N89.8 Opioid abuse F11.10 Breast mass in female N63.0 Retained tampon, initial encounter T19.2XXA; W44.8XXA Encounter type: initial encounter
== END 2023-07-15 14:02 | disposition home or self-care (01) ==
PROVIDERS: PCP Family Medicine; Visit Provider Advanced Practice Midwife
DX: Z01.419 Encounter for gynecological examination (general) (routine) without abnormal findings (principal); N93.0 Postcoital and contact bleeding; F17.210 Nicotine dependence, cigarettes, uncomplicated; N89.8 Other specified noninflammatory disorders of vagina; F11.10 Opioid abuse, uncomplicated; N63.0 Unspecified lump in unspecified breast; T19.2XXA Foreign body in vulva and vagina, initial encounter; W44.8XXA Other foreign body entering into or through a natural orifice, initial encounter
CPT/HCPCS: 99385

== ENCOUNTER 2023-08-04 12:50 | Outpatient (REF) | payer OTHER, SELFPAY ==
--- NOTE | ~2023-08-04 | US_ITS ---
EXAMINATION: MM DIAGNOSTIC DIGITAL BREAST TOMOSYNTHESIS, BILATERAL US BREAST LIMITED, BILATERAL MAMMOGRAPHY: CLINICAL INFORMATION: 37-year-old female complaining of palpable lump left side 1:00 to 3:00 axis, and palpable lump right side 1:00 axis. Patient states palpable abnormalities present x6 months. Baseline mammogram. COMPARISON: Mammography: None. Baseline exam. TECHNIQUE: Digital breast tomosynthesis is performed in both the craniocaudal and mediolateral oblique views along with computer-aided detection (CAD). Synthesized 2D images are generated from the tomosynthesis. In addition, full-field 3-D bilateral medial lateral views were also obtained. FINDINGS: The breasts are extremely dense, which lowers the sensitivity of mammography (ACR BI-RADS breast composition Category d). There are no suspicious masses, suspicious grouped calcifications, or areas of architectural distortion in either breast which can be distinguished from the extremely dense and nodular breast parenchyma. No definite correlate to the palpable foci in the right breast 1-3 o'clock, or left breast 1:00. No axillary or skin abnormalities. ULTRASOUND: CLINICAL INFORMATION: As above. COMPARISON: None TECHNIQUE: Targeted sonographic evaluation was performed using a high frequency linear transducer. Selected archived documentation. FINDINGS: RIGHT BREAST: There is extremely dense fibroglandular tissue. No suspicious mass is seen. There is no pathologic acoustic shadowing. There is no sonographic correlate to the focus of palpable concern in the 1-3 o'clock axis. LEFT BREAST: There is extremely dense fibroglandular tissue. No suspicious mass is seen. There is no pathologic acoustic shadowing. There is no sonographic correlate to the focus of palpable concern in the 1:00 axis. US/US breast BI limited mamm only IMPRESSION: -There are no findings suspicious for malignancy in either breast. -There is extremely dense breast tissue which is also somewhat nodular, limiting mammography. No definite sonographic or mammographic abnormality in either breast to account for the bilateral palpable foci of concern. Recommend clinical management. OVERALL ASSESSMENT: Mammography: BI-RADS 1 - Negative Ultrasound: BI-RADS 1 - Negative RECOMMENDATION: 1. Patient should be managed based on the clinical impression. Decision to proceed with biopsy should be based on clinical grounds and degree of clinical concern. 2. Otherwise, routine annual screening mammography at age 41. This patient's information was entered into a reminder system with a target due date for their next mammogram.
== END 2023-08-04 12:51 | disposition home or self-care (01) ==
LOC: HO.MAMMO 12:50
PROVIDERS: PCP Nurse Practitioner Family; Visit Provider Advanced Practice Midwife
DX: N63.25 Unspecified lump in the left breast, overlapping quadrants (principal)
CPT/HCPCS: 76642; 77062; 77066

== ENCOUNTER → 2023-08-04 13:30 | Outpatient (BNV) | payer OTHER, SELFPAY | PROVIDERS: PCP Nurse Practitioner Family; Visit Provider Radiology Diagnostic Radiology | DX: N63.21 Unspecified lump in the left breast, upper outer quadrant (principal); N63.12 Unspecified lump in the right breast, upper inner quadrant | CPT/HCPCS: 76642; 77062; 77066 ==

== ENCOUNTER 2023-09-08 00:52 | Emergency (ER) | payer OTHER, SELFPAY ==
--- NOTE | ~2023-09-08 | CT_ITS ---
EXAMINATION: CT ABDOMEN AND PELVIS WITHOUT CONTRAST CLINICAL INFORMATION: Flank pain, abdominal pain COMPARISON: 12/17/2021 TECHNIQUE: Multidetector volumetric imaging was performed from the superior aspect of the liver through the pubic symphysis. Sagittal and coronal reformatted images were obtained on the technologist's workstation. This CT examination was performed using dose optimization techniques as appropriate, variously including the following: *Automated exposure control *Adjustment of mA and/or kV according to patient size (this includes techniques or standardized protocols for targeted exams where dose is matched to indication/reason for exam; i.e. extremities or head) *Use of iterative reconstruction technique DLP: 246 mGy-cm FINDINGS: LUNG BASES: The visualized lung bases are unremarkable. LIVER, GALLBLADDER, AND BILIARY TREE: The liver appears slightly enlarged and demonstrates hypoattenuation consistent with steatosis. No focal hepatic lesion or biliary ductal dilatation is identified. Gallbladder appears unremarkable. PANCREAS: Unremarkable. SPLEEN: Unremarkable. ADRENAL GLANDS: Unremarkable. KIDNEYS AND URETERS: No hydronephrosis or obstructing calculus bilaterally. BLADDER: Mildly distended with diffuse mural prominence. GASTROINTESTINAL TRACT: No evidence of bowel obstruction. There is a slightly thick-walled appearance of the proximal ascending colon with adjacent stranding, which may represent a mild colitis. Appendix appears near the upper limits of normal in size and contains hyperdense material diffusely, which may represent previously administered oral contrast; no appreciable surrounding inflammation. No free fluid or free air is seen. ABDOMINAL WALL: No significant hernia is appreciated. LYMPH NODES: No lymphadenopathy is seen, though assessment is limited in the absence of intravenous contrast. VASCULAR: Mild atherosclerotic calcification. PELVIC VISCERA: Grossly unremarkable. OSSEOUS STRUCTURES: Unremarkable. CT/CT abdomen pelvis wo IV con IMPRESSION: 1. Mildly thick-walled appearance of the proximal ascending colon with adjacent stranding, which may represent a mild colitis in the proper clinical setting. 2. Diffuse mural prominence of the urinary bladder, which could be secondary to underdistention or cystitis. 3. Hepatic steatosis.
[2023-09-08 01:04] VITALS: BP 176/122; PULSE 91; RESP 16; TEMP 36.8; O2SAT 98; BMI 19.7
[2023-09-08 01:47] VITALS: BP 155/116; PULSE 78; RESP 18; TEMP 36.7; O2SAT 99
[2023-09-08 01:48] LABS: MANUAL DIFF FLAG NO
[2023-09-08 01:49] LABS: Basophils Percent Auto 0.3 % (0-2); Eosinophils Absolute Auto 0.1 X10*3/uL (0.0-0.4); Eosinophils Percent Auto 0.7 % (0-4); Hemoglobin 15.9 g/dl (12.0-16.0); Imm Gran Abs Auto 0.02 X10*3/uL (0.00-0.03); Imm Gran Pct Auto 0.3 % (0.0-0.4); Lymphocytes Absolute Auto 0.9 X10*3/uL (1.2-4.9); Lymphocytes Percent Auto 12.6 % (20-40); Mean Corpuscular HGB Conc 35.3 g/dl (31.0-35.0); Mean Corpuscular Hemoglobin 35.8 pg (27.0-33.0); Mean Corpuscular Volume 101.4 fL (80.0-98.0); Mean Platelet Volume 10.1 fL (9.4-12.3); Monocytes Absolute Auto 0.6 X10*3/uL (0.1-1.2); Monocytes Percent Auto 8.5 % (2-11); Neutrophils Absolute Auto 5.7 x10*3/uL (2.0-8.3); Neutrophils Percent Auto 77.6 % (45-73); Platelet Count 193 X10*3/uL (160-400); Red Blood Count 4.44 X10*6/uL (4.20-5.50); Red Cell Distribution Width 12.8 % (11.0-16.0); White Blood Count 7.4 X10*3/uL (4.8-10.8)
[2023-09-08 01:51] LABS: Appearance Urine Cloudy; Color Urine Dark Yellow; Glucose Urine UA Negative (Negative); Leukocyte Esterase Urine Small (1+) (Negative); Nitrite Urine Negative (Negative); PH >= 9.0 (5.0-9.0); UMIC TRIGGER UACC YES; UPreg QC Valid YES; Urine Blood Negative (Negative); Urine Ketones 15 mg/dL (Negative); Urine Pregnancy NEGATIVE (NEGATIVE); Urine Protein 30 (1+) mg/dL (Neg-Trace)
[2023-09-08 01:54] LABS: Bacteria Urine 1+ (None Seen); Hyaline Casts Urine 0-2 /LPF (0-2); RBC Urine 0-2 /HPF (0-2); UACC Culture Trigger YES
--- NOTE | 2023-09-08 01:58 | ED_ITS ---
HPI - General Adult General Chief complaint: General Medical Stated complaint: vomiting/UTI Time Seen by Provider: 09/08/23 01:38 History of Present Illness HPI narrative: Patient is a 38-year-old female presents today with having abdominal pain. Nausea vomiting. Pain on urination. Does not think she is . Symptoms been ongoing for about a week. Positive history of EtOH. Have not drank alcohol for 4 days. Patient is from home. No coughing or congestion or upper respiratory symptoms. Patient from home drinks on a daily basis prior. Patient feel a little shaky. No other recreational drug use. Related Data Home Medications ?Medication ?Instructions ?Recorded ?Confirmed buprenorphine 8 mg-naloxone 2 mg 1 strip sublingual DAILY 12/17/21 07/15/23 sublingual film (Suboxone) Previous Rx's ?Medication ?Instructions ?Recorded metronidazole 0.75 % (37.5 mg/5 1 appful vaginal BEDTIME 5 days 07/21/23 gram) vaginal gel #70 grams lorazepam 1 mg tablet (Ativan) 1 mg PO TID PRN alcohol withdrawal 09/08/23 #10 tabs ondansetron 4 mg disintegrating 4 mg PO TID PRN nausea and 09/08/23 tablet vomiting 5 days #10 tabs Allergies Allergy/AdvReac Type Severity Reaction Status Date / Time Penicillins [PENICILLINS] Allergy Intermediate HIVES Verified 09/08/23 01:08 Review of Systems 2 Review of Systems: Positive flank plain positive nausea Yes all other systems are reviewed and are negative PMFSH Past Medical History Attestation statement: The following information was validated with the patient. Medical History Opioid abuse Alcohol abuse Pancreatitis Surgical History [place] teeth extracted Hx of tonsillectomy Family History Family History Mother No problems noted. Father Alcoholic Sister Hypertension Other No family history of coronary artery disease Social History Social History Household Members: Spouse Housing: House Do you presently have visiting nurse or other home services: No Alcohol intake: current Alcohol intake frequency: 3 or more drinks per day Alcohol type: beer, wine and hard liquor Patient Tobacco Use Status: Current everyday Tobacco user Tobacco use type: Cigarette Cigarette Packs Per Day: 0.5 Cigarettes Per Day: 10.0 Years Smoked: 10 Smoked in Last 30 Days: Yes Second Hand Smoke Exposure: No Use of substances other than those prescribed or required for medical reasons: Yes Substance Use Type: Marijuana Substance Use Frequency: Occasionally Advance Directives: Yes Advance Directives on File: Yes Advance Directives Date on File: 11/16/20 Do you have a plan to hurt others: No Plan Patient : No service: No Current occupational status: employed Cognitive needs: No Hearing needs: No Vision needs: No Physical Exam ED Vital Signs: Vital Signs - 24 hr 09/08/23 01:04 09/08/23 01:47 09/08/23 03:55 Temperature 98.3 F 98.0 F 98.1 F Pulse Rate 91 78 74 Respiratory Rate 16 18 16 Blood Pressure 176/122 H 155/116 H 119/98 H Pulse Oximetry 98 99 97 Oxygen Delivery Method Room Air Room Air Room Air BMI result Body Mass Index 19.7 Appearance: Alert. Oriented X3. No acute distress. Eyes: Pupils equal, round and reactive to light. ENT: Pharynx normal. Neck: Normal inspection. Neck supple. No lymph nodes noted. No crepitus CVS: Normal heart rate and rhythm. Pulses normal. Normal S1 and S2 Respiratory: No respiratory distress. Breath sounds normal. No Wheezing. No rales Abdomen: Soft and nontender. No rigidity. No distention. good BS x4 Skin: Skin warm and dry. Normal skin color. Normal skin turgor. Extremities: No lower extremity edema. Neurovascular intact to all extremities. No Lacerations. No Rash Neuro: Oriented X 3. No motor deficit. No sensory deficit. Moving all extermities. No slurred speech Medications Administered Discontinued Medications Generic Name Dose Route Start Last Admin Trade Name Freq PRN Reason Stop Dose Admin Sodium Chloride 1,000 mls @ 999 mls/hr 09/08/23 02:00 09/08/23 03:54 Ns IV 09/08/23 03:00 Infused .Q1H1M NESS Infusion Sodium Chloride 1,000 mls @ 999 mls/hr 09/08/23 02:00 09/08/23 03:54 Ns IV 09/08/23 03:00 Infused .Q1H1M NESS Infusion Ketorolac Tromethamine 30 mg 09/08/23 01:55 09/08/23 02:04 Ketorolac Tromethamine 30 Mg/Ml Vial IVPUSH 09/08/23 01:56 30 mg ONCE ONE Administration Lorazepam 1 mg 09/08/23 01:55 09/08/23 02:05 Lorazepam 2 Mg/Ml Vial IVPUSH 09/08/23 01:56 1 mg ONCE ONE Administration Ondansetron HCl 4 mg 09/08/23 01:55 09/08/23 02:04 Ondansetron Hcl 4 Mg/2 Ml Vial IVPUSH 09/08/23 01:56 4 mg ONCE ONE Administration Medical Decision Making Medical Decision Making [facility] Narrative: Patient presented today with having nausea vomiting possible urinary tract infection. Patient's urine grossly did not appear infected. White count is normal. There is no significant shift. Patient's electrolytes showed mildly elevated AST and ALT. Patient's AST is 120, ALT is 70. This is consistent with alcohol use. Her test is negative no related issue COVID flu RSV all negative. CT scan of the abdomen was done. I reviewed radiology's interpretation there is question colitis. There has no evidence of obstruction abscess perforation no evidence for appendicitis. Will discharge patient home. Will give patient Ativan for withdrawal Zofran for nausea. Recommend for patient to go to detox. A list of detox was provided to patient. In stable condition. Differential Diagnosis Differential Diagnoses: The differential diagnosis associated with the presentation includes Pyelonephritis, alcohol withdrawal, viral infection, colitis Admission/Observation Consideration of admission/observation: Escalation of care including admission/observation considered Lab Data [facility] Lab Attestation statement: I reviewed the patient's lab results. 09/08/23 01:41 09/08/23 01:41 Labs: Lab Results 09/08/23 Range/Units 01:41 WBC 7.4 (4.8-10.8) X10*3/uL RBC 4.44 (4.20-5.50) X10*6/uL Hgb 15.9 (12.0-16.0) g/dl Hct 45.0 (37.0-47.0) % MCV 101.4 H (80.0-98.0) fL MCH 35.8 H (27.0-33.0) pg MCHC 35.3 H (31.0-35.0) g/dl RDW 12.8 (11.0-16.0) % Plt Count 193 D (160-400) X10*3/uL MPV 10.1 (9.4-12.3) fL Immature Gran % (Auto) 0.3 (0.0-0.4) % Neut % (Auto) 77.6 H (45-73) % Lymph % (Auto) 12.6 L (20-40) % [place] % (Auto) 8.5 (2-11) % Eos % (Auto) 0.7 (0-4) % Baso % (Auto) 0.3 (0-2) % Lymph # (Auto) 0.9 L (1.2-4.9) X10*3/uL [place] # (Auto) 0.6 (0.1-1.2) X10*3/uL Eos # (Auto) 0.1 (0.0-0.4) X10*3/uL Baso # (Auto) 0.0 (0.0-0.2) X10*3/uL Abs Immat Gran (auto) 0.02 (0.00-0.03) X10*3/uL Absolute Neuts (auto) 5.7 (2.0-8.3) x10*3/uL Absolute Nucleated RBC 0.000 (0.0-0.012) X10*3/uL Nucleated RBC % (auto) 0.0 (0.0-0.2) /100WBC Sodium 141 (135-145) mmol/L Potassium 3.3 (3.3-5.1) mmol/L Chloride 97 (96-108) mmol/L Carbon Dioxide 29 (22-29) mmol/L Anion Gap 18 (12-20) BUN 9 (9-16) mg/dL Creatinine 0.74 (0.5-1.4) mg/dL Estim Creat Clear Calc 85.7 Estimated GFR > 60 Random Glucose 109 (60-115) mg/dL Calcium 10.0 D (8.4-10.2) mg/dL Total Bilirubin 1.4 H (0.0-1.0) mg/dL AST 120 H (5-31) U/L ALT 70 H (0-31) U/L Alkaline Phosphatase 104 (39-117) U/L Total Protein 7.9 (6.5-8.0) g/dL Albumin 4.6 (3.5-5.0) g/dL Lipase 51 (8-78) U/L Urine Color Dark Yellow Urine Appearance Cloudy Urine pH >= 9.0 (5.0-9.0) Ur Specific [place] 1.020 (1.005-1.025) Urine Protein 30 (1+) H (Neg-Trace) mg/dL Urine Glucose (UA) Negative (Negative) mg/dL Urine Ketones 15 (Negative) mg/dL Urine Blood Negative (Negative) Urine Nitrite Negative (Negative) Ur Leukocyte Esterase Small (1+) H (Negative) Urine RBC 0-2 (0-2) /HPF Urine WBC 11-20 H (0-5) /HPF Ur Squamous Epith Cells 6-10 (0-2) /HPF Urine Bacteria 1+ (None Seen) Hyaline Casts 0-2 (0-2) /LPF Urine Test NEGATIVE (NEGATIVE) Ethyl Alcohol < 10 mg/dL COVID-19 (MARCELLA) Negative (Negative) COVID-19 Clin Com See Note Influenza Type A (JATINDER) Negative (Negative) Influenza Type B (JATINDER) Negative (Negative) Influenza A & B Note See Note Independent Interpretation I performed an independent interpretation of an: CT Scan (Grossly no obstruction noted) Radiology Impression Discussion of test interpretation with radiology: I have reviewed the radiologist's reading. External Record Review External record reviewed: Inpatient record Chronic Conditions History of alcohol use. Social Determinants Patient?s care significantly limited by Social Determinants of Health including: Alcoholism and drug addiction in family and Problems related to primary support group Discharge Plan Discharge Clinical Impression: Alcohol withdrawal Patient Disposition: Home, Self-Care Instructions: Acute Nausea and Vomiting (ED), Alcohol Withdrawal (DC) Additional Instructions: Please go to detox. Prescriptions: New ondansetron 4 mg tablet,disintegrating 4 mg PO TID PRN (Reason: nausea and vomiting) 5 Days Qty: 10 0RF lorazepam [Ativan] 1 mg tablet 1 mg PO TID MDD 3 PRN (Reason: alcohol withdrawal) Qty: 10 0RF No Action metronidazole 0.75 % (37.5mg/5 gram) gel 1 appful vaginal BEDTIME 5 Days Qty: 70 0RF buprenorphine-naloxone [Suboxone] 8-2 mg film 1 strip sublingual DAILY Referrals: Physician,Unknown J [Primary Care Provider] - 09/10/23 Print Language: Moroccan
[2023-09-08] MEDS: ondansetron HCL 4 MG/2 ML VIAL IVPUSH (02:04)
[2023-09-08] MEDS: Ketorolac Tromethamine 30 MG/ML VIAL IVPUSH (02:04)
[2023-09-08 02:05] LABS: Alanine Aminotransferase 70 U/L (0-31); Albumin Level 4.6 g/dL (3.5-5.0); Alkaline Phosphatase 104 U/L (39-117); Anion Gap 18 (12-20); Aspartate Amino Transferase 120 U/L (5-31); Bilirubin Total 1.4 mg/dL (0.0-1.0); Blood Urea Nitrogen 9 mg/dL (9-16); Carbon Dioxide 29 mmol/L (22-29); Chloride 97 mmol/L (96-108); Creatinine Clr Calc Pharmacy 85.7; Estimated Glomerular Filt Rate > 60; Ethanol < 10 mg/dL; Glucose Random 109 mg/dL (60-115); Lipase 51 U/L (8-78); Potassium 3.3 mmol/L (3.3-5.1); Sodium 141 mmol/L (135-145); Total Protein 7.9 g/dL (6.5-8.0)
[2023-09-08] MEDS: LORazepam 2 MG/ML VIAL 1 MG IVPUSH (02:05)
[2023-09-08] MEDS: 0.9 % Sodium Chloride 1,000 ML 999 ML IV ×2 (02:06)
[2023-09-08 02:11] LABS: COVID-19 Test Negative (Negative); IDNOW Serial# 08D9AD1C; IDNOW Serial# 152EDE1D; Influenza A Negative (Negative); Influenza B2 Negative (Negative)
--- OUTSIDE RECORDS SUMMARY | 2023-09-08 02:28 | XMS_ITS | Continuity of Care Document ---
Author Organization [facility] Address [address] [place] [id number]- Care Team Providers Care Chronic Specialist Name Role Phone Not on Staff, PCP Primary Care Physician Unavail able Encounter [facility] Date(s): 05/21/19 - 05/21/[address] [address]- [facility] Discharge Disposition: A-D/C Home Attending Physician: Claude Cueva MD Admitting Physician: Claude Cueva MD Referring Physician: Not on Staff, Referring MD Allergies, Adverse Reactions, Alerts Substance Reaction Severity Status penicillin mouth sores Active Immunizations Given and Recorded Vaccine Date Status Refusal Reason Human Papillomavirus Vaccine 08/03/07 Given Human Papillomavirus Vaccine 1 02/19/07 Given Human Papillomavirus Vaccine 12/15/06 Given 1Admin Note: # 2 Medications doxycycline monohydrate 100 mg oral tablet 1 tablet = 100 mg, By Mouth, 2 times a day, for 10 days, # 20 tablet, 0 Refills, Acute 05/31/19 12:55:00 EST, 05/21/19 12:55:00 EST, Tablet, [id number], 163, cm, 05/21/19 10:27:00 EST, Height, 52.3, kg, 05/21/19 10:27:00 EST, Dry Weight Start Date: 05/21/19 Stop Date: 05/31/19 Status: Ordered Suboxone 8 mg-2 mg Sublingual Film 1 film, Sublingual, Daily, 0 Refills, Maintenance, 05/21/19 10:31:00 EST Start Date: 05/21/19 Status: Ordered Results Radiology Reports * Exam Date Time Procedure Performing Provider Status 05/21/19 12:05 PM Chest 2 Views Frontal and Lat Slatter y , Tracie A; Auth (Verified) Notes: (Chest 2 Views Frontal and Lat) Reason For Exam: Shortness of Breath RESULT: Chest 2 Views Frontal and Lat Chest 2 Views Frontal and Lat Reason: Shortness of Breath; Clinical Question(s): Pneumonia; Hx of Present Illness: Generalized body aches X2 weeks, improving slightly then becoming worse last 2 days. Mild nausea. Cough with yellowish sputum. No fever. Significant other with same sx, diagnosed with bronchitis. COMPARISON: None. FINDINGS: LINES AND TUBES: None. LUNGS AND PLEURA: Interstitial markings are prominent throughout in spite of normal vascularity, suggesting an atypical infectious process. Additionally, there is an area of ill-defined airspace opacity in the medial right lung base suggestive of an early bacterial pneumonia. Indistinct opacity in the lateral right upper lung may represent an area of developing consolidation as well. HEART, MEDIASTINUM AND SHANA: Heart is normal in size. Normal mediastinal and hilar contour. BONES AND SOFT TISSUES: No acute abnormality. IMPRESSION: 1. Ill-defined airspace opacity in the medial right lung base suggestive of an early bacterial pneumonia. 2. Background prominent interstitial markings with normal vascularity suggestive of an underlying atypical infectious process such as viral pneumonia. WSN: [id number] Dictated By: Marco Tavares MD Dictated Date/Time: 05/21/19 12:28 p Reviewed By: Marco Tavares MD Signed By: Marco Tavares MD Signed Date/Time: 05/21/19 12:28 pm Transcribed By: SARAH Transcribed Date/Time: 05/21/19 12:25 pm Vital Signs Most recent to oldest [Reference Range]: 1 Height 163 cm (05/21/19 10:27 AM) Weight 52.3 kg (05/21/19 10:27 AM) Oxygen Saturation [94-100 %] 99 % (05/21/19 10:27 AM) Pulse Rate [55-90 bpm] 108 bpm *H* (05/21/19 10:27 AM) Blood Pressure [90-138/55-84 mm Hg] 128/ 77mm Hg (05/21/19 10:27 AM) Respiratory Rate [16-30 br/min] 16 br/mi n (05/21/19 10:27 AM) Temperature [96.8-100.4 DegF] 100.3 DegF (05/21/19 10:27 AM) Mode of Delivery (Oxygen) Room air (05/21/19 10:27 AM) Blood pressure sites Arm, right (05/21/19 10:27 AM) Temperature Route Temporal (05/21/19 10:27 AM) Dry Weight 52.3 kg (05/21/19 10:27 AM) Dry Weight Obtained Via Standing scale (05/21/19 10:27 AM) Social History Social History Type Response Smoking Status 10 or more cigarette s (1/2 pack or more)/day in last 30 days entered on: 05/21/19 Sex
--- OUTSIDE RECORDS SUMMARY | 2023-09-08 02:28 | XMS_ITS | Continuity of Care Document ---
Author Organization [facility] Address [address] [place] [id number]- Care Team Providers Care Lamp Shade Joiner Name Role Phone Not on Staff, PCP Primary Care Physician Unavail able Encounter [facility] Date(s): 07/11/20 - 07/12/[address] [address]- Encounter Diagnosis Chest wall pain(Final) - 07/11/20 Discharge Disposition: A-D/C Home Attending Physician: Vinod Garrison MD Admitting Physician: Vinod Garrison MD Referring Physician: Not on Staff, Referring MD Allergies, Adverse Reactions, Alerts Substance Reaction Severity Status penicillin Mouth ulcer mouth sores Active Immunizations Given and Recorded Vaccine Date Status Refusal Reason Human Papillomavirus Vaccine 08/03/07 Given Human Papillomavirus Vaccine 1 02/19/07 Given Human Papillomavirus Vaccine 12/15/06 Given 1Admin Note: # 2 Medications acetaminophen 325 mg oral tablet 650 mg, By Mouth, 4 times a day, PRN, for 14 days, # 112 tablet, Refills 0, Tot. Refills 0, Acute 07/26/20 13:43:00 EDT, Pain , Mild, 07/12/20 13:43:00 EDT, [facility] Partial fill upon patient request... Start Date: 07/12/20 Stop Date: 07/26/20 Status: Ordered bisacodyl 10 mg rectal suppository 1 supp = 10 mg, Rectally, Daily, PRN Constipation, for 3 days, # 3 supp, 0 Refills, Acute 07/15/20 13:43:00 EDT, 07/12/20 13:43:00 EDT, Suppository, [facility], Partial fill upon patient request if the prescription is for a schedule II o... Start Date: 07/12/20 Stop Date: 07/15/20 Status: Ordered gabapentin 100 mg oral capsule 100 mg, 1, capsule, By Mouth, 3 times a day, # 90 capsule, Refills 0, Tot. Refills 0, Maintenance, 07/12/20 13:44:00 EDT, Route to Pharmacy Electronically, [facility], Partial fill uponpatient request if the prescription is for a schedu... Start Date: 07/12/20 Stop Date: 08/11/20 Status: Ordered gabapentin 100 mg oral capsule 100 mg, Capsule, By Mouth, 07/12/20 9:00:00 EDT Start Date: 07/12/20 Stop Date: 07/12/20 Status: Completed ibuprofen 800 mg oral tablet 800 mg, 1, tablet, By Mouth, Every 8 hours, for 14 days, # 42 tablet, Refills 0, Tot. Refills 0, Acute 07/26/20 13:44:00 EDT, 07/12/20 13:44:00 EDT, Route to Pharmacy Electronically, [facility], Partial fill upon patient request if the p... Start Date: 07/12/20 Stop Date: 07/26/20 Status: Ordered lidocaine 5% topical film 1 patch, Topically, Daily, # 30 patch, 0 Refills, Maintenance, 07/12/20 13:44:00 EDT, Patch, [facility], Partial fill upon patient request if the prescription is for a schedule II opioid drug., 1 patch Topically Daily,x30 days Start Date: 07/12/20 Stop Date: 08/11/20 Status: Ordered oxyCODONE 5 mg oral tablet 5 mg, 1, tablet, By Mouth, Every 6 hours, PRN, for 3 days, # 12 tablet, Refills 0, Tot. Refills 0, Acute 07/15/20 12:58:00 EDT, Pain , Severe, 07/12/20 12:58:00 EDT, Print Requisition, Partial fill upon patient request if the prescription is for a maureen... Start Date: 07/12/20 Stop Date: 07/15/20 Status: Ordered oxyCODONE 5 mg oral tablet 5 mg, 1, tablet, By Mouth, Every 6 hours, PRN, for 5 days, # 20 tablet, Refills 0, Tot. Refills 0, Acute 07/17/20 13:41:00 EDT, Pain , Severe, 07/12/20 13:41:00 EDT, Print Requisition, Partial fill upon patient request if the prescription is for a maureen... Start Date: 07/12/20 Stop Date: 07/17/20 Status: Ordered senna 187 mg oral tablet 1 tablet = 8.6 mg, By Mouth, Daily, for 14 days, # 14 tablet, 0 Refills, Acute 07/26/20 13:45:00 EDT, 07/12/20 13:45:00 EDT, Tablet, [facility], Partial fill upon patient request if theprescription is for a schedule II opioid drug. Start Date: 07/12/20 Stop Date: 07/26/20 Status: Ordered Suboxone 8 mg-2 mg Sublingual Film 1 film, Sublingual, Daily, 0 Refills, Maintenance, 05/21/19 10:31:00 EST Start Date: 05/21/19 Status: Ordered Problem List Condition Effective Dates Status Health Status Inform ant Rib fractures(Confirmed) Active Results Radiology Reports * Exam Date Time Procedure Performing Provider Status 07/12/20 6:12 AM Chest 2 Views Frontal and Lat Tequila Vanegas (Verified) Notes: (Chest 2 Views Frontal and Lat) Reason For Exam: Pleuritic Pain RESULT: Chest 2 Views Frontal and Lat Chest 2 Views Frontal and Lat Reason: Pleuritic Pain COMPARISON: 07/11/2020 FINDINGS: LINES AND TUBES: None. LUNGS AND PLEURA: Previous described retrocardiac opacity is less conspicuous on this examination, likely resolving atelectasis. Otherwise the lungs are clear. No pleural effusion. No pneumothorax. HEART, MEDIASTINUM AND SHANA: Heart is normal in size. Normal upper mediastinal and hilar contour. BONES AND SOFT TISSUES: No acute abnormality. IMPRESSION: No acute cardiopulmonary abnormality. I have personally reviewed the images and I agree with this report. WSN: [id number] Ordering Physician: Zeeshan Benito Dictated By: Elvin Suárez DO Dictated Date/Time: 07/12/20 10:53 a Reviewed By: Sedrick Box MD Signed By: Sedrick Box MD Signed Date/Time: 07/12/20 10:58 am Transcribed By: SARAH Transcribed Date/Time: 07/12/20 10:45 am * Exam Date Time Procedure Performing Provider Status 07/11/20 7:37 AM Chest Portable Sharita Grant; Auth (V erified) Notes: (Chest Portable) Reason For Exam: Pain;Other: RESULT: Chest Portable Examination: Portable chest performed on 07/11/2020. History: Pain. Question fracture is raised. Findings: A frontal view of the chest is submitted without comparison. The cardiac and mediastinal silhouettes are within normal limits. Prominence of the pulmonary vasculature is noted. There is a left retrocardiac opacity. The osseous structures are unremarkable. IMPRESSION: Pulmonary vascular congestion. A left retrocardiac opacity may represent atelectasis or a developing infiltrate. Clinical correlation is suggested. WSN: [id number] Ordering Physician: Ruby Rangel Dictated By: Kavita Hahn MD Dictated Date/Time: 07/11/20 8:17 am Reviewed By: Kavita Hahn MD Signed By: Kavita Hahn MD Signed Date/Time: 07/11/20 8:17 am Transcribed By: SARAH Transcribed Date/Time: 07/11/20 8:16 am * Exam Date Time Procedure Performing Provider Status 07/11/20 7:44 AM Knee 1 or 2 Views Right Franky Jodie sa; Auth (Verified) Notes: (Knee 1 or 2 Views Right) Reason For Exam: Trauma;with Pain RESULT: Knee 1 or 2 Views Right Knee 1 or 2 Views Right, 2 views Reason: Trauma; with Pain; Clinical Question(s): Fracture FINDINGS: No fracture or dislocation. Possible small bony density related to the anterior aspect of joint, if so this could be loose bodywithin joint. This may just be a soft tissue shadow here. Probable small effusion IMPRESSION: No fracture. Possible small loose body within joint. Probable small effusion. WSN: [id number] Ordering Physician: Ruby Rangel Dictated By: Georgi Gabriel MD Dictated Date/Time: 07/11/20 7:50 am Reviewed By: Georgi Gabriel MD Signed By: Georgi Gabriel MD Signed Date/Time: 07/11/20 7:50 am Transcribed By: SARAH Transcribed Date/Time: 07/11/20 7:47 am Vital Signs Most recent to oldest [Reference Range]: 1 2 3 Oxygen Saturation [94-100 %] 98 % (07/12/20 1:43 PM) 98 % (07/12/20 6:49 AM) 99 % (07/12/20 4:05 AM) Pulse Rate [55-90 bpm] 70 bpm (07/12/20 1:43 PM) 70 bpm (07/12/20 6:49 AM) 88 bpm (07/12/20 4:05 AM) Blood Pressure [90-138/55-84 mm Hg] 122/88mm Hg (07/12/20 1:43 PM) 121/92mm Hg (07/12/20 6:49 AM) 136/92mm Hg (07/12/20 4:05 AM) Respiratory Rate [16-30 br/min] 18 br/min (07/12/20 1:43 PM) 18 br/min (07/12/20 9:10 AM) 15 br/min *L* (07/12/20 6:49 AM) Temperature [96.8-100.4 DegF] 98 DegF (07/12/20 1:43 PM) 98.3 DegF (07/12/20 4:05 AM) 98.3 DegF (07/11/20 11:23 PM) Mode of Delivery (Oxygen) Room air (07/12/20 1:43 PM) Room air (07/12/20 6:49 AM) Room air (07/12/20 4:05 AM) Blood pressure sites Arm, left (07/12/20 6:49 AM) Arm, left (07/12/20 4:05 AM) Arm, left (07/12/20 3:23 AM) Temperature Route Oral (07/12/20 4:05 AM) Oral (07/11/20 11:23 PM) Oral (07/11/20 7:46 PM) Social History Social History Type Response Smoking Status 10 or more cigarette s (1/2 pack or more)/day in last 30 days entered on: 05/21/19 Sex
--- OUTSIDE RECORDS SUMMARY | 2023-09-08 02:28 | XMS_ITS | Continuity of Care Document ---
Author Organization [facility] Address [address] [place] [address] [address] [place] [address]- Care Team Providers Care Dividing Machine Operator Helper Name Role Phone Not on Staff, PCP Primary Care Physician Unavail able Encounter [facility] Date(s): 07/27/20 - 08/03/[address] [place] [address]- Attending Physician: Dominic Estevez MD Allergies, Adverse Reactions, Alerts Substance Reaction Severity Status penicillin Mouth ulcer mouth sores Active Immunizations Given and Recorded Vaccine Date Status Refusal Reason Human Papillomavirus Vaccine 08/03/07 Given Human Papillomavirus Vaccine 1 02/19/07 Given Human Papillomavirus Vaccine 12/15/06 Given 1Admin Note: # 2 Medications gabapentin 100 mg oral capsule 100 mg, 1, capsule, By Mouth, 3 times a day, # 90 capsule, Refills 0, Tot. Refills 0, Maintenance, 07/12/20 13:44:00 EDT, Route to Pharmacy Electronically, [facility], Partial fill uponpatient request if the prescription is for a schedu... Start Date: 07/12/20 Stop Date: 08/11/20 Status: Ordered ibuprofen 800 mg oral tablet 800 mg, 1, tablet, By Mouth, 3 times a day, # 90 tablet, Refills 0, Maintenance, 07/27/20 9:05:00 EDT, Partial fill upon patient request if the prescription is for a schedule II opioid drug. Start Date: 07/27/20 Status: Ordered lidocaine 5% topical film 1 patch, Topically, Daily, # 30 patch, 0 Refills, Maintenance, 07/12/20 13:44:00 EDT, Patch, [facility], Partial fill upon patient request if the prescription is for a schedule II opioid drug., 1 patch Topically Daily,x30 days Start Date: 07/12/20 Stop Date: 08/11/20 Status: Ordered Suboxone 8 mg-2 mg Sublingual Film 1 film, Sublingual, Daily, 0 Refills, Maintenance, 05/21/19 10:31:00 EST Start Date: 05/21/19 Status: Ordered Problem List Condition Effective Dates Status Health Status Inform ant Rib fractures(Confirmed) Active Vital Signs Most recent to oldest [Reference Range]: 1 Height 163 cm (07/27/20 9:03 AM) Weight 56.1 kg (07/27/20 9:03 AM) Pulse Rate [55-90 bpm] 95 bpm *H* (07/27/20 9:03 AM) Body Mass Index [18.5-24.99] 21.11 (07/27/20 9:03 AM) Blood Pressure [90-138/55-84 mm Hg] 116/ 74mm Hg (07/27/20 9:03 AM) Temperature [96.8-100.4 DegF] 98.2 DegF (07/27/20 9:03 AM) Blood pressure sites Arm, right (07/27/20 9:03 AM) Temperature Route Temporal (07/27/20 9:03 AM) Weight Obtained Via Standing scale (07/27/20 9:03 AM) Social History Social History Type Response Smoking Status 10 or more cigarette s (1/2 pack or more)/day in last 30 days entered on: 05/21/19 Sex
--- OUTSIDE RECORDS SUMMARY | 2023-09-08 02:28 | XMS_ITS | Continuity of Care Document ---
Author Organization [facility] Address [address] [facility], [address] [place] [address]- Care Team Providers Care Wafer Production Worker Name Role Phone Not on Staff, PCP Primary Care Physician Unavail able Encounter [facility] NBR [id number] Date(s): 05/14/19 - 05/24/19 [facility] [address] [facility], [facility] [address] [place], [place] [address] Attending Physician: Jasiel Wells Admitting Physician: AdmtrJasiel Referring Physician: Admtr, Jasiel Allergies, Adverse Reactions, Alerts Substance Reaction Severity [...] 10:31:00 EST Start Date: 05/21/19 Status: Ordered Social History Social History Type Response Smoking Status 10 or more cigarette s (1/2 pack or more)/day in last 30 days entered on: 05/21/19 Sex
--- OUTSIDE RECORDS SUMMARY | 2023-09-08 02:29 | XMS_ITS | Continuity of Care Document ---
Author Organization [facility] Address [address] [facility], [address] [place] [address]- Care Team Providers Care Soda Room Operator Name Role Phone Not on Staff, PCP Primary Care Physician Unavail able Encounter [facility] NBR [id number] Date(s): 05/14/19 - 05/21/19 [facility] [address] [facility], [facility] [address] [place], [place] [address] Attending Physician: Cristiana MOLINA, Joao Lazcano Referring Physician: Not on Staff, Referring MD [...] 10:31:00 EST Start Date: 05/21/19 Status: Ordered Vital Signs Most recent to oldest [Reference Range]: 1 Height 164 cm (05/14/19 9:35 AM) Weight 62.2 kg (05/14/19 9:35 AM) Oxygen Saturation [94-100 %] 98 % (05/14/19 9:35 AM) Pulse Rate [55-90 bpm] 102 bpm *H* (05/14/19 9:35 AM) Body Mass Index [18.5-24.99] 23.13 (05/14/19 9:35 AM) Blood Pressure [90-138/55-84 mm Hg] 110/ 64mm Hg (05/14/19 9:35 AM) Respiratory Rate [16-30 br/min] 16 br/mi n (05/14/19 9:35 AM) Temperature [96.8-100.4 DegF] 97.9 DegF (05/14/19 9:35 AM) Mode of Delivery (Oxygen) Room air (05/14/19 9:35 AM) Blood pressure sites Arm, left (05/14/19 9:35 AM) Temperature Route Temporal (05/14/19 9:35 AM) Weight Obtained Via Standing scale (05/14/19 9:35 AM) Social History Social History Type Response Smoking Status 10 or more cigarette s (1/2 pack or more)/day in last 30 days entered on: 05/21/19 Sex
--- OUTSIDE RECORDS SUMMARY | 2023-09-08 02:29 | XMS_ITS | Continuity of Care Document ---
Author Organization [facility] Address [address] [place], [place] [address]i ve [address] [place] [address]- Care Team Providers Care Garbage Worker Name Role Phone Not on Staff, PCP Primary Care Physician Unavail able Encounter [facility] Date(s): 07/27/20 - 08/26/[address] [place] [address]- Attending Physician: Jasiel Wells Admitting Physician: AdmtrJasiel Referring Physician: Admtr, Ar8 Allergies, Adverse Reactions, Alerts Substance Reaction Severity [...] 07/12/20 13:44:00 EDT, Route to Pharmacy Electronically, [facility], Partial fill uponpatient request if [...] 0 Refills, Maintenance, 07/12/20 13:44:00 EDT, Patch, [facility], Partial fill upon patient [...] Health Status Inform ant Rib fractures(Confirmed) Active Social History Social History Type Response Smoking Status 10 or more cigarette s (1/2 pack or more)/day in last 30 days entered on: 05/21/19 Sex
[2023-09-08 03:55] VITALS: BP 119/98; PULSE 74; RESP 16; TEMP 36.7; O2SAT 97
[2023-09-08 04:55] VITALS: BP 136/101; PULSE 90; RESP 17; TEMP 36.8; O2SAT 98
[2023-09-08 05:05] VITALS: BP 133/94; PULSE 96; RESP 14; TEMP 36.8; O2SAT 98
== END 2023-09-08 05:29 | disposition home or self-care (01) ==
PROVIDERS: Emergency Provider Emergency Medicine Emergency Medical Services
DX: F10.239 Alcohol dependence with withdrawal, unspecified (principal); Y90.0 Blood alcohol level of less than 20 mg/100 ml; R11.2 Nausea with vomiting, unspecified; R30.0 Dysuria; R10.2 Pelvic and perineal pain; R10.30 Lower abdominal pain, unspecified; Z11.52 Encounter for screening for COVID-19; Z79.899 Other long term (current) drug therapy; Z51.81 Encounter for therapeutic drug level monitoring
CPT/HCPCS: 36415; 74176; 80053; 80307; 81001; 81025; 83690; 85025; 87086; 87502; 87635; 96361; 96374; 96375; 99284; 99285; J1885; J2060; J2405

== ENCOUNTER 2023-09-11 15:11 | Outpatient (AMB) | payer OTHER, SELFPAY ==
--- NOTE | 2023-09-11 15:19 | A.OFFVIS_ITS ---
Vital Signs 09/11/23 15:29 Height 5 ft 4 in Weight 108 lb BMI 18.5 BP 139/88 Blood Pressure Location Lt brachial Position Sitting Pulse 93 Intake Visit Reasons: Breast Exam, breast lump Intake Note: Patient is seen in office for breast exam, following bilateral breast lump. Pt c/o: onset couple of months, was felt by OBGYN, pt feels it too, discomfort around menstrual cycle, denies redness discharge mm ? us:08/04/23 Geographic Information Systems Analyst Required: No Industrial Relations Counselor: Industrial Relations Counselor Present Accompanied by: Mother Allergies Penicillins [PENICILLINS] Allergy (Intermediate, Verified 09/11/23 15:26) HIVES Medication List - Last Reconciled 09/11/23 by Elvin Garibay MD buprenorphine-naloxone 8-2 mg (Suboxone) 1 strip sublingual DAILY nitrofurantoin monohyd/m-cryst 100 mg 1 cap PO BID ondansetron 4 mg PO TID PRN 5 days HPI Comments Details: 38-year-old female patient presenting for evaluation of bilateral breast lumps noted on recent physical examination. This includes a lump in the left breast between 1 and 03:00 o'clock as well as a lump in the right breast at 01:00 o'clock 1st noted approximately 6 months ago. She underwent a baseline mammogram and ultrasound on 08/04/2023. This revealed dense breast tissue however no mammographic or ultrasound evidence of malignancy (BI-RADS 1). She does note some discomfort when the sites are palpated and occasionally has discomfort in the right breast without palpation. She denies any skin changes, redness or discharge from the nipples. She denies a prior history of breast problems or breast surgery. She does have a strong family history of breast cancer on both sides of her family including a paternal grandmother and several maternal great aunts. Her sister recently underwent a breast biopsy which was benign. Her mom also underwent a breast biopsy which was benign. She is G0 a menarche was at the age of 13. She smokes half pack per day. [facility] Medical History Opioid abuse Alcohol abuse Pancreatitis Surgical History History of tonsillectomy and adenoidectomy [place] teeth extracted Family History Mother No problems noted. Father Alcoholic Sister Hypertension Other No family history of coronary artery disease Social History Household Members: Spouse Housing: House Do you presently have visiting nurse or other home services: No Alcohol intake: former Patient Tobacco Use Status: Current everyday Tobacco user Tobacco use type: Cigarette Cigarette Packs Per Day: 0.5 Cigarettes Per Day: 10.0 Years Smoked: 10 Second Hand Smoke Exposure: No Substance Use Type: Marijuana Advance Directives Date on File: 11/16/20 service: No Current occupational status: employed Cognitive needs: No Hearing needs: No Vision needs: No Female Reproductive History Menstrual Age of Menarche: 13 Date of menopause: 08/12/23 Total pregnancies: 0 Review of Systems Const All systems reviewed & are unremarkable except as noted in HPI and below Denies chills, Denies fever(s), Denies headache(s), Denies poor appetite and Denies weakness ENT Denies headache(s) Card Denies chest pain, Denies irregular heart rhythm, Denies palpitations and Denies dyspnea Resp Denies cough, Denies excessive phlegm production and Denies dyspnea GI Denies abdominal pain, Denies bloating, Denies change in bowel habits, Denies constipation, Denies heartburn, Denies diarrhea, Denies nausea and Denies vomiting Denies urinary frequency and Denies nipple discharge Musc Denies back pain, Denies muscle weakness and Denies numbness Skin/Breast Denies breast skin changes, Reports breast pain, Reports breast mass, Denies changing lesions, Denies nipple discharge and Denies unusual bruising Neuro Denies headache(s), Denies numbness, Denies paresthesias and Denies weakness Psych Denies anxiety and Denies depression Endo Denies palpitations Donald/Lymph Denies lymphadenopathy Physical Exam Vital Signs: Last Vital Signs Pulse 93 09/11/23 15:29 BP 139/88 09/11/23 15:29 BMI result Body Mass Index 18.5 Const General: cooperative and no acute distress Nutritional Appearance: well nourished Orientation/consciousness: patient oriented x3 Limitations: no limitations HEENT Head: Yes normocephalic and Yes atraumatic Ears: hearing grossly normal bilaterally Chest Other: Bilateral areas of fibrocystic change and very dense breast tissue especially in the upper inner and outer quadrants bilaterally. Left breast: No skin change, no nipple retraction, no nipple discharge, no discrete palpable mass, no enlarged lymph nodes. Right breast: No skin change, no nipple retraction, no nipple discharge, no discrete palpable mass, no enlarged lymph nodes Resp Effort & Inspection: normal respiratory effort, no audible wheezes, no cough and no respiratory distress Cardio Jugular venous distension: no JVD GI Inspection: Yes normal to inspection Skin Other: Warm, dry, no rash Neuro General: patient oriented x3 Extrem General: Yes no clubbing, cyanosis or edema Assessment & Plan Assessment & Plan (1) Breast mass in female: Comment: Left side 1:00 to 3:00, right side 01:00 o'clock. Code(s): N63.0 - Unspecified lump in unspecified breast Category: Medical Plan 38-year-old female patient presenting with concern of bilateral breast lumps of six-month duration associated with breast discomfort. Workup with mammogram and ultrasound was negative for any suspicious findings. Examination today does reveal markedly dense breast tissue and fibrocystic change especially in the upper quadrants. No discrete suspicious masses appreciated on my examination. We did discussed genetic testing given her strong family history of breast cancer. She wishes to proceed with this and will be scheduled for a return visit once the test results are complete. She is welcome to call sooner for any new concerns. Coding Level of Care Code New Pt Level 4 (06584) Diagnoses Breast mass in female N63.0
[2023-09-11 15:29] VITALS: BP 139/88; PULSE 93; BMI 18.5
== END 2023-09-11 15:44 | disposition home or self-care (01) ==
PROVIDERS: PCP Nurse Practitioner Family; Visit Provider Surgery
DX: N63.0 Unspecified lump in unspecified breast (principal)
CPT/HCPCS: 99204

== ENCOUNTER → 2023-09-11 15:11 | Outpatient (BNVA) | payer SELFPAY | PROVIDERS: PCP Nurse Practitioner Family; Visit Provider Surgery ==

== ENCOUNTER 2023-12-18 13:00 | Outpatient (AMB) | payer OTHER, SELFPAY ==
--- NOTE | 2023-12-18 13:02 | A.OFFVIS_ITS ---
Vital Signs 12/18/23 13:05 Height 5 ft 4 in Weight 108 lb BMI 18.5 BP 120/82 Intake Visit Reasons: ? Tampon stuck Intake Note: vag itching, discomfort with intimacy, no discharge or odor Order Management Specialist: Order Management Specialist Present (Susana) Allergies Penicillins [PENICILLINS] Allergy (Intermediate, Verified 12/18/23 13:04) HIVES Is last menstrual period known: Yes Last menstrual period: 12/04/23 HPI Comments Details: Patient is here today for evaluation of a possible retained tampon and also some yeast symptoms (itching). Reports LMP and did last week. Denies any pelvic pain, or urinary symptoms. [facility] Medical History Opioid abuse Alcohol abuse Pancreatitis Surgical History History of tonsillectomy and adenoidectomy [place] teeth extracted Family History (Updated 09/11/23 @ 16:15 by CESAR Taylor) Mother No problems noted. Father Alcoholic Sister Hypertension Maternal Grandmother Breast cancer Paternal Grandmother Breast cancer Other No family history of coronary artery disease Social History Household Members: Spouse Housing: House Do you presently have visiting nurse or other home services: No Alcohol intake: former Patient Tobacco Use Status: Current everyday Tobacco user Tobacco use type: Cigarette Cigarette Packs Per Day: 0.5 Cigarettes Per Day: 10.0 Years Smoked: 10 Second Hand Smoke Exposure: No Substance Use Type: Marijuana Advance Directives Date on File: 11/16/20 service: No Current occupational status: employed Cognitive needs: No Hearing needs: No Vision needs: No Female Reproductive History Menstrual Age of Menarche: 13 Date of last menstrual period: 12/04/23 Date of menopause: 08/12/23 Review of Systems Const All systems reviewed & are unremarkable except as noted in HPI and below Physical Exam Vital Signs: Last Vital Signs BP 120/82 12/18/23 13:05 BMI result Body Mass Index 18.5 Const General: cooperative, healthy appearing and no acute distress Orientation/consciousness: patient oriented x3 GI Inspection: Yes normal to inspection Palpation (GI): Soft to palpation and Other GI palpation findings present (Nont dex) Rectal Exam - Female: visual inspection normal General: Yes bladder normal to palpation External Female Exam: normal appearance of the urethra Speculum Exam - Vagina: normal appearance of the vagina, normal palpation and normal vaginal discharge (White thin) Speculum Exam - Cervix: normal appearance of the cervix and normal palpation Bimanual exam- vagina & uterus: normal bimanual exam, normal palpation, uterine size normal, bladder normal to palpation, normal palpation, uterine shape normal and non-tender Bimanual Exam- Adnexa, other: normal adnexae Neuro General: patient oriented x3 Assessment & Plan Assessment & Plan (1) Vaginal irritation: Code(s): N89.8 - Other specified noninflammatory disorders of vagina Plan Discussed: No tampon was found. Advised to use mild soap externally rinse well, cotton u nderwear. Await BV results for plan of care. Schedule annual exam for June of 2024. All of her questions and concerns were addressed to the best of my ability and shared decision making. She is agreeable to the plan of care. This note is constructed using voice recognition software. While every effort has been made to ensure accuracy, fountain pen turner errors may have been included. Coding Level of Care Code Est Pt Level 3 (13104) Diagnoses Vaginal irritation N89.8
[2023-12-18 13:05] VITALS: BP 120/82; BMI 18.5
== END 2023-12-18 13:18 | disposition home or self-care (01) ==
PROVIDERS: PCP Internal Medicine; Visit Provider Advanced Practice Midwife
DX: N89.8 Other specified noninflammatory disorders of vagina (principal)
CPT/HCPCS: 99213

== ENCOUNTER 2023-12-18 13:00 | Outpatient (REF) | payer OTHER, SELFPAY ==
[2023-12-18 18:15] LABS: Bacterial Vaginosis PCR POSITIVE (Negative); Candida Group PCR NOT DETECTED (Not Detect); Candida glab krusei PCR NOT DETECTED (Not Detect); Trichomonas vaginalis PCR NOT DETECTED (Not Detect)
== END 2023-12-18 13:01 | disposition home or self-care (01) ==
LOC: HO.LAB 13:00
PROVIDERS: PCP Internal Medicine; Visit Provider Advanced Practice Midwife
DX: N89.8 Other specified noninflammatory disorders of vagina (principal)
CPT/HCPCS: 0352U

== ENCOUNTER 2024-02-18 22:12 | Inpatient (IN) | payer OTHER, SELFPAY ==
[2024-02-18 22:15] VITALS: BP 181/117; PULSE 98; RESP 22; TEMP 36.9; O2SAT 96; BMI 19.7
[2024-02-18 22:36] LABS: MANUAL DIFF FLAG NO
[2024-02-18 22:37] LABS: Basophils Percent Auto 0.8 % (0-2); Eosinophils Percent Auto 0.2 % (0-4); Hematocrit 40.4 % (37.0-47.0); Hemoglobin 14.6 g/dl (12.0-16.0); Imm Gran Abs Auto 0.02 X10*3/uL (0.00-0.03); Imm Gran Pct Auto 0.4 % (0.0-0.4); Lymphocytes Absolute Auto 0.9 X10*3/uL (1.2-4.9); Lymphocytes Percent Auto 19.1 % (20-40); Mean Corpuscular HGB Conc 36.1 g/dl (31.0-35.0); Mean Corpuscular Hemoglobin 36.8 pg (27.0-33.0); Mean Corpuscular Volume 101.8 fL (80.0-98.0); Mean Platelet Volume 9.5 fL (9.4-12.3); Monocytes Absolute Auto 0.6 X10*3/uL (0.1-1.2); Neutrophils Absolute Auto 3.3 x10*3/uL (2.0-8.3); Neutrophils Percent Auto 66.5 % (45-73); Platelet Count 175 X10*3/uL (160-400); Red Blood Count 3.97 X10*6/uL (4.20-5.50); Red Cell Distribution Width 14.7 % (11.0-16.0); White Blood Count 4.9 X10*3/uL (4.8-10.8)
[2024-02-18 22:51] LABS: Alanine Aminotransferase 43 U/L (0-31); Albumin Level 4.8 g/dL (3.5-5.0); Alkaline Phosphatase 101 U/L (39-117); Anion Gap 19 (12-20); Aspartate Amino Transferase 168 U/L (5-31); Bilirubin Total 1.1 mg/dL (0.0-1.0); Blood Urea Nitrogen 5 mg/dL (9-16); Calcium 9.5 mg/dL (8.4-10.2); Carbon Dioxide 29 mmol/L (22-29); Chloride 97 mmol/L (96-108); Creatinine Clr Calc Pharmacy 86.9; Estimated Glomerular Filt Rate > 60; Ethanol 88 mg/dL; Glucose Random 114 mg/dL (60-115); Potassium 3.7 mmol/L (3.3-5.1); Sodium 141 mmol/L (135-145); Total Protein 7.7 g/dL (6.5-8.0)
[2024-02-18 23:57] VITALS: BP 175/111; PULSE 91; RESP 16; TEMP 37.2; O2SAT 97
[2024-02-19] VITALS (7 sets, daily range): BP systolic 120–155; BP diastolic 80–98; PULSE 66–115; RESP 12–22; TEMP 36.6–36.9; O2SAT 96–99
--- NOTE | 2024-02-19 00:42 | PC.NURSE ---
on arrival from pt changed over to hospital attire. nips found and discarded by security. belongings locked up by security. suboxone med to pharmacy signed with patient. pepper spray secured with security. pt had vitamins in bag secured with rest of belongings. no other meds found on pt.
[2024-02-19] MEDS: diazePAM 10 MG/2 ML CARTRIDGE 5 MG IVPUSH (00:53)
--- NOTE | 2024-02-19 01:13 | ED.GENADULT ---
HPI - General Adult General Chief complaint: ETOH/Substance Use Stated complaint: nauseous, stomach pain, headache/alc w/d Time Seen by Provider: 02/19/24 00:43 Source: patient History of Present Illness ED Provider: Gerardo PAN narrative: Three 71-year-old female with past medical history of alcohol use disorder, opioid abuse, presenting for alcohol withdrawal. Patient states that her last alcoholic beverage was yesterday night and today she is experiencing nausea, vomiting, abdominal pain and tremors. She states she has never experienced withdrawal seizures. He states that last time she presented to the emergency department for this she was treated in the emergency department and discharged with benzos which helped however she resumed drinking. She denies any acute trauma and denies chest pain, shortness of breath, fever, dysuria/hematuria Related Data Home Medications ?Medication ?Instructions ?Recorded ?Confirmed buprenorphine 8 mg-naloxone 2 mg 1 strip sublingual DAILY 12/17/21 09/11/23 sublingual film (Suboxone) Previous Rx's ?Medication ?Instructions ?Recorded ondansetron 4 mg disintegrating 4 mg PO TID PRN nausea and 09/08/23 tablet vomiting 5 days #10 tabs metronidazole 0.75 % (37.5 mg/5 1 appful vaginal BEDTIME 5 days 12/19/23 gram) vaginal gel #70 grams Allergies Allergy/AdvReac Type Severity Reaction Status Date / Time Penicillins [PENICILLINS] Allergy Intermediate HIVES Verified 02/18/24 22:16 Review of Systems Review of Systems: Patient endorses abdominal pain, nausea, vomiting, tremors Yes all other systems are reviewed and are negative PMFSH Past Medical History Medical History Opioid abuse Alcohol abuse Pancreatitis Surgical History History of tonsillectomy and adenoidectomy [place] teeth extracted Family History Family History (Updated 09/11/23 @ 16:15 by CESAR Taylor) Mother No problems noted. Father Alcoholic Sister Hypertension Maternal Grandmother Breast cancer Paternal Grandmother Breast cancer Other No family history of coronary artery disease Social History Social History Household Members: Spouse Housing: House Do you presently have visiting nurse or other home services: No Alcohol intake: current Alcohol intake frequency: 3 or more drinks per day Alcohol type: hard liquor Patient Tobacco Use Status: Current everyday Tobacco user Tobacco use type: Cigarette Cigarette Packs Per Day: 0.5 Cigarettes Per Day: 10.0 Years Smoked: 10 Smoked in Last 30 Days: Yes Second Hand Smoke Exposure: No Use of substances other than those prescribed or required for medical reasons: Yes Substance Use Type: Marijuana Substance Use Type Other:: Suboxone Advance Directives: Yes Advance Directives on File: Yes Advance Directives Date on File: 11/16/20 Do you have a plan to hurt others: No Plan service: No Current occupational status: employed Cognitive needs: No Hearing needs: No Vision needs: No Physical Exam ED Vital Signs: Vital Signs - 24 hr 02/18/24 22:15 02/18/24 23:57 Temperature 98.5 F 99.0 F Pulse Rate 98 91 Respiratory Rate 22 H 16 Blood Pressure 181/117 H 175/111 H Pulse Oximetry 96 97 Oxygen Delivery Method Room Air Room Air BMI result Body Mass Index 19.7 Well-appearing however tremulous with tongue fasciculations Mild diffuse abdominal tenderness; abdomen otherwise soft and nondistended Lungs clear to auscultation bilaterally; normal S1-S2 tachycardic No external signs of trauma Medications Administered Discontinued Medications Generic Name Dose Route Start Last Admin Trade Name Freq PRN Reason Stop Dose Admin Diazepam 5 mg 02/19/24 00:43 02/19/24 00:53 Diazepam 10 Mg/2 Ml Cartridge IVPUSH 02/19/24 00:44 5 mg STAT STA Administration Medical Decision Making Medical Decision Making [facility] Narrative: This is a 38-year-old female with past medical history of alcohol abuse presenting for alcohol withdrawal -I have no concerns for underlying trauma or underlying infection however we will obtain lab work -IV diazepam and p.o. chlordiazepoxide ordered -labs notable for no white count, stable H&H, electrolytes within normal limits, normal creatinine, elevated LFTs -all patient's LFTs are elevated I do not suspect that she has liver/gallbladder infection as she is a chronic alcoholic with chronically elevated LFTs -patient signed out to night provider Differential Diagnosis Differential Diagnoses: The differential diagnosis associated with the presentation includes Alcohol withdrawal Lab Data 02/18/24 22:30 10/23/24 22:30 Labs: Lab Results 02/18/24 Range/Units 22:30 WBC 4.9 (4.8-10.8) X10*3/uL RBC 3.97 L (4.20-5.50) X10*6/uL Hgb 14.6 (12.0-16.0) g/dl Hct 40.4 (37.0-47.0) % MCV 101.8 H (80.0-98.0) fL MCH 36.8 H (27.0-33.0) pg MCHC 36.1 H (31.0-35.0) g/dl RDW 14.7 (11.0-16.0) % Plt Count 175 (160-400) X10*3/uL MPV 9.5 (9.4-12.3) fL Immature Gran % (Auto) 0.4 (0.0-0.4) % Neut % (Auto) 66.5 (45-73) % Lymph % (Auto) 19.1 L (20-40) % Jay % (Auto) 13.0 H (2-11) % Eos % (Auto) 0.2 (0-4) % Baso % (Auto) 0.8 (0-2) % Lymph # (Auto) 0.9 L (1.2-4.9) X10*3/uL Jay # (Auto) 0.6 (0.1-1.2) X10*3/uL Eos # (Auto) 0.0 (0.0-0.4) X10*3/uL Baso # (Auto) 0.0 (0.0-0.2) X10*3/uL Abs Immat Gran (auto) 0.02 (0.00-0.03) X10*3/uL Absolute Neuts (auto) 3.3 (2.0-8.3) x10*3/uL Absolute Nucleated RBC 0.000 (0.0-0.012) X10*3/uL Nucleated RBC % (auto) 0.0 (0.0-0.2) /100WBC Sodium 141 (135-145) mmol/L Potassium 3.7 (3.3-5.1) mmol/L Chloride 97 (96-108) mmol/L Carbon Dioxide 29 (22-29) mmol/L Anion Gap 19 (12-20) BUN 5 L (9-16) mg/dL Creatinine 0.73 (0.5-1.4) mg/dL Estim Creat Clear Calc 86.9 Estimated GFR > 60 Random Glucose 114 (60-115) mg/dL Calcium 9.5 (8.4-10.2) mg/dL Total Bilirubin 1.1 H (0.0-1.0) mg/dL AST 168 H (5-31) U/L ALT 43 H (0-31) U/L Alkaline Phosphatase 101 (39-117) U/L Total Protein 7.7 (6.5-8.0) g/dL Albumin 4.8 (3.5-5.0) g/dL Ethyl Alcohol 88 mg/dL Discharge Plan Discharge Clinical Impression: Alcohol withdrawal Qualifiers: Complication of substance-induced condition: uncomplicated Qualified Code(s): F10.930 - Alcohol use, unspecified with withdrawal, uncomplicated Patient Disposition: Still a Patient Prescriptions: No Action metronidazole 0.75 % (37.5mg/5 gram) gel 1 appful vaginal BEDTIME 5 Days Qty: 70 0RF buprenorphine-naloxone [Suboxone] 8-2 mg film 1 strip sublingual DAILY ondansetron 4 mg tablet,disintegrating 4 mg PO TID PRN (Reason: nausea and vomiting) 5 Days Qty: 10 0RF Print Language: German
[2024-02-19] MEDS: chlordiazePOXIDE HCl 25 MG CAPSULE PO (01:56)
[2024-02-19 03:43] LABS: Appearance Urine Clear; Color Urine Dark Yellow; Glucose Urine UA Negative (Negative); Leukocyte Esterase Urine Negative (Negative); Nitrite Urine Negative (Negative); PH 8.5 (5.0-9.0); Specific Gravity - Urine 1.025 (1.005-1.025); UMIC TRIGGER UACC YES; Urine Blood Negative (Negative); Urine Ketones Trace mg/dL (Negative); Urine Protein 100 (2+) mg/dL (Neg-Trace)
[2024-02-19] MEDS: Magnesium Sulfate/H2O 2 GM/50 ML PIGGYBACK IV (03:47)
[2024-02-19] MEDS: LORazepam 2 MG/ML VIAL IVPUSH (03:47)
[2024-02-19 03:53] LABS: Amphetamine Screen Urine Not Detected (Not Detect); Barbiturates, Urine Not Detected (Not Detect); Benzodiazepines Screen Urine Not Detected (Not Detect); Buprenorphine Scr Positive (Not Detect); Cannabinoid Screen Urine POSITIVE (Not Detect); Cocaine Screen Urine Not Detected (Not Detect); Fentanyl, urine Not Detected (Not Detect); Methadone Screen, Urine Not Detected (Not Detect); Opiate Screen Urine Not Detected (Not Detect); Oxycodone Screen Urine Not Detected (Not Detect); Phencyclidine Screen Urine Not Detected (Not Detect)
[2024-02-19 03:54] LABS: Bacteria Urine 1+ (None Seen); RBC Urine 0-2 /HPF (0-2); WBC Urine 0-5 /HPF (0-5)
[2024-02-19 04:12] LABS: Magnesium 1.7 mg/dL (1.6-2.6)
--- NOTE | 2024-02-19 04:16 | ECG_ITS ---
Test Reason : ETOH Blood Pressure : / mmHG Vent. Rate : 069 BPM Atrial Rate : 069 BPM P-R Int : 162 ms QRS Dur : 082 ms QT Int : 418 ms P-R-T Axes : 064 053 040 degrees QTc Int : 447 ms Normal sinus rhythm Normal ECG When compared to the previous EKG of No significant changes seen Referred By: Geronimo Nelson Electronically Signed By:Lauri Buchanan
--- NOTE | 2024-02-19 04:21 | PC.NURSE ---
pt continues to report nausea. made aware.
[2024-02-19] MEDS: ondansetron HCL 4 MG/2 ML VIAL IVPUSH ×2 (04:33→13:34)
--- NOTE | 2024-02-19 07:10 | PC.NURSE ---
at time of d/c pt ciwa score 9. called to bedside. pt inagreement to stay inpt for treatment of alc withdrawals. report given to Anamika LIEBERMAN.
[2024-02-19] MEDS: PHENobarbitaL sodium 130 MG/ML IM ONCE 218 MG IM (07:20)
--- NOTE | 2024-02-19 08:38 | P.HPHOSP_ITS ---
History of Present Illness Date of Service: 02/19/24 <FRANKIE Roldan Last Filed: 02/19/24 10:30> Attending physician on admission: Andriy Byrd <FRANKIE Roldan Last Filed: 02/19/24 10:30> Chief Complaint: Alcohol withdrawal <FRANKIE Roldan Last Filed: 02/19/24 10:30> Patient is a 38-year-old female with a past medical history significant for alcohol use, on Suboxone x5 years and history of pancreatitis, who reported to the ED yesterday to 2 alcohol withdrawal. She reports she drinks 1 sleeve of nips per day. She has been sober from opioids but continues to take Suboxone for the past 5 years. She was his smokes 1 pack of cigarettes a day. She is moderately anxious but denies agitation, no numbness tingling visual or auditory hallucinations. Headache has improved. She reports she was vomiting significantly however this has also improved. In the past she has required 1 admission for alcohol withdrawal and in August of this year was treated outpatient with Ativan however she resumed drinking. She denies history of alcohol withdrawal seizures or DTs. <FRANKIE Roldan Last Filed: 02/19/24 10:30> Review of Systems 2 Constitutional: Constitutional: Denies body ache(s), Denies chills, Denies fatigue, Denies fever(s) and Reports headache(s) <FRANKIE Roldan Last Filed: 02/19/24 10:30> Eyes: Eyes: Denies change in vision <FRANKIE Roldan Last Filed: 02/19/24 10:30> ENT: Denies dizziness, Reports headache(s), Denies nasal congestion, Denies nasal discharge and Denies sore throat <FRANKIE Roldan Last Filed: 02/19/24 10:30> Cardiovascular: Cardiovascular: Denies chest pain, Denies rapid heart rate and Denies dyspnea <FRANKIE Roldan Last Filed: 02/19/24 10:30> Respiratory: Respiratory: Denies cough and Denies dyspnea <DANIELE RoldanC Last Filed: 02/19/24 10:30> Gastrointestinal: Gastrointestinal: Denies diarrhea, Reports nausea and Reports vomiting <PamellaJEAN GarciaSophy Filed: 02/19/24 10:30> Genitourinary: Genitourinary: Denies dysuria <PamellaJEAN GarciaSophy Last Filed: 02/19/24 10:30> Musculoskeletal: Musculoskeletal: Denies numbness and Denies tingling < PamellaJEAN FosterSophy Last Filed: 02/19/24 10:30> Integumentary/Breasts: Skin/Breast: Denies rash <PamellaJEAN GerardoSophy Filed: 02/19/24 10:30> Neurologic: Denies confusion, Denies dizziness, Reports headache(s), Denies numbness, Denies tingling and Denies paresthesias <Pamella McallisterJEAN parkerSophy Filed: 02/19/24 10:30> Psychiatric: Psychiatric: Denies confusion, Denies hallucinations and Denies tactile hallucinations <Pamella Pepe, PASophy Last Filed: 02/19/24 10:30> Endocrine: Endocrine: Denies fatigue <PamellaJEAN FosterSophy Filed: 02/19/24 10:30> [facility] Medical History: Medical History Opioid abuse Alcohol abuse Pancreatitis <Pamella Pepe, PASophy Filed: 02/19/24 10:30> Functional capacity: independent ambulation <PamellaJEAN GarciaSophy Filed: 02/19/24 10:30> Family History: Family History (Updated 09/11/23 @ 16:15 by CESAR Taylor) Mother No problems noted. Father Alcoholic Sister Hypertension Maternal Grandmother Breast cancer Paternal Grandmother Breast cancer Other No family history of coronary artery disease <DANIELE RoldanRajani Last Filed: 02/19/24 10:30> Surgical History: Surgical History History of tonsillectomy and adenoidectomy [place] teeth extracted <Pamella Cantu PA-C - Last Filed: 02/19/24 10:30> Social History: Social History Household Members: Spouse Housing: House Do you presently have visiting nurse or other home services: No Alcohol intake: current Alcohol intake frequency: 3 or more drinks per day Alcohol type: hard liquor Patient Tobacco Use Status: Current everyday Tobacco user Tobacco use type: Cigarette Cigarette Packs Per Day: 0.5 Cigarettes Per Day: 10.0 Years Smoked: 10 Smoked in Last 30 Days: Yes Patient Interested in Nicotine Replacement: Yes Patient Given Instructions on How to Stop Smoking: Yes Date Education Initiated: 02/19/24 Second Hand Smoke Exposure: No Use of substances other than those prescribed or required for medical reasons: No Substance Use Type: Marijuana Substance Use Type Other:: Suboxone Have you been hit, kicked, punched, or otherwise hurt by someone within the past year? If so, by whom?: No Do you feel safe in your current relationship?: Yes Is there a partner from a previous relationship who is making you feel unsafe now?: No Are you made to feel afraid or neglected: No Advance Directives: Yes Advance Directives on File: Yes Advance Directives Date on File: 11/16/20 Do you have a plan to hurt others: No Plan Recently lost weight without trying: Yes How much weight loss: 2-13 pounds Eating poorly because of decreased appetite: Yes Nutrition screen score: 4 Nutrition Risks: No Nutritional Risk Patient : No : No Poor oral hygiene: No service: No Current occupational status: employed Cognitive needs: No Hearing needs: No Vision needs: No <FRANKIE Roldan Last Filed: 02/19/24 10:30> Meds Allergies/Adverse reactions: Allergies Allergy/AdvReac Type Severity Reaction Status Date / Time Penicillins [PENICILLINS] Allergy Intermediate HIVES Verified 02/18/24 22:16 <FRANKIE Roldan Last Filed: 02/19/24 10:30> Active Medications: Current Medications Pharmacy Consult (Consult Rx Etoh Phenob Im/Po) 1 each MISCELLANE ONCE PRN; Protocol PRN Reason: Consult order Phenobarbital (Phenobarbital 15 Mg Tablet) 45 mg PO BID [facility] Stop: 02/21/24 09:01 Phenobarbital (Phenobarbital 30 Mg Tablet) 30 mg PO BID [facility] Stop: 02/23/24 09:01 Phenobarbital (Phenobarbital 30 Mg Tablet) 30 mg PO DAILY [facility] Stop: 02/24/24 09:01 Phenobarbital Sodium (Phenobarbital Sodium 130 Mg/Ml Vial Im Q3hx2) 160 mg IM Q3H [facility] Stop: 02/19/24 13:31 <Pamella Cantu PA-C - Last Filed: 02/19/24 10:30> Home medications: Home Medications ?Medication ?Instructions ?Recorded ?Confirmed ?Last Taken ?Type buprenorphine 8 mg-naloxone 2 mg 1 strip sublingual DAILY 12/17/21 02/19/24 12/16/21 History sublingual film (Suboxone) folic acid 1 mg tablet 1 mg PO DAILY 02/19/24 02/19/24 Unknown History thiamine HCl (vitamin B1) 100 mg 100 mg PO TID 02/19/24 02/19/24 Unknown History tablet topiramate 100 mg tablet 100 mg PO DAILY 02/19/24 Unknown History topiramate 50 mg tablet 50 mg PO DAILY 02/19/24 Unknown History <FRANKIE Roldan Last Filed: 02/19/24 10:30> Physical Exam 2 Vital Signs and Narrative: Vital Signs: Last Vital Signs Temp 98.3 F 02/19/24 08:37 Pulse 68 02/19/24 08:37 Resp 12 02/19/24 08:37 BP 122/86 02/19/24 08:37 Pulse Ox 98 02/19/24 08:37 O2 Del Method Room Air 02/19/24 08:37 BMI result Body Mass Index 19.7 <FRANKIE Roldan Last Filed: 02/19/24 10:30> General: AOx3, no acute distress Resp: CTA bilaterally CVS: S1, S2, RRR GI: +BS, NT, no distention Skin: Warm, dry Extremities: No edema Psych: Appropriate affect <FRANKIE Roldan Last Filed: 02/19/24 10:30> Const: General: No confusion <FRANKIE Roldan Last Filed: 02/19/24 10:30> Orientation/consciousness: No confusion <FRANKIE Roldan Last Filed: 02/19/24 10:30> Neuro: General: No confusion <FRANKIE Roldan Last Filed: 02/19/24 10:30> Results Labs CBC and Chem 7: 02/18/24 22:30 02/18/24 22:30 <FRANKIE Roldan Last Filed: 02/19/24 10:30> Labs: Laboratory Results - last 24 hr 02/18/24 02/19/24 22:30 03:33 MCV 101.8 H MCH 36.8 H MCHC 36.1 H RDW 14.7 Plt Count 175 MPV 9.5 Immature Gran % (Auto) 0.4 Neut % (Auto) 66.5 Lymph % (Auto) 19.1 L [place] % (Auto) 13.0 H Eos % (Auto) 0.2 Baso % (Auto) 0.8 Lymph # (Auto) 0.9 L Will # (Auto) 0.6 Eos # (Auto) 0.0 Baso # (Auto) 0.0 Abs Immat Gran (auto) 0.02 Absolute Neuts (auto) 3.3 Absolute Nucleated RBC 0.000 Nucleated RBC % (auto) 0.0 Anion Gap 19 Estim Creat Clear Calc 86.9 Estimated GFR > 60 Random Glucose 114 Calcium 9.5 Magnesium 1.7 Total Bilirubin 1.1 H AST 168 H ALT 43 H Alkaline Phosphatase 101 Total Protein 7.7 Albumin 4.8 Urine Color Dark Yellow Urine Appearance Clear Urine pH 8.5 Ur Specific [place] 1.025 Urine Protein 100 (2+) H Urine Glucose (UA) Negative Urine Ketones Trace Urine Blood Negative Urine Nitrite Negative Ur Leukocyte Esterase Negative Urine RBC 0-2 Urine WBC 0-5 Ur Squamous Epith Cells 6-10 Urine Bacteria 1+ Hyaline Casts 3-5 Urine Opiates Screen Not Detected Ur Buprenorphine Scrn Positive H Ur Oxycodone Screen Not Detected Urine Methadone Screen Not Detected Urine Fentanyl Screen Not Detected Ur Barbiturates Screen Not Detected Ur Phencyclidine Scrn Not Detected Ur Amphetamines Screen Not Detected U Benzodiazepines Scrn Not Detected Urine Cocaine Screen Not Detected U Marijuana (THC) Screen POSITIVE H Ethyl Alcohol 88 <FRANKIE Roldan Last Filed: 02/19/24 10:30> Assessment and Plan (1) Alcohol withdrawal: Qualifiers: Complication of substance-induced condition: uncomplicated Qualified Code(s): F10.930 - Alcohol use, unspecified with withdrawal, uncomplicated <Pamella Cantu PA-C - Last Filed: 02/19/24 10:30> Status: Acute <Pamella Cantu PA-C - Last Filed: 02/19/24 10:30> (2) Opioid abuse: Status: Acute <Pamella Cantu PA-C - Last Filed: 02/19/24 10:30> Patient is a 38-year-old female with a past medical history significant for alcohol use, AGUS on Suboxone x5 years and history of pancreatitis, who reported to the ED yesterday to 2 alcohol withdrawal. CIWA scores have been ranging up to 14, based on history I obtained, 11. Alcohol withdrawal - phenobarb protocol - continue CIWAs - thiamine 100mg QD, folate 1mg QD, MVI QD - zofran PRN for nausea - mag 1.7, addded mag 800mg PO x1 - K 3.7, add small dose of K 20meq - check folate and B12 - addiction med consult AGUS - continue suboxone full code VTE prohpy: pneumoboots and lovenox Pt with etoh withdrawal and high CIWA scores requiring admission for medical withdrawal and monitoring for at least 2 midnights stay. <Pamella Cantu PA-C - Last Filed: 02/19/24 10:30> Patient is a 38-year-old female with a past medical history significant for alcohol use, AGUS on Suboxone x5 years and history of pancreatitis, who reported to the ED yesterday to 2 alcohol withdrawal. CIWA scores have been ranging up to 14, based on history I obtained, 11. Alcohol withdrawal - phenobarb protocol - continue CIWAs - thiamine 100mg QD, folate 1mg QD, MVI QD - zofran PRN for nausea - mag 1.7, addded mag 800mg PO x1 - K 3.7, add small dose of K 20meq - check folate and B12 - addiction med consult AGUS - continue suboxone full code VTE prohpy: pneumoboots and lovenox Pt with etoh withdrawal and high CIWA scores requiring admission for medical withdrawal and monitoring for at least 2 midnights stay. Addendum to history and physical by the advanced practice provider, Ramses Cantu I interviewed and examined the patient. I discussed their presentation and management with the GURVINDER. I reviewed the history and physical and agree with the documentation, with the following additions and corrections: 38yo F with OUD + AUD presenting with withdrawal symptoms, CIWA 11. Plan admit to hospitalist service on phenobarbital taper; Addiction Medicine consult; thiamine; folate <Andriy Byrd MD - Last Filed: 02/19/24 14:34> Quality Stroke Does the patient have a stroke diagnosis?: No <Pamella Cantu PA-C - Last Filed: 02/19/24 10:30> VTE Prior VTE?: No <Pamella Cantu PA-C - Last Filed: 02/19/24 10:30> VTE Risk Level:: Medical - moderate - high <Pamella Cantu PA-C - Last Filed: 02/19/24 10:30> VTE Device Contraindication: N/A - Device Ordered <Pamella Cantu PA-C - Last Filed: 02/19/24 10:30> VTE Drug Contraindication: N/A - Med Ordered <Pamella Cantu PA-C - Last Filed: 02/19/24 10:30>
[2024-02-19] MEDS: Nicotine 14 MG PATCH.TD24 TRANSDERMA (10:00)
[2024-02-19] MEDS: Multivitamin TABLET 1 TAB PO (10:01)
[2024-02-19] MEDS: Enoxaparin Sodium 40 MG/0.4 ML SYRINGE SUBCUT (10:01)
[2024-02-19] MEDS: Thiamine HCL 100 MG TABLET PO (10:01)
[2024-02-19] MEDS: Folic Acid 1 MG TABLET PO (10:01)
[2024-02-19] MEDS: Magnesium Oxide 400 MG TABLET 800 MG PO (10:01)
[2024-02-19] MEDS: PHENobarbitaL sodium 130 MG/ML VIAL IM Q3Hx2 160 MG IM ×2 (10:01→13:33)
[2024-02-19 10:14] LABS: Folate 6.5 ng/mL (> or = 4.0); Vitamin B12 548 pg/mL (200-900)
--- NOTE | 2024-02-19 10:58 | PHA.MEDREC ---
Pharmacy Consult ? Medication Reconciliation Pharmacy has completed the medication reconciliation, was unable to wake the patient so tried calling her spouse Charlie with no success. Called [facility] pharmacy where patient fills, confirmed that she recently picked up suboxone 11/27 for a 7 day supply on 02/17/24, and has picked up the folic acid and thiamine both for 90 day supply's. Also mentioned that the patient has not been picking up her topiramate regularly and it was currently on hold and she has not picked up since 09/2023 so those were left unconfirmed.
[2024-02-19] MEDS: Acetaminophen 325 MG TABLET 650 MG PO ×2 (13:33→20:22)
[2024-02-19] MEDS: Buprenorphine/Naloxone 8/2 mg FILM 1 FILM SUBLINGUAL (13:33)
[2024-02-19] MEDS: 0.9 % Sodium Chloride Flush 3 ML SYRINGE IVFLUSH (16:55)
[2024-02-19] MEDS: PHENobarbitaL 15 MG TABLET 45 MG PO (20:22)
[2024-02-19] MEDS: Melatonin 3 MG TABLET 6 MG PO (20:22)
[2024-02-20] MEDS: 0.9 % Sodium Chloride Flush 3 ML SYRINGE IVFLUSH ×2 (01:00→08:12)
[2024-02-20 03:22] VITALS: BP 128/89; PULSE 88; RESP 20; TEMP 36.3; O2SAT 97
[2024-02-20 07:02] LABS: MANUAL DIFF FLAG NO
[2024-02-20 07:19] LABS: Basophils Percent Auto 0.5 % (0-2); Eosinophils Absolute Auto 0.2 X10*3/uL (0.0-0.4); Eosinophils Percent Auto 4.5 % (0-4); Hematocrit 38.6 % (37.0-47.0); Hemoglobin 13.8 g/dl (12.0-16.0); Imm Gran Abs Auto 0.03 X10*3/uL (0.00-0.03); Imm Gran Pct Auto 0.7 % (0.0-0.4); Lymphocytes Absolute Auto 1.3 X10*3/uL (1.2-4.9); Lymphocytes Percent Auto 31.9 % (20-40); Mean Corpuscular HGB Conc 35.8 g/dl (31.0-35.0); Mean Corpuscular Hemoglobin 36.7 pg (27.0-33.0); Mean Corpuscular Volume 102.7 fL (80.0-98.0); Mean Platelet Volume 10.3 fL (9.4-12.3); Monocytes Absolute Auto 0.4 X10*3/uL (0.1-1.2); Monocytes Percent Auto 9.7 % (2-11); Neutrophils Absolute Auto 2.1 x10*3/uL (2.0-8.3); Neutrophils Percent Auto 52.7 % (45-73); Platelet Count 141 X10*3/uL (160-400); Red Blood Count 3.76 X10*6/uL (4.20-5.50); Red Cell Distribution Width 14.1 % (11.0-16.0)
[2024-02-20 07:35] LABS: Anion Gap 12 (12-20); Blood Urea Nitrogen 6 mg/dL (9-16); Calcium 9.1 mg/dL (8.4-10.2); Carbon Dioxide 29 mmol/L (22-29); Chloride 96 mmol/L (96-108); Creatinine Clr Calc Pharmacy 80.2; Estimated Glomerular Filt Rate > 60; Glucose Random 77 mg/dL (60-115); Potassium 3.9 mmol/L (3.3-5.1); Sodium 133 mmol/L (135-145)
[2024-02-20 07:36] VITALS: BP 128/91; PULSE 122; RESP 16; TEMP 36.9; O2SAT 98
[2024-02-20] MEDS: Nicotine 14 MG PATCH.TD24 TRANSDERMA (08:12)
[2024-02-20] MEDS: Enoxaparin Sodium 40 MG/0.4 ML SYRINGE SUBCUT (08:12)
[2024-02-20] MEDS: Buprenorphine/Naloxone 8/2 mg FILM 1 FILM SUBLINGUAL (08:12)
[2024-02-20] MEDS: Thiamine HCL 100 MG TABLET PO (08:13)
[2024-02-20] MEDS: Multivitamin TABLET 1 TAB PO (08:13)
[2024-02-20] MEDS: Topiramate 100 MG TABLET PO (08:13)
[2024-02-20] MEDS: PHENobarbitaL 15 MG TABLET 45 MG PO (08:13)
[2024-02-20] MEDS: Folic Acid 1 MG TABLET PO (08:13)
[2024-02-20] MEDS: Topiramate 25 MG TABLET 50 MG PO (08:13)
--- NOTE | 2024-02-20 08:35 | MHC.CM.PN ---
CM met with Patient at bedside. Patient lives in a house with her /HCP/Charlie and she is functionally independent. Patient obtains her Suboxone from [facility] in [place] and home/resume said services is the goal (patient may benefit from a Recovery Team Consult r/t ETOH). CM has initiated and will follow for dc planning. PCP is Dr. Jamal Joshi and Patient's or Mother will transport to home.
--- NOTE | 2024-02-20 10:24 | MHC.RECOVSUP ---
Patient disclosed she drinks a sleeve of vodka nips a day, starting with 1-2 within the first hour of waking up. Patient was given a folder containing resources including IOP contact info she will follow up on. Patient was referred for a Sous [employer] through [employer]. Discussed with patient pathways to recovery, the importance of a support system, and fellowship.
--- NOTE | 2024-02-20 10:26 | MHC.RECOVRN ---
AUDIT-C Brief Intervention Pt had positive screen for unhealthy alcohol use on admission, subsequently met with t/w to discuss alcohol use and recovery supports/options. This group underwriter met with patient to discuss current alcohol use and concerns related to increased risk of alcohol related problems.? Pt reports 10 nips vodka daily x 2 or 3 months. Discussed how alcohol use has impacted health, including negative impact on overall physical wellbeing. Withdrawal History: denies hx withdrawal seizures Treatment History: this is 3rd medical admission for alcohol withdrawal, denies other treatment Supports:? and mom Discussed risk reduction strategies including drinking below the recommended limit. Provided pt with written resources including information on inpatient and outpatient treatment, KIRAN, harm reduction, and recovery coaching. Pt plans to discuss KIRAN with [facility] (where pt receives Suboxone) and speak with recovery room nurse. Pt provided with t/w contact information if questions or concerns arise. Denies other questions or concerns at this time.? Of note, pt reports she has been on Suboxone for 5 years, denies cravings or opioid use.
[2024-02-20] MEDS: LORazepam 2 MG/ML VIAL 0.5 MG IVPUSH (10:36)
[2024-02-20] MEDS: ondansetron HCL 4 MG/2 ML VIAL IVPUSH (10:37)
--- NOTE | 2024-02-20 11:50 | P.PNIM_ITS ---
Subjective Subjective Date of Service: 02/20/24 Interval History: seems anxious, mild tremors Physical Exam 2 Vital Signs: Vital Signs: Last Vital Signs Temp 98.4 F 02/20/24 07:36 Pulse 122 H 02/20/24 07:36 Resp 16 02/20/24 07:36 BP 128/91 H 02/20/24 07:36 Pulse Ox 98 02/20/24 07:36 O2 Del Method Room Air 02/20/24 07:36 BMI result Body Mass Index 19.7 Const: Other: General: AO X 3, no acute distress Resp: CTA bilateral CVS: S1,S2,RRR GI: +BS, NT, no distention Skin: No rash Neuro: motor grossly intact Psych: appropriate affect Objective Data Active Medications Acetaminophen (Acetaminophen 325 Mg Tablet) 650 mg PO Q6H PRN PRN Reason: Pain, Mild (Pain Scale 1-3), fever or headache Last Admin: 02/19/24 20:22 Dose: 650 mg Documented By: TONJA Buprenorphine/Naloxone (Buprenorphine/Naloxone 8/2 Mg Film) 1 film SUBLINGUAL DAILY [facility] Last Admin: 02/20/24 08:12 Dose: 1 film Documented By: STONE Calcium Carbonate (Calcium Carbonate 750 Mg Tab.Chew) 750 mg PO Q4H PRN PRN Reason: Heartburn Enoxaparin Sodium (Enoxaparin Sodium 40 Mg/0.4 Ml Syringe) 40 mg SUBCUT Q24H [facility] Last Admin: 02/20/24 08:12 Dose: 40 mg Documented By: STONE Folic Acid (Folic Acid 1 Mg Tablet) 1 mg PO DAILY [facility] Last Admin: 02/20/24 08:13 Dose: 1 mg Documented By: STONE Lorazepam (Lorazepam 2 Mg/Ml Vial) 0.5 mg IVPUSH Q6H PRN PRN Reason: Anxiety Last Admin: 02/20/24 10:36 Dose: 0.5 mg Documented By: STONE Magnesium Hydroxide (Milk Of Magnesia 30 Ml Oral.Susp) 30 ml PO DAILY PRN PRN Reason: Constipation Melatonin (Melatonin 3 Mg Tablet) 6 mg PO BEDTIME PRN PRN Reason: Insomnia Last Admin: 02/19/24 20:22 Dose: 6 mg Documented By: TONJA Multivitamins/Vitamin C (Multivitamin Tablet) 1 tab PO DAILY [facility] Last Admin: 02/20/24 08:13 Dose: 1 tab Documented By: STONE Nicotine (Nicotine 14 Mg Patch.Td24) 14 mg TRANSDERMA DAILY [facility] Last Admin: 02/20/24 08:12 Dose: 14 mg Documented By: STONE Ondansetron HCl (Ondansetron Hcl 4 Mg/2 Ml Vial) 4 mg IVPUSH Q8H PRN PRN Reason: Nausea and Vomiting Last Admin: 02/20/24 10:37 Dose: 4 mg Documented By: STONE Pharmacy Consult (Consult Rx Etoh Phenob Im/Po) 1 each MISCELLANE ONCE PRN; Protocol PRN Reason: Consult order Phenobarbital (Phenobarbital 15 Mg Tablet) 45 mg PO BID [facility] Stop: 02/21/24 09:01 Last Admin: 02/20/24 08:13 Dose: 45 mg Documented By: STONE Phenobarbital (Phenobarbital 30 Mg Tablet) 30 mg PO BID [facility] Stop: 02/23/24 09:01 Phenobarbital (Phenobarbital 30 Mg Tablet) 30 mg PO DAILY [facility] Stop: 02/24/24 09:01 Sodium Chloride (0.9 % Sodium Chloride Flush 3 Ml Syringe) 3 ml IVFLUSH QSHIFT [facility] Last Admin: 02/20/24 08:12 Dose: 3 ml Documented By: STONE Thiamine HCl (Thiamine Hcl 100 Mg Tablet) 100 mg PO DAILY [facility] Last Admin: 02/20/24 08:13 Dose: 100 mg Documented By: STONE Topiramate (Topiramate 100 Mg Tablet) 100 mg PO DAILY [facility] Last Admin: 02/20/24 08:13 Dose: 100 mg Documented By: STONE Topiramate (Topiramate 25 Mg Tablet) 50 mg PO DAILY [facility] Last Admin: 02/20/24 08:13 Dose: 50 mg Documented By: STONE Labs 02/20/24 06:24 02/20/24 06:24 Labs: Laboratory Results - last 24 hr 02/20/24 06:24 MCV 102.7 H MCH 36.7 H MCHC 35.8 H RDW 14.1 Plt Count 141 L MPV 10.3 Immature Gran % (Auto) 0.7 H Neut % (Auto) 52.7 Lymph % (Auto) 31.9 [place] % (Auto) 9.7 Eos % (Auto) 4.5 H Baso % (Auto) 0.5 Lymph # (Auto) 1.3 [place] # (Auto) 0.4 Eos # (Auto) 0.2 Baso # (Auto) 0.0 Abs Immat Gran (auto) 0.03 Absolute Neuts (auto) 2.1 Absolute Nucleated RBC 0.000 Nucleated RBC % (auto) 0.0 Anion Gap 12 Estim Creat Clear Calc 80.2 Estimated GFR > 60 Random Glucose 77 Calcium 9.1 Assessment and Plan (1) Alcohol withdrawal: Status: Resolved (2) UTI (urinary tract infection): Status: Acute Plan 36-year-old female with past medical history of alcohol abuse presents the hospital with alcohol withdrawal #? alcohol abuse with alcohol withdrawal -? patient drinks about 10 shots? of hard liquor daily,l rylie lopez continue phenobarb? protocol and thiamine and folic acid, care team consult -ativan prn for anxiety #? acute dehydration, hydrated with IVF #? nausea and vomiting -? secondary to above -? improving with antiemetics -? IV fluids #? hypomagnesemia -? likely secondary to alcohol abuse -? repleted and resolved addedpo suppl. #? UTI -? patient denies symptoms at this time but given her acute illness and hospitalization will treat with IV antibiotics, urine culture/blood culture pending ?DVT prophylaxis:? Lovenox inpatient need: alcohol withdrawals on pheonobarbital proticol,dehydration Quality Stroke Does the patient have a stroke diagnosis?: No VTE Prior VTE?: No VTE Risk Level:: Medical - moderate - high VTE Device Contraindication: N/A - Device Ordered VTE Drug Contraindication: N/A - Med Ordered
[2024-02-20 11:54] VITALS: BP 120/95; PULSE 90; RESP 18; TEMP 37.2; O2SAT 98
[2024-02-20 12:31] LABS: Magnesium 2.4 mg/dL (1.6-2.6)
[2024-02-20 15:13] VITALS: BP 130/100; PULSE 116; RESP 18; TEMP 37.3; O2SAT 98
--- NOTE | 2024-02-20 16:12 | P.DS_ITS ---
DS: Providers Provider Date of Service: 02/20/24 Date of admission: 02/19/24 08:51 Primary care physician: Jamal Joshi MD Consults: 02/19/24 08:48 Addiction Medicine Routine Consulting Provider: Addiction Covering Reason for consultation: etoh abuse/withdrawal Has provider been notified: No DS: Diagnosis Discharge Diagnosis (1) Alcohol withdrawal: Status: Resolved (2) UTI (urinary tract infection): Status: Acute DS: Summary Hospital Course Hospital Course: hospitla course: Patient is a 38-year-old female with a past medical history significant for alcohol use, on Suboxone x5 years and history of pancreatitis, who reported to the ED yesterday to 2 alcohol withdrawal. She reports she drinks 1 sleeve of nips per day. She has been sober from opioids but continues to take Suboxone for the past 5 years. She was his smokes 1 pack of cigarettes a day. She is moderately anxious but denies agitation, no numbness tingling visual or auditory hallucinations. Headache has improved. She reports she was vomiting significantly however this has also improved. In the past she has required 1 admission for alcohol withdrawal and in August of this year was treated outpatient with Ativan however she resumed drinking. She denies history of alcohol withdrawal seizures or DTs. <Pamella Cantu PA-C - Last Filed: 02/19/24 10:30> Patient is a 38-year-old female with a past medical history significant for alcohol use, AGUS on Suboxone x5 years and history of pancreatitis, who reported to the ED yesterday to 2 alcohol withdrawal. CIWA scores have been ranging up to 14, based on history I obtained, 11. Alcohol withdrawal--treated with phenobarbitl protocol with good effect. Her symptoms have resolved. She was counselled on need for alcohol cessation with her and her mom whom she was going to stay with AGUS - continue suboxone Time Attestation Discharge Coordination Time (in mins): 45 Quality: Safe Use of Opioids Does Pt have an Active Cancer Diagnosis on the Problem List?: No Quality: Stroke Does the patient have a stroke diagnosis?: No Physical Exam Vital Signs: Vital Signs: Last Vital Signs Temp 99.2 F 02/20/24 15:13 Pulse 116 H 02/20/24 15:13 Resp 18 10/25/24 15:13 BP 130/100 H 10/25/24 15:13 Pulse Ox 98 02/20/24 15:13 O2 Del Method Room Air 02/20/24 15:13 BMI result Body Mass Index 19.7 Const: Other: General: AO X 3, no acute distress Resp: CTA bilateral CVS: S1,S2,RRR GI: +BS, NT, no distention Skin: No rash Neuro: motor grossly intact Psych: appropriate affect DS: Data Data Completed and Pending Completed studies during hospitalization [Text1]: Procedures Detoxification Services for Substance Abuse Treatment (11/16/20) Labs on day of discharge: Laboratory Results - last 24 hr 02/20/24 06:24 WBC 4.0 L RBC 3.76 L Hgb 13.8 Hct 38.6 MCV 102.7 H MCH 36.7 H MCHC 35.8 H RDW 14.1 Plt Count 141 L MPV 10.3 Immature Gran % (Auto) 0.7 H Neut % (Auto) 52.7 Lymph % (Auto) 31.9 [place] % (Auto) 9.7 Eos % (Auto) 4.5 H Baso % (Auto) 0.5 Lymph # (Auto) 1.3 [place] # (Auto) 0.4 Eos # (Auto) 0.2 Baso # (Auto) 0.0 Abs Immat Gran (auto) 0.03 Absolute Neuts (auto) 2.1 Absolute Nucleated RBC 0.000 Nucleated RBC % (auto) 0.0 Sodium 133 L Potassium 3.9 Chloride 96 Carbon Dioxide 29 Anion Gap 12 BUN 6 L Creatinine 0.79 Estim Creat Clear Calc 80.2 Estimated GFR > 60 Random Glucose 77 Calcium 9.1 Magnesium 2.4 Discharge Plan Discharge Anticipated Discharge Date/Time: 02/20/24 16:06 Patient Disposition: Home, Self-Care Discharge Diagnosis: alcohol withdrawal Referrals: Jamal Joshi MD [Primary Care Provider] - 1 Week Discharge Medications: Continued buprenorphine-naloxone [Suboxone] 8-2 mg film 1 strip sublingual DAILY thiamine HCl (vitamin B1) 100 mg tablet 100 mg PO TID folic acid 1 mg tablet 1 mg PO DAILY topiramate 100 mg tablet 100 mg PO DAILY topiramate 50 mg tablet 50 mg PO DAILY Discontinued ondansetron 4 mg tablet,disintegrating 4 mg PO TID PRN (Reason: nausea and vomiting) 5 Days Qty: 10 0RF Discharge Orders: Discharge Order (Routine); Ordered 02/20/24 Ordered By: César Price Diet: Advance to usual diet Activity on Discharge: As tolerated Stand Alone Forms: Patient Portal Discharge page Print Language: [place] Care Plan Goals: abstinence from alcohol Health Concerns: alcohol use disorder Plan of Treatment: avoid alcohol, participate in program given to you by recovery team Assessment: see above Patient Instructions: Alcohol Use Disorder (ED) Discharge Date/Time: 02/20/24 16:48
[2024-02-20 16:16] VITALS: PULSE 96
--- NOTE | 2024-02-20 16:17 | MHC.CM.PN ---
Patient has been medically cleared for dc to home today, self care.
== END 2024-02-20 16:48 | disposition home or self-care (01) | DRG 773 ==
LOC: HO.ED 02-19 06:56 → HO.EDOVER 02-19 09:02 → HO.IMC 02-19 11:26
PROVIDERS: Student in an Organized Health Care Education/Training Program; Admitting Provider Physician Assistant; Emergency Provider Internal Medicine; PCP Internal Medicine; Visit Provider Internal Medicine
DX: F10.139 Alcohol abuse with withdrawal, unspecified (principal); F11.20 Opioid dependence, uncomplicated; E83.42 Hypomagnesemia; E86.0 Dehydration; F17.210 Nicotine dependence, cigarettes, uncomplicated; Z71.6 Tobacco abuse counseling; Y90.4 Blood alcohol level of 80-99 mg/100 ml
CPT/HCPCS: 36415; 80048; 80053; 80307; 81001; 82607; 82746; 83735; 85025; 93005; 99285; J1650; J2060; J2405; J2560; J3360; J3475

== ENCOUNTER → 2024-02-19 04:16 | Outpatient (BNV) | payer OTHER, SELFPAY | PROVIDERS: Admitting Provider Physician Assistant; Emergency Provider Internal Medicine; PCP Internal Medicine; Visit Provider Internal Medicine Cardiovascular Disease | DX: F10.230 Alcohol dependence with withdrawal, uncomplicated (principal) | CPT/HCPCS: 93010 ==

== ENCOUNTER → 2024-02-19 08:51 | Outpatient (BNV) | payer OTHER, SELFPAY | PROVIDERS: Admitting Provider Physician Assistant; Emergency Provider Internal Medicine; PCP Internal Medicine; Visit Provider Physician Assistant | DX: F10.939 Alcohol use, unspecified with withdrawal, unspecified (principal); N39.0 Urinary tract infection, site not specified | CPT/HCPCS: 99223; 99239 ==

== ENCOUNTER 2024-06-28 15:21 | Outpatient (REF) | payer OTHER, SELFPAY ==
--- NOTE | ~2024-06-28 | US_ITS ---
CLINICAL HISTORY: N89.8 - Other specified noninflammatory disorders of vagina US pelvis transabdominal and transvaginal Comparison: None Findings: Transabdominal scanning performed for overall anatomy. Transvaginal scanning performed for additional detail. Anteverted uterus is 6.9 cm length. Normal myometrium. Endometrium 4 mm thickness. There is a 2.7 x 1.3 x 3.3 cm simple appearing cyst associated with the vaginal wall. Right ovary 3.9 x 1.8 x 2.0 cm. Left ovary 2.8 x 1.3 x 3.7 cm. Normal color Doppler of both ovaries. There are multiple small follicles within the bilateral ovaries. No free fluid. IMPRESSION: 3.3 cm vaginal cyst. This document has been electronically signed by: Sammie Oliver MD on 06/29/2024 15:09:30
== END 2024-06-28 15:22 | disposition home or self-care (01) ==
LOC: HO.US 15:21
PROVIDERS: Visit Provider Advanced Practice Midwife
DX: N89.8 Other specified noninflammatory disorders of vagina (principal)
CPT/HCPCS: 76830; 76856

== ENCOUNTER → 2024-06-28 15:22 | Outpatient (BNV) | payer OTHER, SELFPAY | PROVIDERS: Visit Provider Radiology Diagnostic Radiology | DX: N89.9 Noninflammatory disorder of vagina, unspecified (principal) | CPT/HCPCS: 76830; 76856 ==

== ENCOUNTER 2024-09-07 15:03 | Inpatient (IN) | payer OTHER, SELFPAY ==
--- NOTE | ~2024-09-07 | XR_ITS ---
CLINICAL HISTORY: Upper lumbar area pain 3 views lumbar spine Comparison: None Findings: No acute fractures or dislocation. No significant degenerative change. Mild dextrocurvature. IMPRESSION: No acute findings. Mild dextrocurvature. No significant spondylosis. This document has been electronically signed by: Cleo Cortes MD on 09/07/2024 19:32:01
[2024-09-07 15:19] VITALS: BP 151/117; PULSE 102; RESP 18; TEMP 36.8; O2SAT 96; BMI 16.3
--- NOTE | 2024-09-07 15:19 | ED.GENADULT ---
HPI - General Adult General Chief complaint: ETOH/Substance Use Stated complaint: alcohol withdrawl Time Seen by Provider: 09/07/24 15:45 Source: patient, RN notes reviewed and old records reviewed Mode of arrival: ambulatory History of Present Illness ED Provider: Octavia Medrano PA-C HPI narrative: 39-year-old female with a past medical history of opiate abuse on Suboxone, ETOH abuse, presenting to the ED complaining of ETOH withdrawal and requesting detox. Admits to drinking about a sleeve of vodka daily, last drink around 1800 last night. Denies history of withdrawal seizures. Reports associated nausea, vomiting, and back pain. Denies illicit substance use, CP/SOB, abdominal pain Related Data Home Medications ?Medication ?Instructions ?Recorded ?Confirmed buprenorphine 8 mg-naloxone 2 mg 1 strip sublingual DAILY 12/17/21 02/19/24 sublingual film (Suboxone) folic acid 1 mg tablet 1 mg PO DAILY 02/19/24 02/19/24 thiamine HCl (vitamin B1) 100 mg 100 mg PO TID 02/19/24 02/19/24 tablet topiramate 100 mg tablet 150 mg PO DAILY 02/19/24 02/19/24 topiramate 50 mg tablet 50 mg PO DAILY 02/19/24 02/19/24 nicotine (polacrilex) 2 mg gum 2 mg PO Q2-3H PRN nicotine cravings 09/07/24 topiramate 100 mg tablet 100 mg PO BEDTIME 09/07/24 09/07/24 Allergies Allergy/AdvReac Type Severity Reaction Status Date / Time Penicillins [PENICILLINS] Allergy Intermediate HIVES Verified 09/07/24 15:21 Review of Systems Review of Systems: Yes all other systems are reviewed and are negative Constitutional: Constitutional: Reports as per HPI Neurologic: Denies Abnormal speech present [facility] Past Medical History Attestation statement: The following information was validated with the patient. Source: old records reviewed Medical History Opioid abuse Alcohol abuse Pancreatitis Surgical History History of tonsillectomy and adenoidectomy [place] teeth extracted Family History Family History Mother No problems noted. Father Alcoholic Sister Hypertension Maternal Grandmother Breast cancer Paternal Grandmother Breast cancer Other No family history of coronary artery disease Social History Social History Household Members: Spouse Housing: House Do you presently have visiting nurse or other home services: No Alcohol intake: current Alcohol intake frequency: 3 or more drinks per day Alcohol type: hard liquor Patient Tobacco Use Status: Current everyday Tobacco user Tobacco use type: Cigarette Cigarette Packs Per Day: 0.5 Cigarettes Per Day: 10.0 Years Smoked: 10 Smoked in Last 30 Days: Yes Second Hand Smoke Exposure: No Use of substances other than those prescribed or required for medical reasons: Yes Substance Use Type: Opiates Substance Use Type Other:: on suboxone Substance Use Frequency Other:: pt states she's clean Any prior treatment program specific to substance use: Yes Advance Directives: Yes Advance Directives on File: Yes Advance Directives Date on File: 11/16/20 Patient : No service: No Current occupational status: employed Cognitive needs: No Hearing needs: No Vision needs: No Physical Exam ED Vital Signs: Vital Signs - 24 hr 09/07/24 15:19 09/07/24 17:01 Temperature 98.3 F 98.3 F Pulse Rate 102 H 94 Respiratory Rate 18 18 Blood Pressure 151/117 H 133/98 H Pulse Oximetry 96 96 Oxygen Delivery Method Room Air Room Air BMI result Body Mass Index 16.3 Const General: cooperative, healthy appearing and no acute distress Orientation/consciousness: patient oriented x3 Limitations: no limitations HENMT Head: Yes normal to inspection and Yes atraumatic Ears: hearing grossly normal bilaterally General nose exam: Normal external nose present Face and sinus: Yes normal facial exam Eyes General: appearance normal, both eyes and all related structures EOM: EOMs intact bilaterally Neck Neck: Yes normal visual inspection and Yes no meningeal signs Resp Effort & Inspection: normal respiratory effort and no respiratory distress Auscultation: clear to auscultation bilaterally Cardio Rate: regular rate Heart sounds: S1 normal heart sound present and S2 normal heart sound present GI Inspection: Yes normal to inspection Palpation (GI): Soft to palpation, nontender, no guarding and not rigid General: Yes no CVA tenderness Back/Spine/Pelvis Back: no CVA tenderness Skin Rashes: no rashes Wounds: no wounds Neuro Other: mildly tremulous. No tongue fasciculations General: patient oriented x3, tone normal, moves all extremities and no meningeal signs Cranial nerves: Yes CN's II-XII intact bilaterally Cognition (Neuro): normal cognition Speech: No Abnormal speech present Gait exam (Neuro): Normal gait present Extrem General: Yes normal to inspection Course Course Course Narrative: This is a rapid medical exam performed by Matt Greer NP: Additional HPI, ROS, PE not included below will be deferred to primary provider. Patient is a 39-year-old female presenting to the ED seeking detox from alcohol. Drinks a sleeve of vodka daily. Last drink 8pm yesterday. Denies drug use. Denies history of withdrawal seizures. Complaining of mid back pain. Plan: labs, CIWA - CIWA = 19 > IV Valium given -1710-- patient is still nauseous, unable to tolerate p.o., and mildly tremulous. CIWA = 13. Will initiate phenobarb protocol and plan for admission - + transaminitis likely from ETOH abuse. Lipase 109 > Will discuss case with hospitalist Medications Administered Discontinued Medications Generic Name Dose Route Start Last Admin Trade Name Freq PRN Reason Stop Dose Admin Diazepam 2.5 mg 09/07/24 16:10 09/07/24 16:45 Diazepam 10 Mg/2 Ml Cartridge IVPUSH 09/07/24 16:11 2.5 mg STAT STA Administration Sodium Chloride 1,000 mls @ 999 mls/hr 09/07/24 16:00 09/07/24 16:45 Ns IV 09/07/24 17:00 999 mls/hr .Q1H1M NESS Administration Lactated Ringer's 1,000 mls @ 999 mls/hr 09/07/24 16:15 09/07/24 17:36 Lr IV 09/07/24 17:15 Not Given .Q1H1M NESS Metoclopramide HCl 10 mg 09/07/24 17:06 09/07/24 17:30 Metoclopramide Hcl 10 Mg/2 Ml Vial IVPUSH 09/07/24 17:07 10 mg ONCE ONE Administration Ondansetron HCl 4 mg 09/07/24 15:52 09/07/24 16:12 Ondansetron Hcl 4 Mg/2 Ml Vial IVPUSH 09/07/24 15:53 4 mg ONCE ONE Administration Phenobarbital Sodium 172 mg 09/07/24 17:30 09/07/24 17:30 Phenobarbital Sodium 130 Mg/Ml Im Once IM 09/07/24 17:31 172 mg ONCE ONE Administration Medical Decision Making Medical Decision Making [facility] Narrative: 39-year-old female with a past medical history of opiate abuse on Suboxone, ETOH abuse, presenting to the ED complaining of ETOH withdrawal and requesting detox. on exam hypertensive, tachycardic - likely from ETOH withdrawal, low suspicion for infectious etiology, mildly tremulous, no tongue fasciculations, concern for ETOH withdrawal. Rule out metabolic abnormalities. Lower suspicion for hypertensive urgency/ emergency at this time. low suspicion for severe sepsis Plan: EKG, labs, TERESA, CIWA, symptomatic medications, IVF, recovery team consult for detox, +/- admission Please refer to course for remaining clinical decision making, interpretation of labs/imaging results, and discussions with consultants and/or family members. Differential Diagnosis Differential Diagnoses: The differential diagnosis associated with the presentation includes As above Admission/Observation Consideration of admission/observation: Escalation of care including admission/observation considered Consult Healthcare Provider Management of the patient was discussed with: Maintenance Carpenter Lab Data [facility] Lab Attestation statement: I reviewed the patient's lab results. 09/07/24 15:29 09/07/24 15:29 Labs: Lab Results 09/07/24 Range/Units 15:29 WBC 4.2 L (4.8-10.8) X10*3/uL RBC 4.34 (4.20-5.50) X10*6/uL Hgb 15.6 (12.0-16.0) g/dl Hct 43.4 (37.0-47.0) % MCV 100.0 H (80.0-98.0) fL MCH 35.9 H (27.0-33.0) pg MCHC 35.9 H (31.0-35.0) g/dl RDW 12.2 (11.0-16.0) % Plt Count 175 (160-400) X10*3/uL MPV 9.4 (9.4-12.3) fL Immature Gran % (Auto) 0.5 H (0.0-0.4) % Neut % (Auto) 73.2 H (45-73) % Lymph % (Auto) 13.3 L (20-40) % [place] % (Auto) 12.1 H (2-11) % Eos % (Auto) 0.2 (0-4) % Baso % (Auto) 0.7 (0-2) % Lymph # (Auto) 0.6 L (1.2-4.9) X10*3/uL [place] # (Auto) 0.5 (0.1-1.2) X10*3/uL Eos # (Auto) 0.0 (0.0-0.4) X10*3/uL Baso # (Auto) 0.0 (0.0-0.2) X10*3/uL Abs Immat Gran (auto) 0.02 (0.00-0.03) X10*3/uL Absolute Neuts (auto) 3.1 (2.0-8.3) x10*3/uL Absolute Nucleated RBC 0.000 (0.0-0.012) X10*3/uL Nucleated RBC % (auto) 0.0 (0.0-0.2) /100WBC Sodium 142 (135-145) mmol/L Potassium 4.1 (3.3-5.1) mmol/L Chloride 98 (96-108) mmol/L Carbon Dioxide 30 H (22-29) mmol/L Anion Gap 18 (12-20) BUN 7 L (9-16) mg/dL Creatinine 0.70 (0.5-1.4) mg/dL Estim Creat Clear Calc 74.0 Estimated GFR > 60 Random Glucose 108 (60-115) mg/dL Calcium 10.0 D (8.4-10.2) mg/dL Magnesium 1.7 (1.6-2.6) mg/dL Total Bilirubin 1.6 H (0.0-1.0) mg/dL AST 404 H (5-31) U/L ALT 123 H (0-31) U/L Alkaline Phosphatase 119 H (39-117) U/L Total Protein 7.6 (6.5-8.0) g/dL Albumin 4.8 (3.5-5.0) g/dL Lipase 109 H (8-78) U/L Ethyl Alcohol 70 mg/dL Independent Interpretation I performed an independent interpretation of an: EKG ( my interpretation EKG normal sinus rhythm rate of 79. PA interval 144. QRS 74. T-wave inversions now evident in anterior leads, no STEMI.) Radiology Impression Discussion of test interpretation with radiology: I have reviewed the radiologist's reading. External Record Review External record reviewed: Inpatient record, Office record, Outpatient record, Prior outpatient labs, Prior outpatient radiology, Primary care record and Outside ED record Tests considered The following testing was considered but not selected: As above Prescription Management I considered prescription management with: Pain Medication and Other Chronic Conditions Patient?s care impacted by: Other Social Determinants Patient?s care significantly limited by Social Determinants of Health including: Alcoholism and drug addiction in family, Problems related to primary support group and Other Social Determinant of Health Critical Care Time Critical Care Time Critical Care Time: Yes Total Critical Care Time: 40 Attestation: I have personally provided critical care time exclusive of time spent on separately billable procedures. Time includes review of lab data, radiology results, discussion with consultants, and monitoring for potential decompensation. Intervention performed as documented. Discharge Plan Discharge Clinical Impression: Alcohol withdrawal syndrome Patient Disposition: Admitted As Inpatient
--- NOTE | 2024-09-07 15:20 | ECG_ITS ---
Test Reason : WITHDRAWL Blood Pressure : */* mmHG Vent. Rate : 79 BPM Atrial Rate : 79 BPM P-R Int : 144 ms QRS Dur : 74 ms QT Int : 368 ms P-R-T Axes : 51 64 50 degrees QTcB Int : 421 ms Normal sinus rhythm Septal infarct , age undetermined Poor data quality Abnormal ECG When compared with ECG of 19-Feb-2024 04:18, Septal infarct is now Present Referred By: Anamika Greer Electronically Signed By: CATHERINE AU MD
[2024-09-07 15:32] LABS: MANUAL DIFF FLAG NO
[2024-09-07 15:36] LABS: Basophils Percent Auto 0.7 % (0-2); Eosinophils Percent Auto 0.2 % (0-4); Hematocrit 43.4 % (37.0-47.0); Hemoglobin 15.6 g/dl (12.0-16.0); Imm Gran Abs Auto 0.02 X10*3/uL (0.00-0.03); Imm Gran Pct Auto 0.5 % (0.0-0.4); Lymphocytes Absolute Auto 0.6 X10*3/uL (1.2-4.9); Lymphocytes Percent Auto 13.3 % (20-40); Mean Corpuscular HGB Conc 35.9 g/dl (31.0-35.0); Mean Corpuscular Hemoglobin 35.9 pg (27.0-33.0); Mean Platelet Volume 9.4 fL (9.4-12.3); Monocytes Absolute Auto 0.5 X10*3/uL (0.1-1.2); Monocytes Percent Auto 12.1 % (2-11); Neutrophils Absolute Auto 3.1 x10*3/uL (2.0-8.3); Neutrophils Percent Auto 73.2 % (45-73); Platelet Count 175 X10*3/uL (160-400); Red Blood Count 4.34 X10*6/uL (4.20-5.50); Red Cell Distribution Width 12.2 % (11.0-16.0); White Blood Count 4.2 X10*3/uL (4.8-10.8)
[2024-09-07 15:49] LABS: Ethanol 70 mg/dL
[2024-09-07 16:10] LABS: Alanine Aminotransferase 123 U/L (0-31); Albumin Level 4.8 g/dL (3.5-5.0); Anion Gap 18 (12-20); Aspartate Amino Transferase 404 U/L (5-31); Bilirubin Total 1.6 mg/dL (0.0-1.0); Blood Urea Nitrogen 7 mg/dL (9-16); Carbon Dioxide 30 mmol/L (22-29); Chloride 98 mmol/L (96-108); Estimated Glomerular Filt Rate > 60; Glucose Random 108 mg/dL (60-115); Lipase 109 U/L (8-78); Magnesium 1.7 mg/dL (1.6-2.6); Potassium 4.1 mmol/L (3.3-5.1); Sodium 142 mmol/L (135-145); Total Protein 7.6 g/dL (6.5-8.0)
[2024-09-07] MEDS: ondansetron HCL 4 MG/2 ML VIAL IVPUSH ×2 (16:12→19:46)
[2024-09-07 16:40] LABS: Alkaline Phosphatase 119 U/L (39-117)
[2024-09-07] MEDS: 0.9 % Sodium Chloride 1,000 ML 999 ML IV (16:45)
[2024-09-07] MEDS: diazePAM 10 MG/2 ML CARTRIDGE 2.5 MG IVPUSH (16:45)
[2024-09-07 17:01] VITALS: BP 133/98; PULSE 94; RESP 18; TEMP 36.8; O2SAT 96
--- NOTE | 2024-09-07 17:02 | PC.NURSE ---
Pt reports +decrease in N/V after IV meds gv per orders; CIWA score 13; Octavia, provider made aware; vss
[2024-09-07] MEDS: Metoclopramide HCl 10 MG/2 ML VIAL IVPUSH (17:30)
[2024-09-07] MEDS: PHENobarbitaL sodium 130 MG/ML IM ONCE 172 MG IM (17:30)
--- NOTE | 2024-09-07 17:52 | PM.IMHP ---
History of Present Illness Date of Service: 09/07/24 Attending physician on admission: Joshua Gastelum Chief Complaint: alcohol withdrawal 39y/o f with pmhx of opiate abuse on Suboxone, ETOH abuse, presenting to the ED complaining of ETOH withdrawal and requesting detox,as per patient -she is drinking about a sleeve of vodka daily, last drink last night . Denies history of withdrawal seizures. Reports associated nausea, vomiting, and back pain. Patient says that has nausea vomiting started since yesterday-she feels nauseated and vomited almost 10 times, no bone pain blood in the vomitus, no abdominal pain, cough or phlegm or fever. She said she was vomiting a lot and then started to have some back pain also(she attributes it to for vomiting with force) . She said in addition to alcohol she uses marijuana(smokes). She used marijuana yesterday last time. She denies any recreational drug use. Denies CP/SOB. She is tremulous and anxious. Labs reviewed: CBC -mild leukopenia chronic, BMP seems fine. LFTs elevated as well as alk-phos and lipase. In ED: In ED received phenobarb, Zofran/Reglan, Valium: Her her CIWA scale is still elevated, ED requested admission for alcohol withdrawal. Review of Systems Review of Systems: As above. Yes all other systems are reviewed and are negative [facility] Medical History Opioid abuse Alcohol abuse Pancreatitis Family History Mother No problems noted. Father Alcoholic Sister Hypertension Maternal Grandmother Breast cancer Paternal Grandmother Breast cancer Other No family history of coronary artery disease Surgical History History of tonsillectomy and adenoidectomy [place] teeth extracted Social History Household Members: Spouse Housing: House Do you presently have visiting nurse or other home services: No Alcohol intake: current Alcohol intake frequency: 3 or more drinks per day Alcohol type: hard liquor Patient Tobacco Use Status: Current everyday Tobacco user Tobacco use type: Cigarette Cigarette Packs Per Day: 0.5 Cigarettes Per Day: 10.0 Years Smoked: 10 Smoked in Last 30 Days: Yes Second Hand Smoke Exposure: No Use of substances other than those prescribed or required for medical reasons: Yes Substance Use Type: Opiates Substance Use Type Other:: on suboxone Substance Use Frequency Other:: pt states she's clean Any prior treatment program specific to substance use: Yes Advance Directives: Yes Advance Directives on File: Yes Advance Directives Date on File: 11/16/20 Nutrition Risks: Acute nausea or vomiting x1 week Patient : No service: No Current occupational status: employed Cognitive needs: No Hearing needs: No Vision needs: No Meds Allergies Allergy/AdvReac Type Severity Reaction Status Date / Time Penicillins [PENICILLINS] Allergy Intermediate HIVES Verified 09/07/24 15:21 Active Medications: Current Medications Acetaminophen (Acetaminophen 325 Mg Tablet) 650 mg PO Q6H PRN PRN Reason: Pain, Mild 1-3,fever,headache Calcium Carbonate (Calcium Carbonate 750 Mg Tab.Chew) 750 mg PO Q4H PRN PRN Reason: Heartburn Dextrose/Sodium Chloride (D5ns) 1,000 mls @ 100 mls/hr IVCONT .Q10H [facility] Magnesium Hydroxide (Milk Of Magnesia 30 Ml Oral.Susp) 30 ml PO DAILY PRN PRN Reason: Constipation Melatonin (Melatonin 3 Mg Tablet) 6 mg PO BEDTIME PRN PRN Reason: Insomnia Pharmacy Consult (Consult Rx Etoh Phenob Im/Po) 1 each MISCELLANE ONCE PRN; Protocol PRN Reason: Consult order Phenobarbital (Phenobarbital 30 Mg Tablet) 30 mg PO BID [facility] Stop: 09/09/24 21:01 Phenobarbital (Phenobarbital 15 Mg Tablet) 15 mg PO BID [facility] Stop: 09/11/24 21:01 Phenobarbital (Phenobarbital 15 Mg Tablet) 15 mg PO DAILY [facility] Stop: 09/13/24 09:01 Phenobarbital Sodium (Phenobarbital Sodium 130 Mg/Ml Vial Im Q3hx2) 129 mg IM Q3H [facility] Stop: 09/08/24 00:01 Sodium Chloride (0.9 % Sodium Chloride Flush 3 Ml Syringe) 3 ml IVFLUSH QSHIFT [facility] Home Medications ?Medication ?Instructions ?Recorded ?Confirmed ?Last Taken ?Type buprenorphine 8 mg-naloxone 2 mg 1 strip sublingual DAILY 12/17/21 09/07/24 09/06/24 History sublingual film (Suboxone) folic acid 1 mg tablet 1 mg PO DAILY 02/19/24 09/07/24 09/06/24 History thiamine HCl (vitamin B1) 100 mg 100 mg PO TID 02/19/24 09/07/24 09/06/24 History tablet Physical Exam Vital Signs and Narrative: Vital Signs: Last Vital Signs Temp 98.3 F 09/07/24 17:01 Pulse 94 09/07/24 17:01 Resp 18 09/07/24 17:01 BP 133/98 H 09/07/24 17:01 Pulse Ox 96 09/07/24 17:01 O2 Del Method Room Air 09/07/24 17:01 BMI result Body Mass Index 16.3 Appearance: Alert.? Oriented X3. anxious and tremulous cvs: rrr, [id number] . res: clear to auscultation ,no rhonchii or wheezing abd: no rebound or guarding ,nt, bs present. ext pulses present , no cyanosis . MS:has paraspinal muscle pain especially in upper lumbar area. neuro: axo3 , nonfocal. Results Labs 09/07/24 15:29 09/07/24 15:29 Labs: Laboratory Results - last 24 hr 09/07/24 15:29 MCV 100.0 H MCH 35.9 H MCHC 35.9 H RDW 12.2 Plt Count 175 MPV 9.4 Immature Gran % (Auto) 0.5 H Neut % (Auto) 73.2 H Lymph % (Auto) 13.3 L [place] % (Auto) 12.1 H Eos % (Auto) 0.2 Baso % (Auto) 0.7 Lymph # (Auto) 0.6 L [place] # (Auto) 0.5 Eos # (Auto) 0.0 Baso # (Auto) 0.0 Abs Immat Gran (auto) 0.02 Absolute Neuts (auto) 3.1 Absolute Nucleated RBC 0.000 Nucleated RBC % (auto) 0.0 Anion Gap 18 Estim Creat Clear Calc 74.0 Estimated GFR > 60 Random Glucose 108 Calcium 10.0 D Magnesium 1.7 Total Bilirubin 1.6 H AST 404 H ALT 123 H Alkaline Phosphatase 119 H Total Protein 7.6 Albumin 4.8 Lipase 109 H Ethyl Alcohol 70 Assessment and Plan (1) Alcohol withdrawal syndrome: Qualifiers: Complication of substance-induced condition: uncomplicated Qualified Code(s): F10.930 - Alcohol use, unspecified with withdrawal, uncomplicated Status: Acute Plan 39y/o f with pmhx of opiate use on Suboxone, ETOH abuse, presenting to the ED complaining of ETOH withdrawal: 1. alcohol withdrawal: ciwa around 15 plan: Monitor CIWA/tele, thiamine folic acid, phenobarb protocol, clonidine. Counseled about abstain from alcohol Addiction consult 2. Nausea/vomiting: possible insetting of alcohol withdrawal vs cyclic vomiting syndrome vs mild pancreatitis plan: IV hydration, clear liquid diet, encouraged to abstain from marijuana use, ppi, antiemetics. if worsen -may need abd imaging 3. Elevated LFTs: Likely in the setting of alcohol use. Will monitor LFTs if trending up then may need further workup. 4. Back pain-mostly in the upper lumbar area, paraspinal muscle area. As per the patient it started after for vomiting with force. added lidocaine patch L-spine xary. 5. hx of opiate use on Suboxone. dvt prophylax: s/c lovenox Patient will benefit from 2 midnight stays considering alcohol withdrawal, nausea vomiting unable to tolerate p.o., and workup for elevated LFTs and back pain: Need IV hydration, antiemetics, phenobarb protocol, renal function and electrolyte monitoring as well as tele monitoring. Above management discussed with the patient and her mother in detail length at bedside, they both understand and in agreement with the above plan, time spent 70 minute, patient is full code, all questions at present answered. Quality Stroke Does the patient have a stroke diagnosis?: No VTE Prior VTE?: No VTE Risk Level:: Medical - moderate - high VTE Device Contraindication: N/A - Device Ordered VTE Drug Contraindication: N/A - Med Ordered
[2024-09-07 18:15] LABS: Appearance Urine Clear; Color Urine Dark Yellow; Glucose Urine UA Negative (Negative); Leukocyte Esterase Urine Small (1+) (Negative); Nitrite Urine Positive (Negative); Specific Gravity - Urine 1.025 (1.005-1.025); UMIC TRIGGER UACC YES; Urine Blood Negative (Negative); Urine Ketones Trace mg/dL (Negative); Urine Protein 100 (2+) mg/dL (Neg-Trace)
[2024-09-07 18:24] LABS: Amphetamine Screen Urine Not Detected (Not Detect); Barbiturates, Urine Not Detected (Not Detect); Benzodiazepines Screen Urine Not Detected (Not Detect); Buprenorphine Scr Positive (Not Detect); Cannabinoid Screen Urine POSITIVE (Not Detect); Cocaine Screen Urine Not Detected (Not Detect); Fentanyl, urine Not Detected (Not Detect); Methadone Screen, Urine Not Detected (Not Detect); Opiate Screen Urine Not Detected (Not Detect); Oxycodone Screen Urine Not Detected (Not Detect); Phencyclidine Screen Urine Not Detected (Not Detect)
[2024-09-07 18:36] LABS: Bacteria Urine 4+ (None Seen); Hyaline Casts Urine 0-2 /LPF (0-2); RBC Urine 0-2 /HPF (0-2); UACC Culture Trigger YES
[2024-09-07] MEDS: Dextrose 5 % and 0.9 % NaCl 1,000 ML 100 ML IVCONT (18:38)
--- NOTE | 2024-09-07 18:48 | PHA.MEDREC ---
Addendum entered by Bibi Beaulieu RPh 09/07/24 18:50: reviewed by [facility]. Original Note: Pharmacy Consult ? Medication Reconciliation Pharmacy has completed the medication reconciliation. Spoke to patient to confirm med list. Patient states she is no longer taking Topiramate 100 mg. Patient last had her medications yesterday.
[2024-09-07 19:30] VITALS: BP 141/100; PULSE 83; RESP 17
[2024-09-07] MEDS: PHENobarbitaL sodium 130 MG/ML VIAL IM (19:31)
[2024-09-07] MEDS: Pantoprazole Sodium 40 MG/10 ML VIAL IVPUSH (19:31)
[2024-09-07] MEDS: Lidocaine 4 % Patch ADH..PATCH 1 PATCH TRANSDERMA (19:32)
[2024-09-07] MEDS: Enoxaparin Sodium 40 MG/0.4 ML SYRINGE SUBCUT (19:34)
[2024-09-07] MEDS: Buprenorphine/Naloxone 8/2 mg FILM 1 FILM SUBLINGUAL (19:46)
[2024-09-07] MEDS: Folic Acid 1 MG TABLET PO (19:46)
[2024-09-07 20:03] VITALS: BMI 19.1
[2024-09-07] MEDS: cloNIDine HCL 0.1 MG TABLET PO (20:08)
[2024-09-07] MEDS: PHENobarbitaL sodium 130 MG/ML VIAL IM Q3Hx2 129 MG IM (22:10)
[2024-09-07] MEDS: Thiamine HCL 100 MG TABLET PO (22:11)
[2024-09-07] MEDS: 0.9 % Sodium Chloride Flush 3 ML SYRINGE IVFLUSH (22:13)
[2024-09-07] MEDS: Acetaminophen 325 MG TABLET 650 MG PO (22:18)
[2024-09-08] VITALS (8 sets, daily range): BP systolic 112–167; BP diastolic 74–97; PULSE 58–80; RESP 16–18; TEMP 36.5–37.2; O2SAT 97–99
[2024-09-08] MEDS: cefTRIAXone sodium 1 GM VIAL IVPUSH ×2 (00:55→22:32)
[2024-09-08] MEDS: PHENobarbitaL sodium 130 MG/ML VIAL IM Q3Hx2 129 MG IM (00:56)
[2024-09-08] MEDS: ondansetron HCL 4 MG/2 ML VIAL IVPUSH ×4 (00:56→18:17)
[2024-09-08] MEDS: droPERidol 5 MG/2 ML VIAL 1.25 MG IVPUSH (04:20)
[2024-09-08] MEDS: Pantoprazole Sodium 40 MG/10 ML VIAL IVPUSH (04:20)
[2024-09-08] MEDS: Dextrose 5 % and 0.9 % NaCl 1,000 ML 100 ML IVCONT ×2 (04:20→15:47)
[2024-09-08 07:15] LABS: Alanine Aminotransferase 75 U/L (0-31); Albumin Level 3.4 g/dL (3.5-5.0); Alkaline Phosphatase 81 U/L (39-117); Anion Gap 12 (12-20); Aspartate Amino Transferase 206 U/L (5-31); Bilirubin Total 1.5 mg/dL (0.0-1.0); Blood Urea Nitrogen 8 mg/dL (9-16); Carbon Dioxide 28 mmol/L (22-29); Chloride 102 mmol/L (96-108); Creatinine Clr Calc Pharmacy 99.6; Estimated Glomerular Filt Rate > 60; Glucose Random 108 mg/dL (60-115); Lipase 100 U/L (8-78); Potassium 3.3 mmol/L (3.3-5.1); Sodium 139 mmol/L (135-145); Total Protein 5.5 g/dL (6.5-8.0)
[2024-09-08] MEDS: PHENobarbitaL 30 MG TABLET PO ×2 (08:53→21:17)
[2024-09-08] MEDS: Buprenorphine/Naloxone 8/2 mg FILM 1 FILM SUBLINGUAL (08:53)
[2024-09-08] MEDS: 0.9 % Sodium Chloride Flush 3 ML SYRINGE IVFLUSH ×2 (08:53→21:17)
[2024-09-08] MEDS: Thiamine HCL 100 MG TABLET PO ×3 (08:53→21:17)
[2024-09-08] MEDS: Folic Acid 1 MG TABLET PO (08:53)
[2024-09-08] MEDS: Lidocaine 4 % Patch ADH..PATCH 1 PATCH TRANSDERMA (08:53)
[2024-09-08] MEDS: cloNIDine HCL 0.1 MG TABLET PO ×2 (08:53→21:24)
--- NOTE | 2024-09-08 14:07 | MHC.CM.PN ---
Pt self-care, lives at home with her /HCP Charlie who will transport her home at discharge. Pt [facility] [place]. Pt does not have a PCP at this time, local list of PCP's given to pt.
--- NOTE | 2024-09-08 15:23 | HO.ADDICT_ITS ---
History of Present Illness Date of Service: 09/08/24 Chief Complaint: alcohol withdrawl Reason for Consult: AUD Sources of Information: patient interviewed and chart reviewed HPI Narrative: Patient is a 39 year old female with history of AUD, medically admitted with acute alcohol withdrawal. Patient seen in room 477. She is awake, alert, pleasant and engaged in interview. She reports feeling much better than when she presented, but still experiencing nausea and tremor. She states that following last admission here at [facility] – [place] 01/20[place], she went home and abstained from alcohol a little over 3 months, then slowly introduced it again until she was drinking at least a sleeve of vodka daily (sometimes more). She reports that prior to admission she has been trying to taper her alcohol intake as she was noting that she was feeling sick/nauseous more often. She has also been taking Thiamine and folic acid at home. Discussed previous treatment for AUD--she reports that she has trialed KIRAN, however was inconsistent with taking it and was still ambivalent about her overall goals with alcohol. Trialed both Acamprosate and Topirimate. Today she reports that she would like to trial KIRAN again She has also decided to stay with her mother for some time, as her mother does not drink. Labs reviewed--elevated liver enzymes, elevated lipase Review of Systems Constitutional: Reports as per HPI, Reports difficulty sleeping, Reports malaise and Reports poor appetite Gastrointestinal: Reports nausea Psychiatric: Reports anxiety Diagnostics Vital Signs (24Hr): Vital Signs - 24 hr 09/07/24 17:01 09/07/24 19:30 09/08/24 00:00 Temperature 98.3 F 98.0 F Pulse Rate 94 83 64 Respiratory Rate 18 17 16 Blood Pressure 133/98 H 141/100 H 131/86 Pulse Oximetry 96 98 Oxygen Delivery Method Room Air Room Air 09/08/24 03:42 09/08/24 07:52 09/08/24 11:01 Temperature 98.0 F 98.5 F 98.9 F Pulse Rate 77 62 80 Respiratory Rate 16 16 16 Blood Pressure 151/84 H 121/91 H 121/87 Pulse Oximetry 97 98 98 Oxygen Delivery Method Room Air Room Air Room Air BMI result Body Mass Index 19.1 Labs 09/07/24 15:29 09/08/24 05:54 Labs: Laboratory Results - last 48 hr 09/07/24 09/07/2425 15:29 18:05 05:54 WBC 4.2 L RBC 4.34 Hgb 15.6 Hct 43.4 MCV 100.0 H MCH 35.9 H MCHC 35.9 H RDW 12.2 Plt Count 175 MPV 9.4 Immature Gran % (Auto) 0.5 H Neut % (Auto) 73.2 H Lymph % (Auto) 13.3 L Leslie % (Auto) 12.1 H Eos % (Auto) 0.2 Baso % (Auto) 0.7 Lymph # (Auto) 0.6 L Leslie # (Auto) 0.5 Eos # (Auto) 0.0 Baso # (Auto) 0.0 Abs Immat Gran (auto) 0.02 Absolute Neuts (auto) 3.1 Absolute Nucleated RBC 0.000 Nucleated RBC % (auto) 0.0 Hold Purple Top SEE NOTE Sodium 142 139 Potassium 4.1 3.3 Chloride 98 102 Carbon Dioxide 30 H 28 Anion Gap 18 12 BUN 7 L 8 L Creatinine 0.70 0.61 Estim Creat Clear Calc 74.0 99.6 Estimated GFR > 60 > 60 Random Glucose 108 108 Calcium 10.0 D 8.0 L D Magnesium 1.7 Total Bilirubin 1.6 H 1.5 H AST 404 H 206 H ALT 123 H 75 H Alkaline Phosphatase 119 H 81 Total Protein 7.6 5.5 L Albumin 4.8 3.4 L Lipase 109 H 100 H Urine Color Dark Yellow Urine Appearance Clear Urine pH 8.0 Ur Specific [place] 1.025 Urine Protein 100 (2+) H Urine Glucose (UA) Negative Urine Ketones Trace Urine Blood Negative Urine Nitrite Positive H Ur Leukocyte Esterase Small (1+) H Urine RBC 0-2 Urine WBC 11-20 H Ur Squamous Epith Cells 3-5 Urine Bacteria 4+ Hyaline Casts 0-2 Urine Opiates Screen Not Detected Ur Buprenorphine Scrn Positive H Ur Oxycodone Screen Not Detected Urine Methadone Screen Not Detected Urine Fentanyl Screen Not Detected Ur Barbiturates Screen Not Detected Ur Phencyclidine Scrn Not Detected Ur Amphetamines Screen Not Detected U Benzodiazepines Scrn Not Detected Urine Cocaine Screen Not Detected U Marijuana (THC) Screen POSITIVE H Ethyl Alcohol 70 Mental Status Exam Mental Status Exam Patient Appearance: Appropriate Patient Orientation: Person, Place, Time and Situation Level of Consciousness: Awake, Appropriate and Alert Patient Behavior: Appropriate and Talkative Mood Description: Anxious Affect Description: Calm Speech Pattern: Clear Hallucinations: None Thought Content: positive for Intact Medications Medications Current Medications Acetaminophen (Acetaminophen 325 Mg Tablet) 650 mg PO Q6H PRN PRN Reason: Pain, Mild 1-3,fever,headache Last Admin: 09/07/24 22:18 Dose: 650 mg Buprenorphine/Naloxone (Buprenorphine/Naloxone 8/2 Mg Film) 1 film SUBLINGUAL DAILY [facility] Last Admin: 09/08/24 08:53 Dose: 1 film Calcium Carbonate (Calcium Carbonate 750 Mg Tab.Chew) 750 mg PO Q4H PRN PRN Reason: Heartburn Ceftriaxone Sodium (Ceftriaxone Sodium 1 Gm Vial) 1 gm IVPUSH 2200 [facility] Last Admin: 09/08/24 00:55 Dose: 1 gm Clonidine HCl (Clonidine Hcl 0.1 Mg Tablet) 0.1 mg PO BID PRN; Protocol PRN Reason: anxiety Last Admin: 09/08/24 08:53 Dose: 0.1 mg Enoxaparin Sodium (Enoxaparin Sodium 40 Mg/0.4 Ml Syringe) 40 mg SUBCUT Q24H [facility] Last Admin: 09/07/24 19:34 Dose: 40 mg Folic Acid (Folic Acid 1 Mg Tablet) 1 mg PO DAILY [facility] Last Admin: 09/08/24 08:53 Dose: 1 mg Dextrose/Sodium Chloride (D5ns) 1,000 mls @ 100 mls/hr IVCONT .Q10H [facility] Last Admin: 09/08/24 04:20 Dose: 100 mls/hr Lidocaine (Lidocaine 4 % Patch Adh..Patch) 1 patch TRANSDERMA DAILY [facility]; Protocol Last Admin: 09/08/24 08:53 Dose: 1 patch Magnesium Hydroxide (Milk Of Magnesia 30 Ml Oral.Susp) 30 ml PO DAILY PRN PRN Reason: Constipation Melatonin (Melatonin 3 Mg Tablet) 6 mg PO BEDTIME PRN PRN Reason: Insomnia Ondansetron HCl (Ondansetron Hcl 4 Mg/2 Ml Vial) 4 mg IVPUSH Q4H PRN PRN Reason: Nausea and Vomiting Last Admin: 09/08/24 13:21 Dose: 4 mg Pantoprazole Sodium (Pantoprazole Sodium 40 Mg/10 Ml Vial) 40 mg IVPUSH DAILY@0630 [facility] Last Admin: 09/08/24 04:20 Dose: 40 mg Pharmacy Consult (Consult Rx Etoh Phenob Im/Po) 1 each MISCELLANE ONCE PRN; Protocol PRN Reason: Consult order Phenobarbital (Phenobarbital 30 Mg Tablet) 30 mg PO BID [facility] Stop: 09/09/24 21:01 Last Admin: 09/08/24 08:53 Dose: 30 mg Phenobarbital (Phenobarbital 15 Mg Tablet) 15 mg PO BID [facility] Stop: 09/11/24 21:01 Phenobarbital (Phenobarbital 15 Mg Tablet) 15 mg PO DAILY [facility] Stop: 09/13/24 09:01 Sodium Chloride (0.9 % Sodium Chloride Flush 3 Ml Syringe) 3 ml IVFLUSH QSHIFT [facility] Last Admin: 09/08/24 14:32 Dose: Not Given Thiamine HCl (Thiamine Hcl 100 Mg Tablet) 100 mg PO TID [facility] Last Admin: 09/08/24 08:53 Dose: 100 mg Allergies Allergies Allergy/AdvReac Type Severity Reaction Status Date / Time Penicillins [PENICILLINS] Allergy Intermediate HIVES Verified 09/07/24 15:21 Assessment & Plan Assessment & Plan (1) Alcohol use disorder, severe, dependence: Status: Acute Code(s): F10.20 - Alcohol dependence, uncomplicated Assessment and Plan: * with acute withdrawal---sx currently managed with pheno taper * continue thiamine and folic acid * would like to restart acamprosate at discharge * program review director to follow up in AM with IOP information Total time managing care of this patient today __50__ minutes. [facility] Past Medical History Medical History (Updated 09/08/24 @ 21:14 by Yokasta Adam CNP) Opioid abuse Alcohol abuse Pancreatitis Family History Family History Mother No problems noted. Father Alcoholic Sister Hypertension Maternal Grandmother Breast cancer Paternal Grandmother Breast cancer Other No family history of coronary artery disease Surgical History Surgical History History of tonsillectomy and adenoidectomy [place] teeth extracted Social History Social History Household Members: Spouse Housing: House Do you presently have visiting nurse or other home services: No Alcohol intake: current Alcohol intake frequency: 3 or more drinks per day Alcohol type: hard liquor Comment: seizure precautions, pads in place Patient Tobacco Use Status: Current someday Tobacco user Tobacco use type: Cigarette Cigarette Packs Per Day: 0.5 Cigarettes Per Day: 10 Years Smoked: 10 e-Cigarette/Vaping Use: Currently Using Second Hand Smoke Exposure: No Substance Use Type: Opiates Advance Directives Date on File: 11/16/20 service: No Current occupational status: employed Cognitive needs: No Hearing needs: No Vision needs: No
--- NOTE | 2024-09-08 17:00 | HO.PM.IMPN ---
Subjective Subjective Date of Service: 09/08/24 Interval History: Alcohol withdrawal, nausea vomiting Review of Systems Patient is still tremulous and anxious, Still nauseated unable to tolerate diet yet, Review of Systems: Yes all other systems are reviewed and are negative Physical Exam Vital Signs: Vital Signs: Last Vital Signs Temp 98.0 F 09/08/24 15:43 Pulse 62 09/08/24 15:43 Resp 18 09/08/24 15:43 BP 112/87 09/08/24 15:43 Pulse Ox 97 09/08/24 15:43 O2 Del Method Room Air 09/08/24 15:43 BMI result Body Mass Index 19.1 Appearance: Alert.? Oriented X3. anxious and tremulous cvs: rrr, [id number] . res: clear to auscultation ,no rhonchii or wheezing abd: no rebound or guarding ,nt, bs present. ext pulses present , no cyanosis . MS:has paraspinal muscle pain improved significantly neuro: axo3 , nonfocal. Objective Data Active Medications Acetaminophen (Acetaminophen 325 Mg Tablet) 650 mg PO Q6H PRN PRN Reason: Pain, Mild 1-3,fever,headache Last Admin: 09/07/24 22:18 Dose: 650 mg Documented By: HUMERA Buprenorphine/Naloxone (Buprenorphine/Naloxone 8/2 Mg Film) 1 film SUBLINGUAL DAILY [facility] Last Admin: 09/08/24 08:53 Dose: 1 film Documented By: GEMINI Calcium Carbonate (Calcium Carbonate 750 Mg Tab.Chew) 750 mg PO Q4H PRN PRN Reason: Heartburn Ceftriaxone Sodium (Ceftriaxone Sodium 1 Gm Vial) 1 gm IVPUSH 2200 [facility] Last Admin: 09/08/24 00:55 Dose: 1 gm Documented By: HUMERA Clonidine HCl (Clonidine Hcl 0.1 Mg Tablet) 0.1 mg PO BID PRN; Protocol PRN Reason: anxiety Last Admin: 09/08/24 08:53 Dose: 0.1 mg Documented By: GEMINI Enoxaparin Sodium (Enoxaparin Sodium 40 Mg/0.4 Ml Syringe) 40 mg SUBCUT Q24H [facility] Last Admin: 09/07/24 19:34 Dose: 40 mg Documented By: JIMI Folic Acid (Folic Acid 1 Mg Tablet) 1 mg PO DAILY [facility] Last Admin: 09/08/24 08:53 Dose: 1 mg Documented By: GEMINI Dextrose/Sodium Chloride (D5ns) 1,000 mls @ 100 mls/hr IVCONT .Q10H [facility] Last Admin: 09/08/24 15:47 Dose: 100 mls/hr Documented By: DALTON Lidocaine (Lidocaine 4 % Patch Adh..Patch) 1 patch TRANSDERMA DAILY [facility]; Protocol Last Admin: 09/08/24 08:53 Dose: 1 patch Documented By: GEMINI Magnesium Hydroxide (Milk Of Magnesia 30 Ml Oral.Susp) 30 ml PO DAILY PRN PRN Reason: Constipation Melatonin (Melatonin 3 Mg Tablet) 6 mg PO BEDTIME PRN PRN Reason: Insomnia Ondansetron HCl (Ondansetron Hcl 4 Mg/2 Ml Vial) 4 mg IVPUSH Q4H PRN PRN Reason: Nausea and Vomiting Last Admin: 09/08/24 13:21 Dose: 4 mg Documented By: HEAVENLY Pantoprazole Sodium (Pantoprazole Sodium 40 Mg/10 Ml Vial) 40 mg IVPUSH DAILY@0630 [facility] Last Admin: 09/08/24 04:20 Dose: 40 mg Documented By: HUMERA Pharmacy Consult (Consult Rx Etoh Phenob Im/Po) 1 each MISCELLANE ONCE PRN; Protocol PRN Reason: Consult order Phenobarbital (Phenobarbital 30 Mg Tablet) 30 mg PO BID [facility] Stop: 09/09/24 21:01 Last Admin: 09/08/24 08:53 Dose: 30 mg Documented By: GEMINI Phenobarbital (Phenobarbital 15 Mg Tablet) 15 mg PO BID [facility] Stop: 09/11/24 21:01 Phenobarbital (Phenobarbital 15 Mg Tablet) 15 mg PO DAILY [facility] Stop: 09/13/24 09:01 Sodium Chloride (0.9 % Sodium Chloride Flush 3 Ml Syringe) 3 ml IVFLUSH QSHIFT [facility] Last Admin: 09/08/24 14:32 Dose: Not Given Documented By: HEAVENLY Non-Admin Reason: IV Running Thiamine HCl (Thiamine Hcl 100 Mg Tablet) 100 mg PO TID [facility] Last Admin: 09/08/24 15:41 Dose: 100 mg Documented By: DALTON Labs 09/07/24 15:29 09/08/24 05:54 Labs: Laboratory Results - last 24 hr 09/07/24 09/08/24 18:05 05:54 Hold Purple Top SEE NOTE Anion Gap 12 Estim Creat Clear Calc 99.6 Estimated GFR > 60 Random Glucose 108 Calcium 8.0 L D Total Bilirubin 1.5 H AST 206 H ALT 75 H Alkaline Phosphatase 81 Total Protein 5.5 L Albumin 3.4 L Lipase 100 H Urine Color Dark Yellow Urine Appearance Clear Urine pH 8.0 Ur Specific [place] 1.025 Urine Protein 100 (2+) H Urine Glucose (UA) Negative Urine Ketones Trace Urine Blood Negative Urine Nitrite Positive H Ur Leukocyte Esterase Small (1+) H Urine RBC 0-2 Urine WBC 11-20 H Ur Squamous Epith Cells 3-5 Urine Bacteria 4+ Hyaline Casts 0-2 Urine Opiates Screen Not Detected Ur Buprenorphine Scrn Positive H Ur Oxycodone Screen Not Detected Urine Methadone Screen Not Detected Urine Fentanyl Screen Not Detected Ur Barbiturates Screen Not Detected Ur Phencyclidine Scrn Not Detected Ur Amphetamines Screen Not Detected U Benzodiazepines Scrn Not Detected Urine Cocaine Screen Not Detected U Marijuana (THC) Screen POSITIVE H Microbiology Microbiology Results: Microbiology 09/07/24 Unknown Urine Culture - Preliminary Urine clean catch - Clean Catch Midstream Culture too young to evaluate. Assessment and Plan (1) Alcohol withdrawal syndrome: Status: Acute Assessment and Plan: 39y/o f with pmhx of opiate use on Suboxone, ETOH abuse, presenting to the ED complaining of ETOH withdrawal: 1. alcohol withdrawal: ciwa 9 plan: Monitor CIWA/tele, thiamine folic acid, phenobarb protocol, clonidine. Counseled about abstain from alcohol Addiction consult 2. Nausea/vomiting: cyclic vomiting syndrome vs mild pancreatitis plan: Vomiting improved IV hydration, clear liquid diet,trial of full liquid if tolerate, encouraged to abstain from marijuana use, ppi, antiemetics. if worsen -may need abd imaging 3. Elevated LFTs: Likely in the setting of alcohol use. lfts improving 4. Back pain-mostly in the upper lumbar area, paraspinal muscle area. As per the patient it started after for vomiting with force. added lidocaine patch L-spine xary-seems fine 5. hx of opiate use on Suboxone. dvt prophylax: s/c lovenox Ongoing need for stay: alcohol withdrawal, nausea vomiting unable to tolerate p.o., and workup for elevated LFTs and back pain: Need IV hydration, antiemetics, phenobarb protocol, renal function and electrolyte monitoring as well as tele monitoring. Quality Stroke Does the patient have a stroke diagnosis?: No VTE Prior VTE?: No VTE Risk Level:: Medical - moderate - high VTE Device Contraindication: N/A - Device Ordered VTE Drug Contraindication: N/A - Med Ordered
[2024-09-08] MEDS: Enoxaparin Sodium 40 MG/0.4 ML SYRINGE SUBCUT (18:17)
[2024-09-08] MEDS: Acetaminophen 325 MG TABLET 650 MG PO (22:42)
[2024-09-09] MEDS: Dextrose 5 % and 0.9 % NaCl 1,000 ML 100 ML IVCONT ×2 (00:59→10:46)
[2024-09-09] MEDS: Melatonin 3 MG TABLET 6 MG PO (01:02)
[2024-09-09 02:05] VITALS: PULSE 55; RESP 16
[2024-09-09 03:31] VITALS: BP 136/88; PULSE 62; RESP 18; TEMP 36.2; O2SAT 97
[2024-09-09] MEDS: Pantoprazole Sodium 40 MG/10 ML VIAL IVPUSH (05:22)
[2024-09-09 07:05] VITALS: BP 130/86; PULSE 80; RESP 18; TEMP 36.7; O2SAT 98
[2024-09-09 07:21] LABS: Alanine Aminotransferase 72 U/L (0-31); Albumin Level 3.7 g/dL (3.5-5.0); Alkaline Phosphatase 82 U/L (39-117); Anion Gap 12 (12-20); Aspartate Amino Transferase 171 U/L (5-31); Bilirubin Total 1.7 mg/dL (0.0-1.0); Blood Urea Nitrogen 3 mg/dL (9-16); Calcium 8.5 mg/dL (8.4-10.2); Carbon Dioxide 28 mmol/L (22-29); Chloride 103 mmol/L (96-108); Estimated Glomerular Filt Rate > 60; Glucose Random 100 mg/dL (60-115); Potassium 3.5 mmol/L (3.3-5.1); Sodium 139 mmol/L (135-145); Total Protein 5.8 g/dL (6.5-8.0)
[2024-09-09] MEDS: Folic Acid 1 MG TABLET PO (08:37)
[2024-09-09] MEDS: PHENobarbitaL 30 MG TABLET PO (08:37)
[2024-09-09] MEDS: Thiamine HCL 100 MG TABLET PO (08:37)
[2024-09-09] MEDS: Lidocaine 4 % Patch ADH..PATCH 1 PATCH TRANSDERMA (08:37)
[2024-09-09] MEDS: 0.9 % Sodium Chloride Flush 3 ML SYRINGE IVFLUSH (08:39)
[2024-09-09] MEDS: ondansetron HCL 4 MG/2 ML VIAL IVPUSH (08:39)
[2024-09-09] MEDS: Buprenorphine/Naloxone 8/2 mg FILM 1 FILM SUBLINGUAL (08:40)
[2024-09-09] MEDS: cloNIDine HCL 0.1 MG TABLET PO (08:44)
[2024-09-09 10:59] VITALS: BP 125/82; PULSE 54; RESP 18; TEMP 36.6; O2SAT 99
--- NOTE | 2024-09-09 12:25 | PM.DS ---
DS: Providers Provider Date of Service: 09/09/24 Date of admission: 09/07/24 17:16 Date of discharge: 09/09/24 Primary care physician: Unknown Physician Consults: 09/07/24 16:12 ED Recovery Team Consult Stat Comment: Reason for consultation: wants detox from [facility] 09/07/24 17:19 Addiction Medicine Provider Routine Consulting Provider: Addiction Covering Reason for consultation: alcohol use Attending physician on discharge: Joshua Gastelum Discharging clinician: Joshua Gastelum DS: Diagnosis Discharge Diagnosis (1) Alcohol use disorder, severe, dependence: Status: Acute DS: Summary Hospital Course Hospital Course: HPI:39y/o f with pmhx of opiate abuse on Suboxone, ETOH abuse, presenting to the ED complaining of ETOH withdrawal and requesting detox,as per patient -she is drinking about a sleeve of vodka daily, last drink last night . Denies history of withdrawal seizures. Reports associated nausea, vomiting, and back pain. Patient says that has nausea vomiting started since yesterday-she feels nauseated and vomited almost 10 times, no bone pain blood in the vomitus, no abdominal pain, cough or phlegm or fever. She said she was vomiting a lot and then started to have some back pain also(she attributes it to for vomiting with force) . She said in addition to alcohol she uses marijuana(smokes). She used marijuana yesterday last time. She denies any recreational drug use. Denies CP/SOB. She is tremulous and anxious. Labs reviewed: CBC -mild leukopenia chronic, BMP seems fine. LFTs elevated as well as alk-phos and lipase. In ED: In ED received phenobarb, Zofran/Reglan, Valium: Her her CIWA scale is still elevated, ED requested admission for alcohol withdrawal. Hospital course: Patient came to the hospital because of alcohol withdrawal, found to have mild LFT elevation, also nausea vomiting: Patient was found to have elevated CIWA scale, and mild LFTs and lipase level, had some back pain also-mostly paraspinal muscle area-patient was started on phenobarb protocol: antiemetics, IV hydration, bowel rest, strongly advised to abstain from alcohol and marijuana use, lumbar spine x-ray was done-seems fine. With the above management patient is alcohol withdrawal seems to be improved , LFTs also improving. Patient is tolerating diet and her symptoms also improved. back likely Muscular type -likely due to for several vomiting, improved significantly with lidocaine patch. Above presentation likely associated with alcohol use and possible cyclic vomiting due to marijuana. Mild elevation of lipase without any abdominal pain less likely pancreatitis but likely due to above. LFTs are improving: Monitor outpatient even if needed further workup outpatient. Patient has bacteriuria/pyuria: Question of UTI: Was on started on ceftriaxone, urine cultures still pending. Patient improved significantly with switched to Ceftin 250 mg p.o. b.i.d. for 5 days. plan: LFTs are improving: Monitor outpatient even if needed further workup outpatient. Ceftin 250 mg p.o. b.i.d. for 5 days. Lidocaine patch for pain 7 day supply need. strongly advised to abstain from alcohol and marijuana use. Explain to the patient any new symptoms-patient is to go to nearest emergency room Follow-up outpatient with PCP. Above management discussed with the patient in detail length she understand and in agreement with the above plan, time spent 40 minute. Time Attestation Total time managing care of this patient today: 40 mintues. Discharge Coordination Time (in mins): 40 Quality: Safe Use of Opioids Does Pt have an Active Cancer Diagnosis on the Problem List?: No Quality: Stroke Does the patient have a stroke diagnosis?: No Physical Exam Vital Signs: Vital Signs: Last Vital Signs Temp 97.8 F 09/09/24 10:59 Pulse 54 09/09/24 10:59 Resp 18 09/09/24 10:59 BP 125/82 09/09/24 10:59 Pulse Ox 99 09/09/24 10:59 O2 Del Method Room Air 09/09/24 10:59 BMI result Body Mass Index 19.1 Appearance: Alert.? Oriented X3. cvs: rrr, [id number] . res: clear to auscultation ,no rhonchii or wheezing abd: no rebound or guarding ,nt, bs present. ext pulses present , no cyanosis . MS:has paraspinal muscle pain improved significantly. No deformity or erythema. neuro: axo3 , nonfocal DS: Data Data Completed and Pending Completed studies during hospitalization [Text1]: Procedures Detoxification Services for Substance Abuse Treatment (02/19/24) Labs on day of discharge: Laboratory Results - last 24 hr 09/09/24 06:16 Hold Purple Top SEE NOTE Sodium 139 Potassium 3.5 Chloride 103 Carbon Dioxide 28 Anion Gap 12 BUN 3 L Creatinine 0.59 Estim Creat Clear Calc 103.0 Estimated GFR > 60 Random Glucose 100 Calcium 8.5 D Total Bilirubin 1.7 H AST 171 H ALT 72 H Alkaline Phosphatase 82 Total Protein 5.8 L Albumin 3.7 Preliminary micro results at discharge 09/07/24 Unknown Urine Culture - Preliminary Urine clean catch - Clean Catch Midstream Culture too young to evaluate. Imaging Chest x-ray: Radiologist's impression: L spine xray: No acute findings. Mild dextrocurvature. No significant spondylosis Discharge Plan Discharge Anticipated Discharge Date/Time: 09/09/24 12:13 Patient Disposition: Home, Self-Care Discharge Diagnosis: Alcohol withdrawal, elevated LFTs, possible cyclic vomiting syndrome,?uti Referrals: Physician,Unknown J [Primary Care Provider] - 1 Week Discharge Medications: New cefuroxime axetil 250 mg Tablet 250 mg PO Q12H Qty: 10 0RF Continued buprenorphine-naloxone [Suboxone] 8-2 mg film 1 strip sublingual DAILY thiamine HCl (vitamin B1) 100 mg tablet 100 mg PO TID folic acid 1 mg tablet 1 mg PO DAILY Discharge Orders: Discharge Order (Routine); Ordered 09/09/24 Ordered By: Joshua Gastelum Diet: Advance to usual diet Activity on Discharge: As tolerated Stand Alone Forms: Patient Portal Discharge page Print Language: Chinese Care Plan Goals: Patient came to the hospital because of alcohol withdrawal, found to have mild LFT elevation, also nausea vomiting: Patient was found to have elevated CIWA scale, and mild LFTs and lipase level, had some back pain also-mostly paraspinal muscle area-patient was started on phenobarb protocol: antiemetics, IV hydration, bowel rest, strongly advised to abstain from alcohol and marijuana use, lumbar spine x-ray was done-seems fine. With the above management patient is alcohol withdrawal seems to be improved , LFTs also improving. Patient is tolerating diet and her symptoms also improved. Above presentation likely associated with alcohol use and possible cyclic vomiting due to marijuana. Mild elevation of lipase without any abdominal pain less likely pancreatitis but likely due to above. LFTs are improving: Monitor outpatient even if needed further workup outpatient. Patient has bacteriuria/pyuria: Question of UTI: Was on started on ceftriaxone, urine cultures still pending. Patient improved significantly with switched to Ceftin 250 mg p.o. b.i.d. for 5 days. Health Concerns: LFTs are improving: Monitor outpatient even if needed further workup outpatient. Ceftin 250 mg p.o. b.i.d. for 5 days. strongly advised to abstain from alcohol and marijuana use. Explain to the patient any new symptoms-patient is to go to nearest emergency room Follow-up outpatient with PCP. Plan of Treatment: As above. Assessment: As above.
--- NOTE | 2024-09-09 12:48 | MHC.CM.PN ---
Pt. has been medically cleared for DC, she will go home via family transport, plan is self care.
[2024-09-09] MEDS: cefuroxime axetiL 250 MG TABLET PO (12:51)
== END 2024-09-09 14:38 | disposition home or self-care (01) | DRG 773 ==
LOC: HO.ED 17:14 → HO.EDOVER 17:39 → HO.IMC 19:22
PROVIDERS: Registered Nurse Emergency; Admitting Provider Internal Medicine; Emergency Provider Student in an Organized Health Care Education/Training Program; Visit Provider Internal Medicine
DX: F10.139 Alcohol abuse with withdrawal, unspecified (principal); F11.20 Opioid dependence, uncomplicated; F17.210 Nicotine dependence, cigarettes, uncomplicated; N39.0 Urinary tract infection, site not specified; R11.2 Nausea with vomiting, unspecified; F12.90 Cannabis use, unspecified, uncomplicated; M79.18 Myalgia, other site; Y90.3 Blood alcohol level of 60-79 mg/100 ml; Z71.6 Tobacco abuse counseling; Z79.899 Other long term (current) drug therapy
CPT/HCPCS: 36415; 72100; 80053; 80307; 81001; 83690; 83735; 85025; 87086; 87088; 87186; 93005; 99285; J0696; J1650; J1790; J2405; J2470; J2560; J2765; J3360; S9485

== ENCOUNTER → 2024-09-07 15:20 | Outpatient (BNV) | payer OTHER, SELFPAY | PROVIDERS: Admitting Provider Internal Medicine; Emergency Provider Student in an Organized Health Care Education/Training Program; Visit Provider Internal Medicine Cardiovascular Disease | DX: R94.31 Abnormal electrocardiogram [ECG] [EKG] (principal); F10.239 Alcohol dependence with withdrawal, unspecified | CPT/HCPCS: 93010 ==

== ENCOUNTER 2024-09-07 17:16 | Outpatient (BNV) | payer OTHER, SELFPAY | END 2024-09-07 19:00 | PROVIDERS: Admitting Provider Internal Medicine; Emergency Provider Student in an Organized Health Care Education/Training Program; Visit Provider Student in an Organized Health Care Education/Training Program | DX: M54.50 Low back pain, unspecified (principal) | CPT/HCPCS: 72100 ==

== ENCOUNTER → 2024-09-07 17:16 | Outpatient (BNV) | payer OTHER, SELFPAY | PROVIDERS: Admitting Provider Internal Medicine; Emergency Provider Student in an Organized Health Care Education/Training Program; Visit Provider Nurse Practitioner Psychiatric/Mental Health | DX: F10.20 Alcohol dependence, uncomplicated (principal) | CPT/HCPCS: 99222 ==

== ENCOUNTER → 2024-09-07 17:16 | Outpatient (BNV) | payer OTHER, SELFPAY | PROVIDERS: Admitting Provider Internal Medicine; Emergency Provider Student in an Organized Health Care Education/Training Program; Visit Provider Internal Medicine | DX: F10.930 Alcohol use, unspecified with withdrawal, uncomplicated (principal) | CPT/HCPCS: 99222; 99232 ==